=== PATIENT | male | born 1950 | race Caucasian/White ===

== ENCOUNTER 2017-05-19 10:59 | Day surgery (SDC) | payer OTHER ==
[2017-05-17 11:14] VITALS: BMI 31.1
[~2017-05-19 10:59] MED LIST: ALPRAZolam 0.25 MG TAB PO PRN; ASPIRIN 325 MG TAB PO STA; SODIUM CHLORIDE 0.9% 1,000 ML in EMPTY BAG 1 BAG IV ONE
[2017-05-19 11:41] LABS: Glucose,Whole Blood 126 mg/dL (75-99)
[2017-05-19] MEDS ORDERED: HEPARIN SODIUM 1,000 UN/ML (10ML VL) ONE ×2 (12:02→13:23)
[2017-05-19] MEDS ORDERED: LIDOCAINE 2% INJ 20 MG/ML (20 ML MDV) ONE (12:02)
[2017-05-19] MEDS ORDERED: VERAPAMIL 2.5 MG/ML 2 ML AMP ONE (12:02)
[2017-05-19] MEDS ORDERED: MIDAZOLAM 2 MG/2 ML VIAL ONE ×2 (12:02→12:45)
[2017-05-19] MEDS: MIDAZOLAM 2 MG/2 ML VIAL IV ONE ×2 (12:34→13:12)
[2017-05-19] MEDS ORDERED: fentaNYL (PF) 50 MCG/ML 2 ML AMP ONE (12:36)
[2017-05-19] MEDS ORDERED: LIDOCAINE 2% INJ 20 MG/ML SQ ONE ×2 (12:38→13:04)
[2017-05-19] MEDS ORDERED: fentaNYL (PF) 50 MCG/ML 2 ML AMP IV ONE ×2 (12:39→13:12)
[2017-05-19] MEDS ORDERED: MIDAZOLAM 2 MG/2 ML VIAL IV ONE (12:44)
[2017-05-19] MEDS ORDERED: VERAPAMIL SYRINGE (5 MG/10 ML) IV ONE (13:10)
[2017-05-19] MEDS ORDERED: HEPARIN SODIUM 1,000 UN/ML (10ML VL) IV ONE ×2 (13:12→13:27)
[2017-05-19] MEDS: NITROGLYCERIN 1000MCG/10ML SYRINGE INTRACORON ONE ×4 (13:34→13:57)
[2017-05-19] MEDS ORDERED: HYDROmorphone 2 MG/ML 1 ML SYRINGE ONE (14:02)
[2017-05-19] MEDS ORDERED: CLOPIDOGREL 75 MG TAB ONE (14:02)
[2017-05-19] MEDS ORDERED: HYDROmorphone 2 MG/ML 1 ML SYRINGE IV ONE (14:03)
[2017-05-19] MEDS ORDERED: CLOPIDOGREL 75 MG TAB PO ONE (14:06)
[2017-05-19] MEDS ORDERED: IOHEXOL 350 MG/ML 125ML BOTTLE INJ ONE (14:17)
[2017-05-19] MEDS ORDERED: NITROGLYCERIN SL TABS 0.4 MG TAB SUBLINGUAL PRN ×2 (14:20→14:21)
[2017-05-19] MEDS ORDERED: RX INFO: IV CONTRAST WAS GIVEN 1 EACH MISC MISCELLANE PRN (14:21)
[2017-05-19] MEDS ORDERED: ZOLPIDEM 5 MG TAB PO PRN (14:21)
[2017-05-19] MEDS ORDERED: MAG HYDROX/AL HYDROX/SIMETH 30 ML CUP PO PRN (14:21)
[2017-05-19] MEDS ORDERED: ATROPINE SULFATE 0.1 MG/ML 10ML SYRINGE IV PRN (14:21)
[2017-05-19] MEDS ORDERED: SODIUM CHLORIDE 0.9% 1,000 ML IV SCH (14:30)
[2017-05-19 14:53] LABS: Glucose,Whole Blood 100 mg/dL (75-99)
--- NOTE | 2017-05-19 15:03 | CC ---
CARDIAC CATHETERIZATION REPORT DATE OF SERVICE: 05/19/2017 PERFORMING PHYSICIAN: Pako Arias MD, Crisis Clinician. PROCEDURE PERFORMED: 1. Selective right and left coronary angiogram. 2. Successful stenting of the proximal left circumflex using a 3.5 x 15 mm Xience SARA with good angiographic results. 3. Successful stenting of the second obtuse marginal branch of the left circumflex using a 3.0 x 38 mm Xience SARA with good angiographic results. 4. Successful stenting of the mid left circumflex using a 3.25 x 8 mm Xience SARA with good angiographic results. INDICATION: This is a pleasant 66-year-old gentleman who was experiencing chest discomfort concerning for angina. He has multiple risk factors for CAD including severe underlying PAD and he underwent aortobifem in the past. APPROACH: Left radial artery. COMPLICATION: None. LEVEL OF SEDATION: Moderate with sedation length of 99 minutes. PROCEDURE DESCRIPTION: After obtaining informed consent, the patient was brought to the Cardiac Women[employer] Lac[employer]. Initially, I tried to access the right radial artery, but I was unable. At that point, I decided to access the left radial artery. After that, I did selective left and right coronary angiogram using JR4 and JL4 catheters. After that, I did intervene on the left circumflex. Please see a separate paragraph for that. SELECTIVE CORONARY ANGIOGRAM: 1. The right coronary artery is a large caliber vessel and it is a dominant vessel. The proximal RCA appeared to have mild disease only. The mid RCA has mild disease as well only. The RCA distally has a lesion appeared to be intermediate lesion in the range of 50% to 60%. The RCA distally bifurcates into PDA and PLV branches both are angiographically normal. 2. The left main is angiographically normal. It bifurcates into the circumflex and left anterior descending artery. 3. The left circumflex is a large caliber vessel. It is a nondominant vessel. The proximal left circumflex has critical and eccentric lesion in the range of 95%. This is just after the bifurcation of the first obtuse marginal branch which is a moderate caliber vessel with severe disease in the proximal portion. The circ after that lesion gives rise into the first OM branch which has a long tubular lesion in the range of 70%. The circumflex continued after that as intermediate caliber vessel in the AV groove. 4. The left anterior descending artery: The proximal LAD appeared to be angiographically normal. It gives rise into the first diagonal branch which has intermediate lesion in the proximal portion. The mid LAD appeared to have mild disease only and the LAD appeared to be angiographically normal distally. The LAD in the midportion gives rise into second diagonal which seems to be angiographically normal. 5. PCI of the left circumflex: Anticoagulation was initiated using heparin and the patient with continuous monitoring of ACT during the procedure. After that, I did wire the left circumflex using a whisper wire. After that, I did balloon angioplasty of the left circumflex. Subsequently, in the proximal portion, I did deploy 3.5 x 15 mm Xience SARA where the stent was positioned under fluoroscopy guidance and deployed under its nominal pressure. After that, for the first obtuse marginal branch, I deployed a 3.25 x 38 mm another Xience SARA where the stent was positioned under fluoroscopy guidance and deployed under its nominal pressure. In between 2 stents, there was a hazy lesion which I decided to stent, so I deployed 3.25 x 8 mm with overlap between the 2 stents. The following angiogram showed good angiographic results. CONCLUSION: 1. Intermediate disease involving the distal right coronary artery. 2. Short and angiographically normal left main. 3. Critical disease involving the proximal left circumflex and severe disease involving the second obtuse marginal branch of the left circumflex. 4. Intermediate disease involving the first diagonal branch of the left anterior descending artery. 5. Successful stenting of the left circumflex as described above. POSTPROCEDURE MANAGEMENT: 1. Maximize medical treatment. 2. Assess for ischemia in the RCA and diag territory either by a non-invasive or by FFR. MMODL / IJN: [id number] /
[2017-05-19] MEDS: ISOSORBIDE MONONITRATE ER 60 MG TAB.ER.24H PO SCH (20:19)
[2017-05-19 20:30] VITALS: RESP 18
[2017-05-19 21:40] LABS: Glucose,Whole Blood 110 mg/dL (75-99)
[2017-05-20 03:59] VITALS: TEMP 96.9
[2017-05-20 06:13] LABS: Glucose,Whole Blood 137 mg/dL (75-99)
[2017-05-20 06:19] LABS: Basophils % (A) 1 %; CH 29.8; CHCM 32.5; Eosinophils # (A) 0.1 k/uL (0-0.7); Eosinophils % (A) 2 %; HCT 40.1 % (39.0-53.0); HDW 2.62; HGB 12.9 gm/dL (13.0-17.5); Luc # (Auto) 0.13; Luc % (Auto) 2; Lymphocytes # (A) 1.2 k/uL (1.0-4.8); Lymphocytes % (A) 18 %; MCH 29.7 pg (25.0-35.0); MCHC 32.2 g/dL (31.0-37.0); MCV 92.1 fL (80.0-100.0); Mean Platelet Volume 9.4; Monocytes # (A) 0.5 k/uL (0-1.0); Monocytes % (A) 7 %; Neutrophils # (A) 4.8 k/uL (1.3-7.7); Neutrophils % (A) 71 %; RBC 4.35 m/uL (4.30-5.90); RDW 15.2 % (11.5-15.5); WBC 6.7 k/uL (3.8-10.6); WBC (Perox) 7.11
[2017-05-20 06:33] LABS: Anion Gap 6 mmol/L; Blood Urea Nitrogen 20 mg/dL (9-20); Calcium 8.9 mg/dL (8.4-10.2); Carbon Dioxide 24 mmol/L (22-30); Chloride 106 mmol/L (98-107); Glucose 135 mg/dL (74-99); Non-African American GFR(MDRD) >60 (>60 ml/min/1.73 sqM); Potassium 4.7 mmol/L (3.5-5.1); Sodium 136 mmol/L (137-145)
[2017-05-20] MEDS ORDERED: ATORVASTATIN 80 MG TAB PO SCH (09:00)
[2017-05-20] MEDS ORDERED: ASPIRIN 81 MG PO SCH (09:00)
[2017-05-20] MEDS ORDERED: GEMFIBROZIL 600 MG TAB PO SCH (09:00)
[2017-05-20] MEDS ORDERED: amLODIPine 10 MG TAB PO SCH (09:00)
[2017-05-20] MEDS ORDERED: LISINOPRIL 20 MG TAB PO SCH (09:00)
[2017-05-20] MEDS ORDERED: METOPROLOL SUCCINATE (ER) 100 MG TAB.ER.24H PO SCH (09:00)
[2017-05-20] MEDS ORDERED: CLOPIDOGREL 75 MG TAB PO SCH (09:00)
[2017-05-20] MEDS: ISOSORBIDE MONONITRATE ER 60 MG TAB.ER.24H PO SCH (09:45)
[2017-05-20 09:52] VITALS: BP 165/75; PULSE 56
--- NOTE | 2017-05-20 11:08 | P.PN ---
Subjective Progress Note Date: 05/20/17 Principal diagnosis: Circumflex stenting Discharge note This is a 66-year-old gentleman with history of diabetes, hypertension , hyperlipidemia, peripheral vascular disease with bilateral aortoiliac occlusive aorta some oral surgery as well as bilateral carotid endarterectomy. He follows with Dr. VC Willard in the office. He was admitted to the hospital to undergo cardiac catheterization. This was performed yesterday by Dr. Barrow, subsequently patient underwent angioplasty and stenting of the proximal and mid circumflex as well as stenting of the second obtuse marginal branch of the circumflex. Patient was seen and examined this morning, denies any chest pain or difficulty in breathing. EKG shows a normal sinus rhythm with no changes from post-PCI. White blood cell count 6.7, hemoglobin 12.9, platelet count 169. Sodium 136, potassium 4.7, BUN 20, creatinine 1.0. Objective - Vital Signs Vital signs: Vital Signs Temp 96.9 F L 05/20/17 03:56 Pulse 56 L 05/20/17 08:00 Resp 18 05/20/17 08:00 BP 165/75 05/20/17 08:00 Pulse Ox 94 L 05/20/17 08:00 Intake & Output 05/19/17 05/20/17 05/20/17 18:59 06:59 18:59 Intake Total 200 810 Balance 200 810 Weight 85.6 kg Intake: IV 200 810 0.9% NS FLUSH 10 mL 10 Sodium Chloride 0.9% 1, 100 800 000 ml @ 100 mls/hr IV . Q10H [facility] Rx#:[id number] - Exam PHYSICAL EXAMINATION: HEENT: Head is atraumatic, normocephalic. Pupils equal, round. Neck is supple. There is no elevated jugular venous pressure. HEART EXAMINATION: Heart S1, S2 normal. No murmur or gallop heard. CHEST EXAMINATION: Lungs are clear to auscultation and precussion. No chest wall tenderness is noted on palpation or with deep breathing. ABDOMEN: Soft, nontender. Bowel sounds are heard. No organomegaly noted. EXTREMITIES: 2+ peripheral pulses with no evidence of peripheral edema and no calf tenderness noted. Right radial site clean and dry, good distal pulse. NEUROLOGIC patient is awake, alert and oriented -3. . - Labs CBC & Chem 7: 05/20/17 06:04 05/20/17 06:04 Labs: Abnormal Lab Results - Last 24 Hours (Table) 05/19/17 05/19/17 05/19/17 Range/Units 11:35 14:43 21:37 Hgb (13.0-17.5) gm/dL Sodium (137-145) mmol/L Glucose (74-99) mg/dL POC Glucose (mg/dL) 126 H 100 H 110 H (75-99) mg/dL 05/20/17 05/20/17 05/20/17 Range/Units 06:04 06:04 06:07 Hgb 12.9 L (13.0-17.5) gm/dL Sodium 136 L (137-145) mmol/L Glucose 135 H (74-99) mg/dL POC Glucose (mg/dL) 137 H (75-99) mg/dL Assessment and Plan Plan: Assessment and plan #1 status post angioplasty and stenting of the circumflex as well as the OM branch of the circumflex. #2 diabetes #3 hypertension #4 hyperlipidemia #5 peripheral vascular disease with bilateral aortoiliac occlusive aortobifem surgery Plan Patient may be able to be discharged home today. We'll make him a follow-up appointment to see Dr. VC Willard in the office in one week. Patient will be discharged home on Norvasc 10 mg daily, Ecotrin 81 mg daily, Lipitor 80 mg daily , Plavix 75 mg daily, Lopid 600 mg daily, Imdur 60 mg one tablet by mouth twice a day, Lisinopril 20 milligrams daily, metoprolol tartrate 100 mg by mouth daily and sublingual nitroglycerin as needed for chest pain. Patient has been given instructions regarding activity limitations as well as education regarding his medications. DNP note has been reviewed, I agree with a documented findings and plan of care. Patient was seen and examined.
[2017-05-20] MEDS ORDERED: MULTIVITAMINS, THERA 1 EACH TAB PO SCH (12:00)
== END 2017-05-20 11:42 | disposition home or self-care (01) ==
LOC: CATHCVL 10:59 → 6SEL 14:20 → CATHCVL 05-20 11:42
PROVIDERS: ATTEND Internal Medicine Interventional Cardiology
DX: I25.110 Atherosclerotic heart disease of native coronary artery with unstable angina pectoris (principal); I10 Essential (primary) hypertension; Z87.891 Personal history of nicotine dependence; I73.9 Peripheral vascular disease, unspecified; E11.9 Type 2 diabetes mellitus without complications; E78.5 Hyperlipidemia, unspecified; Z79.84 Long term (current) use of oral hypoglycemic drugs; Z79.02 Long term (current) use of antithrombotics/antiplatelets; Z79.82 Long term (current) use of aspirin; Z79.899 Other long term (current) drug therapy; Z88.8 Allergy status to other drugs, medicaments and biological substances
CPT/HCPCS: 93454; 85347; 80048; 85025; C9600; C9601; C1769 ×2; C1887; C1894 ×2; C1725 ×2; C1874; J2001; J2250; J1170; J3010; J1644; Q9967

== ENCOUNTER 2023-10-11 07:40 | Inpatient (IN) | payer MEDICARE, OTHER ==
[2023-10-11 06:39] LABS: Glucose,Whole Blood 167 mg/dL (70-110)
[2023-10-11] MEDS: ALPRAZolam 0.5 MG TAB ONE (06:52)
[2023-10-11] MEDS: ASPIRIN 81 MG ONE (06:53)
[2023-10-11] MEDS: SODIUM CHLORIDE 0.9% 1,000 ML in EMPTY BAG 1 BAG IV SCH (06:58)
[2023-10-11] MEDS: ALBUTEROL NEBULIZED 2.5 MG/3 ML INHALATION SCH (07:38)
[2023-10-11] MEDS: IPRATROPIUM-ALBUTEROL 3 ML NEB INHALATION PRN (07:38)
[2023-10-11] MEDS: BUDESONIDE 0.5 MG/2 ML NEBU INHALATION SCH (07:38)
[~2023-10-11 07:40] MED LIST changes: -ASPIRIN 325 MG TAB PO STA; +NITROGLYCERIN SL TABS 0.4 MG TAB SUBLINGUAL PRN; -SODIUM CHLORIDE 0.9% 1,000 ML in EMPTY BAG 1 BAG IV ONE
[2023-10-11] MEDS: EZETIMIBE 10 MG TAB PO SCH (08:14)
[2023-10-11] MEDS: CLOPIDOGREL 75 MG TAB PO SCH (08:14)
[2023-10-11] MEDS: amLODIPine 10 MG TAB PO SCH (08:14)
[2023-10-11] MEDS: lisinopriL 20 MG TAB PO SCH (08:15)
[2023-10-11] MEDS: METOPROLOL SUCCINATE (ER) 50 MG TAB.ER.24H PO SCH (08:15)
[2023-10-11] MEDS: MULTIVITAMINS, THERA 1 EACH TAB PO SCH (08:15)
[2023-10-11] MEDS ORDERED: METOPROLOL SUCCINATE (ER) 25 MG TAB.ER.24H PO SCH (09:00)
[2023-10-11] MEDS: ASPIRIN 325 MG TAB PO STA (09:09)
[2023-10-11] MEDS: ISOSORBIDE MONONITRATE ER 60 MG TAB.ER.24H PO SCH (09:10)
[2023-10-11] MEDS: FENOFIBRATE 160 MG TAB PO SCH (09:46)
[2023-10-11] MEDS ORDERED: VERAPAMIL 2.5 MG/ML 2 ML AMP ONE (12:25)
[2023-10-11] MEDS ORDERED: LIDOCAINE 1% INJ 10MG/ML (20 ML MDV) ONE (12:25)
[2023-10-11] MEDS ORDERED: HEPARIN SODIUM 1,000 UN/ML (10ML VL) ONE (12:40)
--- NOTE | 2023-10-11 12:46 | P.HPIM ---
History of Present Illness 73-year-old male was transferred from [facility] where he presented with chest pain and elevated troponins patient was started on IV heparin for non-ST elevation myocardial infarction. Patient is going to cardiac catheterization today. REVIEW OF SYSTEMS: CONSTITUTIONAL: No fever, no malaise, no fatigue. HEENT: No recent visual problems or hearing problems. Denied any sore throat. CARDIOVASCULAR: No orthopnea, PND, no palpitations, no syncope. PULMONARY: No shortness of breath, no cough, no hemoptysis. GASTROINTESTINAL: No diarrhea, no nausea, no vomiting, no abdominal pain. NEUROLOGICAL: No headaches, no weakness, no numbness. HEMATOLOGICAL: Denies any bleeding or petechiae. GENITOURINARY: Denies any burning micturition, frequency, or urgency. MUSCULOSKELETAL/RHEUMATOLOGICAL: Denies any joint pain, swelling, or any muscle pain. ENDOCRINE: Denies any polyuria or polydipsia. The rest of the 14-point review of systems is negative. PHYSICAL EXAMINATION: GENERAL: The patient is alert and oriented x3, not in any acute distress. Well developed, well nourished. HEENT: Pupils are round and equally reacting to light. EOMI. No scleral icterus. No conjunctival pallor. Normocephalic, atraumatic. No pharyngeal erythema. No thyromegaly. CARDIOVASCULAR: S1 and S2 present. No murmurs, rubs, or gallops. PULMONARY: Chest is clear to auscultation, no wheezing or crackles. ABDOMEN: Soft, nontender, nondistended, normoactive bowel sounds. No palpable organomegaly. MUSCULOSKELETAL: No joint swelling or deformity. EXTREMITIES: No cyanosis, clubbing, or pedal edema. NEUROLOGICAL: Gross neurological examination did not reveal any focal deficits. SKIN: No rashes. Assessment and plan Acute non-ST elevation TN: Patient will undergo cardiac ablation continue with heparin at this time -Elevated uncontrolled blood pressures patient was started on high-dose of lisinopril -History of coronary disease and recent cardiac catheterization patient is presently on dual antiplatelet therapy beta-blockers -Type 2 diabetes mellitus patient will be started on sliding scale insulin and appropriate home regimen will be resumed -COPD without any acute exacerbation -Hyperlipidemia -Progressive disease -CVA TIA in the past DVT prophylaxis: Presently on IV heparin Past Medical History Past Medical History: Asthma, Chest Pain / Angina, COPD, CVA/TIA, Diabetes Mellitus, Hyperlipidemia, Hypertension, Osteoarthritis (OA), Vascular Disorder Additional Past Medical History / Comment(s): stroke 2014-no residual effects, hx. pancreatitis several yrs. ago History of Any Multi-Drug Resistant Organisms: None Reported Past Surgical History: Cholecystectomy, Heart Catheterization, Orthopedic Surgery, Tonsillectomy Additional Past Surgical History / Comment(s): aorto femoral bypass, repair of aneurysm in bypass, ORIF left lower leg, left stent carotid Past Anesthesia/Blood Transfusion Reactions: No Reported Reaction Past Psychological History: No Psychological Hx Reported Past Alcohol Use History: None Reported Additional Past Alcohol Use History / Comment(s): quit smoking 25 yrs. ago, smoked 1ppd for 20 yrs., hasn't drank for 13 yrs. Past Drug Use History: None Reported - Past Family History Father Family Medical History: Cancer Medications and Allergies Home Medications Medication Instructions Recorded Confirmed Type Aspirin 81 mg PO DAILY 05/17/17 10/11/23 History Atorvastatin [Lipitor] 80 mg PO DAILY 05/17/17 10/11/23 History Clopidogrel [Plavix] 75 mg PO DAILY 05/17/17 10/11/23 History Ipratropium/Albuterol Sulfate 1 - 2 puff INHALATION QID PRN 05/17/17 10/11/23 History [Combivent Respimat Inhaler] Isosorbide Mononitrate ER [Imdur] 60 mg PO DAILY 05/17/17 10/11/23 History Metoprolol Succinate (ER) [Toprol 25 mg PO DAILY 05/17/17 10/11/23 History XL] Multivitamin [Men's Multi-Vitamin] 1 each PO DAILY 05/17/17 10/11/23 History Nitroglycerin Sl Tabs [Nitrostat] 0.4 mg SUBLINGUAL Q5M PRN 05/17/17 10/11/23 History amLODIPine [Norvasc] 10 mg PO DAILY 05/17/17 10/11/23 History gemfibroziL [Lopid] 600 mg PO DAILY 05/17/17 10/11/23 History lisinopriL [Zestril] 20 mg PO DAILY 05/17/17 10/11/23 History metFORMIN HCL [Glucophage] 500 mg PO BID 05/17/17 10/11/23 History Albuterol Nebulized [Ventolin 2.5 mg INHALATION Q6H 10/11/23 10/11/23 History Nebulized] Budesonide [Pulmicort] 0.5 mg INHALATION BID 10/11/23 10/11/23 History Ezetimibe [Zetia] 10 mg PO DAILY 10/11/23 10/11/23 History Pioglitazone [Actos] 15 mg PO DAILY 10/11/23 10/11/23 History Allergies Allergy/AdvReac Type Severity Reaction Status Date / Time fenofibrate [From Tricor] AdvReac mild rash Verified 10/11/23 07:22 simvastatin [From Zocor] AdvReac mild rash Verified 10/11/23 07:22 Physical Exam Vitals: Vital Signs Temp Pulse Pulse Resp BP BP Pulse Ox 10/11/23 09:08 18 132/76 98 10/11/23 07:51 76 10/11/23 07:39 76 10/11/23 06:54 97.8 F 73 18 213/104 213/89 99 Intake and Output 10/10/23 10/11/23 10/11/23 22:59 06:59 14:59 Intake Total 350 Balance 350 Intake: IV 350 Other: Weight 119.3 kg Results Labs: Abnormal Lab Results - Last 24 Hours (Table) 10/11/23 Range/Units 06:28 POC Glucose (mg/dL) 167 H (70-110) mg/dL
[2023-10-11] MEDS ORDERED: fentaNYL (PF) 50 MCG/ML 2 ML AMP ONE (12:56)
[2023-10-11] MEDS: fentaNYL (PF) 50 MCG/ML 2 ML AMP IVP ONE ×2 (13:00→13:17)
[2023-10-11] MEDS: MIDAZOLAM 2 MG/2 ML VIAL IVP ONE (13:00)
[2023-10-11] MEDS: LIDOCAINE 1% INJ 10MG/ML (20 ML MDV) SQ ONE (13:00)
[2023-10-11] MEDS: VERAPAMIL SYRINGE (5 MG/10 ML) INTRAARTER ONE (13:17)
[2023-10-11] MEDS: HEPARIN SODIUM 1,000 UN/ML (10ML VL) IVP ONE (13:19)
[2023-10-11] MEDS: IOPAMIDOL-370 100ML BTL INJ ONE (13:38)
[2023-10-11] MEDS ORDERED: RX INFO: IV CONTRAST WAS GIVEN 1 EACH MISC MISCELLANE PRN (13:45)
--- NOTE | 2023-10-11 13:51 | P.PCN ---
Date of Procedure: 10/11/23 Operative Findings: CARDIAC CATHETERIZATION PERFORMING PHYSICIAN: Pako Arias MD, RPVI PROCEDURE PERFORMED: 1. Selective right and left coronary angiogram 2. IFR of the LAD and RCA 3. Ultrasound-guided access of the left radial artery INDICATION: Acute coronary syndrome COMPLICATION: None APPROACH: Right radial artery LEVEL OF SEDATION: Moderate with a sedation length of 41 minutes PROCEDURE DESCRIPTION: After obtaining an informed consent, the patient was brought to cardiac laborer pole crew. Local anesthesia was performed using lidocaine subcutaneously. The left radial artery was cannulated using Seldinger technique, the guidewire passed easily, following that we advanced a 5-Wallisian sheath dilator assembly, the wire and dilator were removed and sheath was flushed. Following that, 2 mg of verapamil along with 5000 unit heparin were given. Selective right and left coronary angiogram using a 6-Wallisian JR4 and JL 4 catheters. Following that I did an IFR of the LAD and RCA. After zeroing the Doppler wire and equalizing between the Doppler wire and initially JL 4 guiding catheter I did engage the left main and wired the LAD. The IFR came to be at 0.87. Subsequently I did equalized between the Doppler wire and JR4 guiding catheter and then the RCA was engaged and wired. The IFR came to be at 0.91 The procedure was completed there was no complication. SELECTIVE CORONARY ANGIOGRAM: The right coronary artery: Large-caliber vessel and a dominant vessel with intermediate disease involving the distal portion came in to be nonflow limiting by Doppler wire Left main: Is angiographically normal. Bifurcates into an LCx and LAD The left circumflex: Large-caliber vessel with a critical disease involving the obtuse marginal branch of the left circumflex and also in the distal left circumflex The left anterior descending artery: Large-caliber vessel with severe disease documented to be flow-limiting involving the mid LAD with a long lesion CONCLUSION: 1. Critical disease involving the first obtuse marginal branch and distal left circumflex 2. Severe disease involving the LAD documented to be flow-limiting by Doppler wire 3. Intermediate disease involving the RCA documented to be nonflow limiting by Doppler wire POSTPROCEDURE MANAGEMENT: Evaluated the patient by open heart team for CABG of the LAD and LCx
--- NOTE | 2023-10-11 16:10 | P.GSCN ---
History of Present Illness Consult date: 10/11/23 Reason for Consult: Coronary artery disease Requesting physician: Pako Arias History of present illness: This is a 73-year-old gentleman who follows outpatient with Dr. EDGARDO Franco for primary care and Dr. Arias for cardiology. He has a previous medical history of hypertension, hyperlipidemia, CVA in 2015, carotid stenosis with previous carotid stenting, type 2 diabetes, asthma, pancreatitis, severe PAD status post left lower extremity bypass at [facility] who still needs bypass on the right lower extremity, and previous tobacco dependence. The patient presented to [facility] due to complaints of hypertensive urgency with systolic blood pressure in the 200s. Lab work revealed elevated troponins and patient was ruled in for non-STEMI. He was transported to [facility] for heart catheterization which was completed today by Dr. Arias which demonstrated critical disease involving the first obtuse marginal branch and distal left circumflex, severe disease involving the LAD noted to be flow-limiting by Doppler wire, and intermediate disease involving the RCA noted to be nonflow limiting by Doppler wire. Due to this finding consultation was placed to Dr. Monte for recommendations regarding surgical revascularization versus stenting. Review of Systems Review of systems was completed and was negative except as noted - Cardiovascular Reports chest pain, Reports dyspnea on exertion, Reports high blood pressure Past Medical History Past Medical History: Asthma, Coronary Artery Disease (CAD), Chest Pain / Angina, COPD, CVA/TIA, Diabetes Mellitus, Hyperlipidemia, Hypertension, Osteoarthritis (OA), Vascular Disorder Additional Past Medical History / Comment(s): stroke 2014-no residual effects, hx. pancreatitis several yrs. ago; severe PAD; bilateral internal carotid stenosis History of Any Multi-Drug Resistant Organisms: None Reported Past Surgical History: Cholecystectomy, Heart Catheterization, Orthopedic Surgery, Tonsillectomy Additional Past Surgical History / Comment(s): aorto femoral bypass, repair of aneurysm in bypass, ORIF left lower leg, left stent carotid Past Anesthesia/Blood Transfusion Reactions: No Reported Reaction Past Psychological History: No Psychological Hx Reported Smoking Status: Former smoker Past Alcohol Use History: None Reported Additional Past Alcohol Use History / Comment(s): quit smoking 25 yrs. ago, smoked 1ppd for 20 yrs., hasn't drank for 13 yrs. Past Drug Use History: None Reported - Past Family History Father Family Medical History: Cancer Medications and Allergies Home Medications Medication Instructions Recorded Confirmed Type Aspirin 81 mg PO DAILY 05/17/17 10/11/23 History Atorvastatin [Lipitor] 80 mg PO DAILY 05/17/17 10/11/23 History Clopidogrel [Plavix] 75 mg PO DAILY 05/17/17 10/11/23 History Ipratropium/Albuterol Sulfate 1 - 2 puff INHALATION QID PRN 05/17/17 10/11/23 History [Combivent Respimat Inhaler] Isosorbide Mononitrate ER [Imdur] 60 mg PO DAILY 05/17/17 10/11/23 History Metoprolol Succinate (ER) [Toprol 25 mg PO DAILY 05/17/17 10/11/23 History XL] Multivitamin [Men's Multi-Vitamin] 1 each PO DAILY 05/17/17 10/11/23 History Nitroglycerin Sl Tabs [Nitrostat] 0.4 mg SUBLINGUAL Q5M PRN 05/17/17 10/11/23 History amLODIPine [Norvasc] 10 mg PO DAILY 05/17/17 10/11/23 History gemfibroziL [Lopid] 600 mg PO DAILY 05/17/17 10/11/23 History lisinopriL [Zestril] 20 mg PO DAILY 05/17/17 10/11/23 History metFORMIN HCL [Glucophage] 500 mg PO BID 05/17/17 10/11/23 History Albuterol Nebulized [Ventolin 2.5 mg INHALATION Q6H 10/11/23 10/11/23 History Nebulized] Budesonide [Pulmicort] 0.5 mg INHALATION BID 10/11/23 10/11/23 History Ezetimibe [Zetia] 10 mg PO DAILY 10/11/23 10/11/23 History Pioglitazone [Actos] 15 mg PO DAILY 10/11/23 10/11/23 History Allergies Allergy/AdvReac Type Severity Reaction Status Date / Time fenofibrate [From Tricor] AdvReac mild rash Verified 10/11/23 15:32 simvastatin [From Zocor] AdvReac mild rash Verified 10/11/23 15:32 Surgical - Exam Vital Signs Temp Pulse Resp BP Pulse Ox 97.8 F 73 18 213/104 99 10/11/23 06:54 10/11/23 06:54 10/11/23 06:54 10/11/23 06:54 10/11/23 06:54 CONSTITUTIONAL: Awake and alert, appears comfortable, cooperative, well- developed, well-nourished, no pain, no acute distress EYES: Pupils equal, round, reactive to light, normal ocular movement ENT: Moist mucous membranes without oral lesions present NECK: No masses, no bruits, trachea midline RESPIRATORY: Lungs sounds clear to auscultation bilaterally. Respirations even, nonlabored. Currently on room air with oxygen saturation 93%. Strong cough. No chest wall deformities. No clubbing or cyanosis present CARDIOVASCULAR: S1, S2 present. Regular rate and rhythm, sinus rhythm on telemetry. Doppler peripheral pulses. No edema present. No calf pain or tenderness noted GASTROINTESTINAL: Abdomen soft, nontender, nondistended without masses or organomegaly noted. There is no rebound or guarding present. Active bowel sounds present 4 quadrants. GENITOURINARY: Deferred INTEGUMENTARY: Skin is warm and dry NEUROLOGIC: Cranial nerves II through XII intact, normal coordination, no obvious motor or sensory deficits, speech is normal MUSKULOSKELETAL: Able to move all extremities, strength equal bilaterally, normal posture PSYCHIATRIC: Alert and oriented to person place and time, appropriate affect, intact judgment and insight Results - Labs Abnormal Lab Results - Last 24 Hours (Table) 10/11/23 Range/Units 06:28 POC Glucose (mg/dL) 167 H (70-110) mg/dL Assessment and Plan Assessment: Coronary artery disease, non-STEMI this admission Hypertension with hypertensive emergency present on admission Hyperlipidemia CVA in 2014 Carotid stenosis with previous carotid stenting Type 2 diabetes Asthma Pancreatitis Severe PAD status post left lower extremity bypass at [facility] who still needs bypass on the right lower extremity Previous tobacco dependence Plan: The patient was seen and examined laying in bed on the cardiac stepdown unit in no acute distress. His and daughter were present. Patient denies any c hest pain or shortness of breath currently. The usual perioperative course of open-heart surgery was discussed in detail, risks and benefits were reviewed, all questions were answered. Preoperative testing was initiated. Once preoperative testing completed we will calculate STS risk score. Patient will be seen tomorrow morning by Dr. Monte and decision made regarding surgery versus PCI. Recommend continuing to maximize medical therapy with aspirin, beta-ihsan, Zetia and fenofibrate. Would recommend atorvastatin or rosuvastatin, patient does have documented allergy to simvastatin. Patient did have Plavix this morning. Iincrease activity as tolerated. Encourage incentive spirometry use. Medical management of other comorbidities per internal medicine, cardiology. More recommendations to follow. Thank you Dr. Arias for this consult. I have personally seen and examined the patient, performed the documentation and the assessment and plan as written. Number of minutes spent on the visit: 30. CHEL Jacobsen
[2023-10-11 16:21] LABS: Glucose,Whole Blood 215 mg/dL (70-110)
--- NOTE | 2023-10-11 16:40 | US ---
EXAMINATION TYPE: US carotid duplex BILAT DATE OF EXAM: 10/11/2023 COMPARISON: NONE CLINICAL INDICATION: Male, 73 years old with history of preop cardiac surgery; Patient states his rig ht carotid system is 100% blocked. Preop cardiac surgery. Prior smoker, diabetes, hypertension, hyper lipidemia. Patient had stents placed in left carotid system. TECHNIQUE: Carotid duplex ultrasound examination. Indirect Doppler criteria was utilized. FINDINGS: EXAM MEASUREMENTS: RIGHT: Peak Systolic Velocity (PSV) cm/sec ----- Right CCA: 17.0 ----- Right ICA: 40.5 Measured trickle flow seen within proximal segment. No flow seen past this level within mid or distal right ICA. ----- Right ECA: 62.1 Trickle flow seen within. ICA/CCA ratio: 2.4 RIGHT: End Diastole cm/sec ----- Right CCA: 0.0 ----- Right ICA: 0.0 ----- Right ECA: 4.8 LEFT: Peak Systolic Velocity (PSV) cm/sec ----- Left CCA: 97.3 ----- Left ICA: 111.4 ----- Left ECA: 118.6 ICA/CCA ratio: 1.1 LEFT: End Diastole cm/sec ----- Left CCA: 21.7 ----- Left ICA: 28.5 ----- Left ECA: 11.0 VERTEBRALS (direction of flow): Right Vertebral: Antegrade Left Vertebral: Antegrade Rhythm: Arrhythmia GEOGRAPHIC INFORMATION SCIENTIST NOTES: Plaque seen within bilateral carotid systems. Trickle color flow seen within right proximal ICA, no blood flow seen past this level within mid or d istal ICA Trickle flow seen within right ECA. IMPRESSION: Critical stenosis proximal right ICA. Criteria for Assigning % of Stenosis / Diameter reduction (Estimation based on the indirect measurements of the internal carotid artery velocities (ICA PSV). 1. Normal (no stenosis)=ICA PSV < 125 cm/s: ratio < 2.0: ICA EDV<40 cm/s. 2. Less than 50% stenosis=ICA PSV < 125 cm/s: ratio < 2.0: ICA EDV<40 cm/s. 3. 50 to 69% stenosis=ICA PSV of 125 to 230 cm/s: ration 2.0 ? 4.0: ICA EDV 40-100 cm/s. 4. Greater than 70% stenosis to near occlusion= ICA PSV > 230 cm/s: ratio > 4.0: ICA EDV > 100 cm/s. 5. Near occlusion= ICA PSV velocities may be low or undetectable: variable ratio and ICA EDV. 6. Total occlusion=unable to detect flow.
[2023-10-11] MEDS: INSULIN ASPART (NovoLOG) 100 UNIT/ML VIAL SQ SCH (17:24)
--- NOTE | 2023-10-11 17:32 | CT ---
EXAMINATION TYPE: CT chest wo con DATE OF EXAM: 10/11/2023 COMPARISON: HISTORY: pre-op open heart CT DLP: 790.[address] of the chest was performed with lung and mediastinal window settings submitted. The la ck of contrast limits evaluation of the vascular, mediastinal and parenchymal structures including th e upper abdomen. LUNGS: The lungs are clear and free of infiltrate. No atelectasis. No pulmonary nodule or mass is de tected. No pleural effusion. No CT evidence of interstitial lung disease. MEDIASTINUM/BÁRBARA: Ascending thoracic aorta is ectatic at 3.9 cm without significant atheromatous goodrich ge. Mild atheromatous changes noted of a normal caliber aortic arch. Ectasia and atheromatous change of the descending thoracic aorta which is aneurysmal at 4.1 cm AP dimension. Mild cardiomegaly. No in direct evidence for dissection. No evidence for mediastinal mass. No lymph nodes greater than 1cm. UPPER ABDOMEN: Suprarenal abdominal aorta is partially imaged and demonstrates aneurysmal dilatation at 4.6 cm AP dimension. Atrophic changes right kidney. Exophytic cyst left kidney. OTHER: No significant other abnormality. IMPRESSION: 1. As above
[2023-10-11] MEDS: SODIUM CHLORIDE 0.9% 1,000 ML IV SCH (18:02)
[2023-10-11 20:10] LABS: Glucose,Whole Blood 108 mg/dL (70-110)
[2023-10-11] MEDS: ALPRAZolam 0.5 MG TAB PO PRN (23:43)
[2023-10-12] MEDS: MONTELUKAST 10 MG TAB PO SCH (00:35)
[2023-10-12 06:08] LABS: Glucose,Whole Blood 128 mg/dL (70-110)
[2023-10-12] MEDS ORDERED: HEPARIN SODIUM,PORCINE (1 ML) 2,500 UNIT in SODIUM CHLORIDE 0.9% 250 ML IRRIGATION PRN (07:00)
[2023-10-12] MEDS ORDERED: HEPARIN SODIUM,PORCINE 10,000 UNIT in SODIUM CHLORIDE 0.9% 1,000 ML IRRIGATION PRN (07:00)
[2023-10-12] MEDS: METOPROLOL SUCCINATE (ER) 25 MG TAB.ER.24H PO SCH (08:20)
--- NOTE | 2023-10-12 09:27 | CA ---
Transthoracic Echo Report Name: Steve Lea Age: 73 Gender: M : 1950 Exam Date: 10/12/2023 08:19 Exam Location: [facility] Ht (in): 70 Wt (lb): 263 Ordering Physician: Lorraine Molina Attending/Referring Phys: [id number], Jesse Track Fitter Ana Laura Chaves RDCS Procedure CPT: Indications: assess LV, valves for open heart Cardiac Hx: Technical Quality: Technically difficult study Contrast 1: Definity Total Dose (mL): 3 Contrast 2: Total Dose (mL): MEASUREMENTS (Male / Female) Normal Values 2D ECHO LV Diastolic Diameter PLAX 5.3 cm 4.2 - 5.9 / 3.9 - 5.3 cm LV Systolic Diameter PLAX 4.0 cm IVS Diastolic Thickness 1.4 cm 0.6 - 1.0 / 0.6 - 0.9 cm LVPW Diastolic Thickness 1.4 cm 0.6 - 1.0 / 0.6 - 0.9 cm LV Relative Wall Thickness 0.5 LVOT Diameter 2.4 cm Aortic Root Diameter 4.4 cm LA Systolic Diameter LX 3.6 cm 3.0 - 4.0 / 2.7 - 3.8 cm LV Diastolic Volume MOD BP 162.4 cm??? 67 - 155 / 56 - 104 cm??? LV Systolic Volume MOD BP 88.8 cm??? 22 - 58 / 19 - 49 cm??? LV Ejection Fraction MOD BP 45.3 % >= 55 % LV Cardiac Index MOD BP 1844.5 cm???/min???m??? LV Diastolic Volume MOD 4C 167.8 cm??? LV Systolic Volume MOD 4C 95.8 cm??? LV Ejection Fraction MOD 4C 42.9 % LV Cardiac Index MOD 4C 1803.5 cm???/min???m??? LV Diastolic Length 4C 9.3 cm LV Systolic Length 4C 7.8 cm LV Diastolic Volume MOD 2C 157.4 cm??? LV Systolic Volume MOD 2C 82.3 cm??? LV Ejection Fraction MOD 2C 47.7 % LV Cardiac Index MOD 2C 1879.6 cm???/min???m??? LV Diastolic Length 2C 9.0 cm LV Systolic Length 2C 7.6 cm DOPPLER AV Peak Velocity 139.2 cm/s AV Peak Gradient 7.7 mmHg AV Mean Velocity 92.4 cm/s AV Mean Gradient 4.0 mmHg AV Velocity Time Integral 32.8 cm LVOT Peak Velocity 87.8 cm/s LVOT Peak Gradient 3.1 mmHg LVOT Velocity Time Integral 19.6 cm LVOT Stroke Volume 86.2 cm??? LVOT Stroke Volume Index 36.8 ml/m??? LVOT Cardiac Index 2159.8 cm???/min???m??? AV Area Cont Eq vti 2.6 cm??? AV Area Cont Eq pk 2.8 cm??? MV Area PHT 3.1 cm??? Mitral E Point Velocity 83.8 cm/s Mitral A Point Velocity 115.6 cm/s Mitral E to A Ratio 0.7 MV Deceleration Time 245.7 ms FINDINGS Left Ventricle Left ventricular ejection fraction is estimated at 45-50 %. Mildly increased septal wall thickness. Mildly decreased left ventricular ejection fraction. Right Ventricle Normal right ventricular size. Unable to estimate the right ventricular systolic pressure. Right Atrium Normal right atrial size. Left Atrium Normal left atrial size. Mitral Valve Trace mitral regurgitation. Aortic Valve No aortic valve stenosis or regurgitation. Tricuspid Valve Trace tricuspid regurgitation. Pulmonic Valve Pulmonic valve not well visualized. Pericardium No pericardial effusion. Aorta Aortic root dilatation, measures 4.2-4.6 cm CONCLUSIONS Left ventricular ejection fraction 45-50% Mildly increased left ventricular wall thickness Trace mitral regurgitation Trace tricuspid regurgitation No pericardial effusion Previewed by: Dr. Christopher Jones DO (Electronically Signed) Final Date: 12 October 2023 09:26
[2023-10-12] MEDS: ASPIRIN 325 MG TAB PO STA (09:30)
[2023-10-12 10:03] LABS: Basophils % (A) 1 %; Eosinophils # (A) 0.2 k/uL (0-0.7); Eosinophils % (A) 3 %; HCT 42.8 % (39.0-53.0); HGB 12.8 gm/dL (13.0-17.5); Hypochromasia Moderate; Lymphocytes # (A) 0.7 k/uL (1.0-4.8); Lymphocytes % (A) 13 %; MCH 28.5 pg (25.0-35.0); MCHC 29.9 g/dL (31.0-37.0); MCV 95.3 fL (80.0-100.0); Mean Platelet Volume 9.7; Monocytes # (A) 0.4 k/uL (0-1.0); Monocytes % (A) 9 %; Neutrophils # (A) 3.6 k/uL (1.3-7.7); Neutrophils % (A) 72 %; Platelet Count 143 k/uL (150-450); RBC 4.49 m/uL (4.30-5.90); RDW 14.1 % (11.5-15.5)
[2023-10-12 10:31] LABS: African American GFR (CKD) 88 (>60 ml/min/1.73 sqM); Anion Gap 7 mmol/L; Blood Urea Nitrogen 19 mg/dL (9-20); Calcium 8.8 mg/dL (8.4-10.2); Carbon Dioxide 25 mmol/L (22-30); Chloride 106 mmol/L (98-107); Glucose 136 mg/dL (74-99); Magnesium 1.9 mg/dL (1.6-2.3); Non-African American GFR(CKD) 76 (>60 ml/min/1.73 sqM); Potassium 4.3 mmol/L (3.5-5.1); Sodium 138 mmol/L (137-145)
[2023-10-12 11:43] LABS: Glucose,Whole Blood 135 mg/dL (70-110)
[2023-10-12] MEDS ORDERED: VERAPAMIL 2.5 MG/ML 2 ML AMP ONE (12:00)
[2023-10-12] MEDS ORDERED: HEPARIN SODIUM 1,000 UN/ML (10ML VL) ONE (12:15)
[2023-10-12] MEDS ORDERED: CLOPIDOGREL 75 MG TAB ONE (12:20)
[2023-10-12] MEDS: MIDAZOLAM 2 MG/2 ML VIAL IVP ONE ×4 (12:23→12:54)
[2023-10-12] MEDS: CLOPIDOGREL 75 MG TAB PO ONE (12:23)
[2023-10-12] MEDS: fentaNYL (PF) 50 MCG/1 ML VIAL IVP ONE ×6 (12:23→13:05)
[2023-10-12] MEDS: HEPARIN SODIUM 1,000 UN/ML (10ML VL) IVP ONE (12:31)
[2023-10-12] MEDS ORDERED: fentaNYL (PF) 50 MCG/ML 2 ML AMP ONE (12:47)
[2023-10-12] MEDS ORDERED: NITROGLYCERIN SL TABS 0.4 MG TAB SUBLINGUAL ONE (12:52)
[2023-10-12] MEDS: NITROGLYCERIN SL TABS 0.4 MG TAB SUBLINGUAL ONE (12:53)
[2023-10-12] MEDS: NITROGLYCERIN 1000MCG/10ML SYRINGE INTRACORON ONE (13:09)
[2023-10-12] MEDS ORDERED: ATROPINE SULFATE 0.1 MG/ML 10ML SYRINGE IV PRN (13:18)
[2023-10-12] MEDS ORDERED: MAG HYDROX/AL HYDROX/SIMETH 30 ML CUP PO PRN (13:18)
[2023-10-12] MEDS ORDERED: NITROGLYCERIN SL TABS 0.4 MG TAB SUBLINGUAL PRN (13:18)
[2023-10-12] MEDS ORDERED: RX INFO: IV CONTRAST WAS GIVEN 1 EACH MISC MISCELLANE PRN (13:18)
[2023-10-12] MEDS: IOPAMIDOL-370 100ML BTL INTRATHECA ONE ×2 (13:21→13:22)
[2023-10-12] MEDS: SODIUM CHLORIDE 0.9% 1,000 ML IV ONE (13:23)
--- NOTE | 2023-10-12 13:25 | P.PCN ---
Date of Procedure: 10/12/23 Operative Findings: PERCUTANEOUS CORONARY INTERVENTION Performing physician Pako Arias M.D. Procedure Performed: 1. Successful stenting of the OM 2 using 3.5 x 23 mm Xience drug-eluting stent with an excellent angiographic results. 2. Successful stending of the proximal and mid LAD using 4.0 x 28 and 3.5 x 15 mm Xience drug-eluting stent with an excellent angiographic result. 3. Adjunctive use of intravascular imaging 4. Ultrasound-guided access of the left radial artery Indication: Acute coronary syndrome in this 73-year-old gentleman who underwent a heart catheterization and was found to have severe two-vessel CAD involving the LCx and LAD and intermediate one-vessel CAD involving the RCA. He was seen by the surgical team for an evaluation of CABG and he was deemed to be a better candidate to undergo PCI done open heart. Approach: Left radial artery Complications: None Level of Sedation: Moderate with a sedation length of 53 minutes Procedure Discussion: After obtaining informed consent the patient was brought to the cardiac [employer]. The left radial artery was cannulated using micropuncture technique under ultrasound guidance and the micropuncture wire passed easily then I placed a 6 Lao 11 cm sheath at the left radial artery. At that point anticoagulation was initiated using heparin and the patient was given 6000's of heparin IV with continuous ACT monitoring. He was already on Plavix. The left main coronary artery was cannulated using CLS 3.5 guiding catheter. Subsequently I wired the left circumflex and OM using a run-through wire. Intravascular imaging performed and showed a diameter around 3.5 mm. Predilatation was performed using 3 mm noncompliant balloon before I deployed 3.5 x 23 mm stent where the stent was positioned under fluoroscopy guidance and deployed under fluoroscopy guidance and subsequently postdilated using noncompliant balloon with final angiogram showing excellent angiographic results. Subsequently the wire was directed toward the LAD. At that point I did intravascular imaging of the LAD and showed diameter around 3.5 to 4 mm. Predilatation was performed using 3.5 mm balloon before I deployed a 4.0 x 28 mm stent in the proximal LAD and in the mid LAD I deployed a 3.5 x 15 mm stent with postdilatation was performed using 4.5 mm balloon. Final angiogram showed excellent angiographic results. That was confirmed by intravascular imaging as well. Please note that I wired the diagonal branch to protect the diagonal branch but by the end there was good flow in the diagonal branch. Postprocedure Management: 1. Dual antiplatelet therapy for at least 12 months using aspirin and Plavix 2. The patient is statin intolerance. Currently he is on Zetia 3. Aggressive cholesterol control and risk factors modification
[2023-10-12 13:59] LABS: T4, Free (Free Thyroxine) 0.76 ng/dL (0.78-2.19)
[2023-10-12] MEDS: SODIUM CHLORIDE 0.9% 1,000 ML in EMPTY BAG 1 BAG IV SCH (14:38)
[2023-10-12] MEDS: NITROGLYCERIN-D5W PMX 50 MG in DEXTROSE/WATER 1 250ML.BAG IV SCH (15:31)
--- NOTE | 2023-10-12 15:43 | P.PN ---
Subjective Progress Note Date: 10/12/23 73-year-old male was transferred from [facility] where he presented with chest pain and elevated troponins patient was started on IV heparin for non-ST elevation myocardial infarction. Patient is going to cardiac catheterization today. 10/12/2023 Patient is evaluated today resting in bed. He was evaluated by the cardiothoracic team and current recommendations are to undergo PCI of the LAD and left circ lesion. Patient did have a carotid doppler done showing critical stenosis of the right ICA however per patient and family this is chronic in nature. He does have history of left sided carotid stenting. Patient on dual antiplatelet therapy with aspirin and plavix for the next 12 months. Patient not on statin therapy due to an intolerance. Echocardiogram comes back with an EF 45-50%, trace MR, trace TR, no pericardial effusion. Review of Systems Constitutional: Denied any fatigue denied any fever. Cardio vascular: denied any chest pain, palpitations Gastrointestinal: denied any nausea, vomiting, diarrhea Pulmonary: Denied any shortness of breath cough Neurologic denied any new focal deficits All inpatient medications were reviewed and appropriate changes in these medications as dictated in the interval history and assessment and plan. PHYSICAL EXAMINATION: GENERAL: The patient is alert and oriented x3, not in any acute distress. Well developed, well nourished. HEENT: Pupils are round and equally reacting to light. EOMI. No scleral icterus. No conjunctival pallor. Normocephalic, atraumatic. No pharyngeal erythema. No thyromegaly. CARDIOVASCULAR: S1 and S2 present. No murmurs, rubs, or gallops. PULMONARY: Chest is clear to auscultation, no wheezing or crackles. ABDOMEN: Soft, nontender, nondistended, normoactive bowel sounds. No palpable organomegaly. MUSCULOSKELETAL: No joint swelling or deformity. EXTREMITIES: No cyanosis, clubbing, or pedal edema. NEUROLOGICAL: Gross neurological examination did not reveal any focal deficits. SKIN: No rashes. Assessment and plan Acute non-ST elevation MT: Patient is s/p PCI to LAD and left circ lesion, not a surgical candidate for revascularization. He is on dual antiplatelet therapy. -Elevated uncontrolled blood pressures patient was started on high-dose of lisinopril, BP has improved. -History of coronary disease and recent cardiac catheterization patient is presently on dual antiplatelet therapy beta-blockers -Type 2 diabetes mellitus patient will be started on sliding scale insulin and appropriate home regimen will be resumed -COPD/Asthma without any acute exacerbation -Carotid artery stenosis with left carotid stenting. Patient has known occluded right carotid artery. -Hyperlipidemia -Peripheral artery disease with prior aortofemoral bypass -CVA TIA in the past -Former smoker GI prophylaxis DVT prophylaxis: subcu heparin Full Code Patient will be monitored overnight on cardiac telemetry. Possible D/C home in the next 24-48 hours. The impression and plan of care has been dictated by Maggie Middleton Nurse Practitioner as directed. Dr. Nel MD I have performed a history and physical examination and medical decision making of this patient, discussed the same with the dictator, and agree with the dictators assessment and plan as written, documented as a scribe. Based on total visit time, I have performed more than 50% of this visit. Objective - Vital Signs Vital signs: Vital Signs Temp 98.4 F 10/12/23 11:46 Pulse 70 10/12/23 14:03 Resp 18 10/12/23 14:03 BP 155/82 10/12/23 14:03 Pulse Ox 94 L 10/12/23 14:03 FiO2 Intake & Output 10/11/23 10/12/23 10/12/23 18:59 06:59 18:59 Intake Total 100 300 Balance 100 300 Weight 119.3 kg Intake: IV 100 300 Other: # Voids 1 - Labs CBC & Chem 7: 10/12/23 09:19 10/12/23 09:03 Labs: Abnormal Lab Results - Last 24 Hours (Table) 10/11/23 10/12/23 10/12/23 Range/Units 16:19 06:06 09:03 Hgb (13.0-17.5) gm/dL MCHC (31.0-37.0) g/dL Plt Count (150-450) k/uL Lymphocytes # (1.0-4.8) k/uL Glucose (74-99) mg/dL POC Glucose (mg/dL) 215 H 128 H (70-110) mg/dL Hemoglobin A1c 6.6 H (<=6.0) % TSH (0.465-4.680) mIU/L Free T4 (0.78-2.19) ng/dL 10/12/23 10/12/23 10/12/23 Range/Units 09:03 09:19 11:41 Hgb 12.8 L (13.0-17.5) gm/dL MCHC 29.9 L (31.0-37.0) g/dL Plt Count 143 L (150-450) k/uL Lymphocytes # 0.7 L (1.0-4.8) k/uL Glucose 136 H (74-99) mg/dL POC Glucose (mg/dL) 135 H (70-110) mg/dL Hemoglobin A1c (<=6.0) % TSH 6.300 H (0.465-4.680) mIU/L Free T4 0.76 L (0.78-2.19) ng/dL
[2023-10-12 15:50] LABS: Hepatitis A Antibody IgM Nonreactive (Nonreactive); Hepatitis B Core IgM Nonreactive (Nonreactive); Hepatitis B Surface Antigen Nonreactive (Nonreactive); Hepatitis C IgG Antibody Nonreactive (Nonreactive)
[2023-10-12 15:52] LABS: Chol/HDL Ratio 5.62 Ratio
[2023-10-12 16:41] LABS: Glucose,Whole Blood 146 mg/dL (70-110)
[2023-10-13 06:12] LABS: Glucose,Whole Blood 154 mg/dL (70-110)
[2023-10-13] MEDS: CLOPIDOGREL 75 MG TAB PO SCH (09:37)
[2023-10-13] MEDS: NITROGLYCERIN OINT 1 INCH/GM PACKET TOPICAL SCH (10:42)
[2023-10-13] MEDS: LEVOTHYROXINE 50 MCG TAB PO SCH (10:42)
[2023-10-13] MEDS: METOPROLOL SUCCINATE (ER) 25 MG TAB.ER.24H PO STA (10:42)
[2023-10-13] MEDS: hydrALAZINE HCL 50 MG TAB PO SCH (10:42)
[2023-10-13] MEDS: ASPIRIN 81 MG PO SCH (10:43)
[2023-10-13 10:59] VITALS: BMI 35.6
[2023-10-13 11:24] LABS: Glucose,Whole Blood 188 mg/dL (70-110)
--- NOTE | 2023-10-13 12:02 | P.PN ---
Subjective HISTORY OF PRESENT ILLNESS: This is a 73-year-old male who follows the office with Dr. Arias. Patient underwent cardiac catheterization yesterday with stenting of the OM 2, and proximal and mid LAD. Patient examined this morning the bedside. Patient apparently had some chest pain after his procedure and overnight and is currently on IV nitro. He denies any chest pain at the time of examination. He denies any shortness of breath. He does report feeling very anxious. Telemetry reveals sinus mechanism. Blood pressure is elevated with a reading of 187/84. Echocardiogram completed revealing ejection fraction 45 to 50%, trace MR, trace TR PHYSICAL EXAM: VITAL SIGNS: Reviewed. GENERAL: Well-developed in no acute distress. NECK: Supple. No JVD or thyromegaly LUNGS: Respirations even and unlabored. Lungs essentially clear to auscultation bilaterally. HEART: Regular rate and rhythm. S1 and S2 heard. EXTREMITIES: Normal range of motion. No clubbing or cyanosis. Peripheral pulses intact. No lower extremity edema ASSESSMENT: Coronary artery disease, status post PCI of OM2 and proximal LAD, and mid LAD Mild ischemic cardiomyopathy, 45 to 50% Hypertension Hyperlipidemia with statin intolerance PLAN: Discontinue IV nitro Begin Nitropaste 1 inch every 8 hours Begin hydralazine 50 mg 3 times daily Increase metoprolol succinate to 50 mg daily Continue telemetry monitoring Continue to monitor blood pressure Further recommendations pending patient course Nurse practitioner note has been reviewed by physician. Signing provider agrees with the documented findings, assessment, and plan of care documented by AVIATION MANAGER as a scribe. Objective - Vital Signs Vital signs: Vital Signs Temp 97.4 F L 10/13/23 09:27 Pulse 90 10/13/23 09:27 Resp 18 10/13/23 09:27 BP 187/84 10/13/23 09:27 Pulse Ox 95 10/13/23 09:27 FiO2 Intake & Output 10/12/23 10/13/23 10/13/23 18:59 06:59 18:59 Intake Total 660 222 Balance 660 222 Weight 119.3 kg Intake: IV 300 Oral 360 222 Other: Voiding Method Toilet - Labs CBC & Chem 7: 10/12/23 09:19 10/12/23 09:03 Labs: Abnormal Lab Results - Last 24 Hours (Table) 10/12/23 10/12/23 10/12/23 Range/Units 09:03 09:03 16:40 Glucose 136 H (74-99) mg/dL POC Glucose (mg/dL) 146 H (70-110) mg/dL Hemoglobin A1c 6.6 H (<=6.0) % Triglycerides 402.00 H (0.00-149.00) mg/dL VLDL Cholesterol, Calc 80.40 H (5.00-40.00) mg/dL HDL Cholesterol 33.60 L (40.00-60.00) mg/dL TSH 6.300 H (0.465-4.680) mIU/L Free T4 0.76 L (0.78-2.19) ng/dL 10/13/23 10/13/23 Range/Units 06:10 11:22 Glucose (74-99) mg/dL POC Glucose (mg/dL) 154 H 188 H (70-110) mg/dL Hemoglobin A1c (<=6.0) % Triglycerides (0.00-149.00) mg/dL VLDL Cholesterol, Calc (5.00-40.00) mg/dL HDL Cholesterol (40.00-60.00) mg/dL TSH (0.465-4.680) mIU/L Free T4 (0.78-2.19) ng/dL
--- NOTE | 2023-10-13 15:10 | P.PN ---
Subjective Progress Note Date: 10/13/23 73-year-old male was transferred from [facility] where he presented with chest pain and elevated troponins patient was started on IV heparin for non-ST elevation myocardial infarction. Patient is going to cardiac catheterization today. 10/12/2023 Patient is evaluated today resting in bed. He was evaluated by the cardiothoracic team and current recommendations are to undergo PCI of the LAD and left circ lesion. Patient did have a carotid doppler done showing critical stenosis of the right ICA however per patient and family this is chronic in nature. He does have history of left sided carotid stenting. Patient on dual antiplatelet therapy with aspirin and plavix for the next 12 months. Patient not on statin therapy due to an intolerance. Echocardiogram comes back with an EF 45-50%, trace MR, trace TR, no pericardial effusion. 10/13/2023 Patient evaluated in the medical floor. He is sleepy today. He underwent cardiac catheterization and had 2 stents placed to LAD and 1 stent to the OM. He continues on dual antiplatelet therapy. Blood pressure remains elevated with adjustments to blood pressure medications being made by cardiology. Patient is not reporting any chest pressure at this time. His TSH did come back elevated at 6.300 and a free T4 of 0.76. Hemoglobin A1c of 6.6. Lipid panel reveals triglyceride level of 402, cholesterol 189, LDL 67, HDL 33.60. Blood pressure i n the 180s systolic. Review of Systems Constitutional: Denied any fatigue denied any fever. Cardio vascular: denied any chest pain, palpitations Gastrointestinal: denied any nausea, vomiting, diarrhea Pulmonary: Denied any shortness of breath cough Neurologic denied any new focal deficits All inpatient medications were reviewed and appropriate changes in these medications as dictated in the interval history and assessment and plan. PHYSICAL EXAMINATION: GENERAL: The patient is alert and oriented x3, not in any acute distress. Well developed, well nourished. HEENT: Pupils are round and equally reacting to light. EOMI. No scleral icterus. No conjunctival pallor. Normocephalic, atraumatic. No pharyngeal erythema. No thyromegaly. CARDIOVASCULAR: S1 and S2 present. No murmurs, rubs, or gallops. PULMONARY: Chest is clear to auscultation, no wheezing or crackles. ABDOMEN: Soft, nontender, nondistended, normoactive bowel sounds. No palpable organomegaly. MUSCULOSKELETAL: No joint swelling or deformity. EXTREMITIES: No cyanosis, clubbing, or pedal edema. NEUROLOGICAL: Gross neurological examination did not reveal any focal deficits. SKIN: No rashes. Assessment and plan Acute non-ST elevation AL: Patient is s/p PCI x 2 to the LAD and one stent to the OM. not a surgical candidate for revascularization. He is on dual antiplatelet therapy. Had chest pain post cath and current on nitro paste. -Elevated uncontrolled blood pressures patient was started on lisinopril, and hydralazine. Beta ihsan has been increased. -History of coronary disease and recent cardiac catheterization patient is presently on dual antiplatelet therapy beta-blockers -Type 2 diabetes mellitus patient will be started on sliding scale insulin and appropriate home regimen will be resumed -Hypothyroidism with elevated TSH and decreaed T4. Started on low dose levothyroxine and recommend to repeat levels outpatient. -COPD/Asthma without any acute exacerbation -Carotid artery stenosis with left carotid stenting. Patient has known occluded right carotid artery. -Hyperlipidemia -Peripheral artery disease with prior aortofemoral bypass -CVA TIA in the past -Former smoker GI prophylaxis DVT prophylaxis: subcu heparin Full Code Patient will be monitored overnight on cardiac telemetry. Blood pressure medications are adjusted. Cardiology following. Possible D/C home in the next 24-48 hours. The impression and plan of care has been dictated by Maggie Middleton, Nurse Practitioner as directed. Dr. Nel MD I have performed a history and physical examination and medical decision making of this patient, discussed the same with the dictator, and agree with the dictators assessment and plan as written, documented as a scribe. Based on total visit time, I have performed more than 50% of this visit. Objective - Vital Signs Vital signs: Vital Signs Temp 97.4 F L 10/13/23 09:27 Pulse 92 10/13/23 12:12 Resp 18 10/13/23 12:12 BP 169/81 10/13/23 12:12 Pulse Ox 88 L 10/13/23 12:12 FiO2 Intake & Output 10/12/23 10/13/23 10/13/23 18:59 06:59 18:59 Intake Total 660 444 Balance 660 444 Weight 119.3 kg Intake: IV 300 Oral 360 444 Other: Voiding Method Toilet - Labs CBC & Chem 7: 10/12/23 09:19 10/12/23 09:03 Labs: Abnormal Lab Results - Last 24 Hours (Table) 10/12/23 10/12/23 10/12/23 Range/Units 09:03 09:03 16:40 Glucose 136 H (74-99) mg/dL POC Glucose (mg/dL) 146 H (70-110) mg/dL Hemoglobin A1c 6.6 H (<=6.0) % Triglycerides 402.00 H (0.00-149.00) mg/dL VLDL Cholesterol, Calc 80.40 H (5.00-40.00) mg/dL HDL Cholesterol 33.60 L (40.00-60.00) mg/dL TSH 6.300 H (0.465-4.680) mIU/L Free T4 0.76 L (0.78-2.19) ng/dL 10/13/23 10/13/23 Range/Units 06:10 11:22 Glucose (74-99) mg/dL POC Glucose (mg/dL) 154 H 188 H (70-110) mg/dL Hemoglobin A1c (<=6.0) % Triglycerides (0.00-149.00) mg/dL VLDL Cholesterol, Calc (5.00-40.00) mg/dL HDL Cholesterol (40.00-60.00) mg/dL TSH (0.465-4.680) mIU/L Free T4 (0.78-2.19) ng/dL Assessment and Plan Time with Patient: Less than 30
--- NOTE | 2023-10-13 16:02 | XR ---
EXAMINATION TYPE: XR chest 1V DATE OF EXAM: 10/13/2023 3:51 PM CLINICAL INDICATION:Male, 73 years old with history of hypoxia; [facility] COMPARISON: CT chest 10/11/2023. TECHNIQUE: XR chest 1V Frontal view of the chest. FINDINGS: Lungs/Pleura: There is no evidence of pleural effusion, focal consolidation, or pneumothorax. Pulmonary vascularity: Unremarkable. Heart/mediastinum: Cardiomediastinal silhouette is unremarkable. Musculoskeletal: No acute osseous pathology. IMPRESSION: No acute cardiopulmonary disease/process.
[2023-10-13 16:36] LABS: Glucose,Whole Blood 150 mg/dL (70-110)
[2023-10-13 20:28] LABS: Glucose,Whole Blood 122 mg/dL (70-110)
[2023-10-13] MEDS: ZOLPIDEM 5 MG TAB PO PRN (22:07)
[2023-10-14 04:42] VITALS: RESP 18
[2023-10-14 06:27] LABS: Glucose,Whole Blood 143 mg/dL (70-110)
[2023-10-14] MEDS: METOPROLOL SUCCINATE (ER) 50 MG TAB.ER.24H PO SCH (07:57)
[2023-10-14 08:36] VITALS: BP 113/66; TEMP 98.1
[2023-10-14 12:05] LABS: Glucose,Whole Blood 131 mg/dL (70-110)
[2023-10-14] MEDS: ISOSORBIDE MONONITRATE ER 60 MG TAB.ER.24H PO SCH (12:06)
--- NOTE | 2023-10-14 12:30 | P.PN ---
Subjective HISTORY OF PRESENT ILLNESS: This is a 73-year-old male who follows the office with Dr. Arias. Patient underwent cardiac catheterization yesterday with stenting of the OM 2, and proximal and mid LAD. Patient examined this morning the bedside. Patient apparently had some chest pain after his procedure and overnight and is currently on IV nitro. He denies any chest pain at the time of examination. He denies any shortness of breath. He does report feeling very anxious. Telemetry reveals sinus mechanism. Blood pressure is elevated with a reading of 187/84. Echocardiogram completed revealing ejection fraction 45 to 50%, trace MR, trace TR 10/14/2023 Patient examined this morning. He is sitting up in the chair. He denies chest pain or pressure. Denies SOB. Vital signs are stable. PHYSICAL EXAM: VITAL SIGNS: Reviewed. GENERAL: Well-developed in no acute distress. NECK: Supple. No JVD or thyromegaly LUNGS: Respirations even and unlabored. Lungs essentially clear to auscultation bilaterally. HEART: Regular rate and rhythm. S1 and S2 heard. EXTREMITIES: Normal range of motion. No clubbing or cyanosis. Peripheral pulses intact. No lower extremity edema ASSESSMENT: Coronary artery disease, status post PCI of OM2 and proximal LAD, and mid LAD Mild ischemic cardiomyopathy, 45 to 50% Hypertension Hyperlipidemia with statin intolerance [place] [employer] class 1-2 PLAN: Continue dual antiplatelet therapy with aspirin and Plavix for 12 months Patient with statin intolerance. Continue Zetia and fenofibrate. Continue additional cardiac medications Discontinue Nitropaste and begin Imdur 60 mg daily Patient may be discharged home today from a cardiac standpoint He is to follow-up in the office with Dr. Arias Nurse practitioner note has been reviewed by physician. Signing provider agrees with the documented findings, assessment, and plan of care documented by REBAR WORKER as a scribe. Objective - Vital Signs Vital signs: Vital Signs Temp 98.1 F 10/14/23 07:58 Pulse 84 10/14/23 08:41 Resp 18 10/14/23 07:58 BP 113/66 10/14/23 07:58 Pulse Ox 94 L 10/14/23 08:12 FiO2 Intake & Output 10/13/23 10/14/23 10/14/23 18:59 06:59 18:59 Intake Total 444 120 Balance 444 120 Weight 119.3 kg Intake: Oral 444 120 Other: Voiding Method Toilet Toilet # Voids 3 2 - Labs CBC & Chem 7: 10/12/23 09:19 10/12/23 09:03 Labs: Abnormal Lab Results - Last 24 Hours (Table) 10/13/23 10/13/23 10/14/23 Range/Units 16:35 20:26 06:25 POC Glucose (mg/dL) 150 H 122 H 143 H (70-110) mg/dL 10/14/23 Range/Units 12:02 POC Glucose (mg/dL) 131 H (70-110) mg/dL
[2023-10-14 13:34] VITALS: PULSE 82
--- NOTE | 2023-10-16 18:52 | P.DS ---
Providers Date of admission: 10/11/23 07:40 Attending physician: Terrell Silva Consults: 10/11/23 13:46 Consult Physician Routine Consulting Provider: Ishaan Monte Consult Reason/Comments: Evaluation for CABG Do you want consulting provider notified?: Already Contacted 10/12/23 10:10 Consult Physician Routine Consulting Provider: Pako Arias Consult Reason/Comments: CAD Do you want consulting provider notified?: Already Contacted 10/12/23 13:18 Consult Physician Routine Consulting Provider: [facility] Consult Reason/Comments: Post Interventional patient Do you want consulting provider notified?: Already Contacted Primary care physician: Juan Carlos Franco Hospital Course: Final Diagnosis Acute non-ST elevation RI: Patient is s/p PCI x 2 to the LAD and one stent to the OM. not a surgical candidate for revascularization. He is on dual antiplatelet therapy. -Elevated uncontrolled blood pressures patient was started on lisinopril, and hydralazine. Beta ihsan has been increased. -History of coronary disease and recent cardiac catheterization patient is presently on dual antiplatelet therapy beta-blockers -Type 2 diabetes mellitus -Hypothyroidism with elevated TSH and decreaed T4. Started on low dose levothyroxine and recommend to repeat levels outpatient. -COPD/Asthma without any acute exacerbation -Carotid artery stenosis with left carotid stenting. Patient has known occluded right carotid artery. -Hyperlipidemia -Peripheral artery disease with prior aortofemoral bypass -CVA TIA in the past -Former smoker Full Code Discharge Disposition Patient is stable for discharge home. Patient is status post cardiac catheterization had 2 stents placed to the LAD and 1 stent to the OM. He is on dual antiplatelet therapy and also send on a beta-ihsan. Patient was found to have hypothyroidism and has been started on a low-dose of levothyroxine 50 mcg daily and recommending to repeat levels outpatient with his PCP. Hospital Course This is a 73 year old male with medical history of type 2 diabetes, hypothyroidism, COPD asthma, carotid artery stenosis with prior left cardiac stenting patient has a known occluded right carotid artery. Hyperlipidemia, peripheral artery disease. Patient was originally admitted to [facility] for chest pain and was recommended to undergo cardiac catheterization as he had elevated troponin levels he was brought over to [facility]. Patient underwent cardiac catheterization with stenting of the OM 2, and proximal and mid LAD. Patient apparently had some chest pain after his procedure and overnight and required IV nitro. Telemetry reveals sinus mechanism. Blood pressure is elevated with a reading of 187/84. Echocardiogram completed revealing ejection fraction 45 to 50%, trace MR, trace TR. Patient was also found to have an elevated TSH and low T4. He was started on levothyroxine. His beta ihsan was increased he is on dual antiplatelet therapy. He is now denying chest pain, shortness of breath. Hemodynamically he is stable. Discharged home. Please see medication reconciliation for a list of current medications. Thank you for allowing us to participate in the care of this patient. The impression and plan of care has been dictated by Maggie Middleton, Nurse Practitioner as directed. Dr. Nel MD I have performed a history and physical examination and medical decision making of this patient, discussed the same with the dictator, and agree with the dictators assessment and plan as written, documented as a scribe. Based on total visit time, I have performed more than 50% of this visit. Patient Condition at Discharge: Stable Plan - Discharge Summary Discharge Rx Participant: No New Discharge Prescriptions: New hydrALAZINE HCL [Apresoline] 25 mg PO TID #90 tab Levothyroxine Sodium [Synthroid] 50 mcg PO DAILY@0630 #30 tab Metoprolol Succinate (ER) [Toprol XL] 50 mg PO DAILY #30 tab Famotidine [Pepcid] 20 mg PO DAILY #30 tablet Continue Nitroglycerin Sl Tabs [Nitrostat] 0.4 mg SL Q5M PRN PRN Reason: Chest Pain Aspirin 81 mg PO DAILY lisinopriL [Zestril] 20 mg PO DAILY Isosorbide Mononitrate ER [Imdur] 60 mg PO DAILY amLODIPine [Norvasc] 10 mg PO DAILY Ipratropium/Albuterol Sulfate [Combivent Respimat Inhaler] 1 puff INHALATION RT-QID PRN PRN Reason: Shortness Of Breath gemfibroziL [Lopid] 600 mg PO BID Clopidogrel [Plavix] 75 mg PO DAILY Atorvastatin [Lipitor] 80 mg PO DAILY Multivitamin [Men's Multi-Vitamin] 1 tab PO DAILY Budesonide [Pulmicort] 0.5 mg INHALATION RT-BID Ascorbic Acid [Vitamin C] 1,500 mg PO DAILY Montelukast [Singulair] 10 mg PO HS Pioglitazone [Actos] 15 mg PO DAILY Ezetimibe [Zetia] 10 mg PO DAILY Albuterol Nebulized [Ventolin Nebulized] 2.5 mg INHALATION RT-QID PRN PRN Reason: Shortness Of Breath Fish Oil 1600mg 3 cap PO DAILY Cholecalciferol [Vitamin D3 (125 Mcg = 5000 Iu)] 125 mcg PO DAILY metFORMIN HCL ER [Glucophage XR] 500 mg PO BID Zinc Gluconate [Zinc] 50 mg PO DAILY Discontinued Metoprolol Succinate (ER) [Toprol Xl] 25 mg PO DAILY Discharge Medication List Aspirin 81 mg PO DAILY 05/17/17 [History] Atorvastatin [Lipitor] 80 mg PO DAILY 05/17/17 [History] Clopidogrel [Plavix] 75 mg PO DAILY 05/17/17 [History] Ipratropium/Albuterol Sulfate [Combivent Respimat Inhaler] 1 puff INHALATION RT- QID PRN 05/17/17 [History] Isosorbide Mononitrate ER [Imdur] 60 mg PO DAILY 05/17/17 [History] Multivitamin [Men's Multi-Vitamin] 1 tab PO DAILY 05/17/17 [History] Nitroglycerin Sl Tabs [Nitrostat] 0.4 mg SL Q5M PRN 05/17/17 [History] amLODIPine [Norvasc] 10 mg PO DAILY 05/17/17 [History] gemfibroziL [Lopid] 600 mg PO BID 05/17/17 [History] lisinopriL [Zestril] 20 mg PO DAILY 05/17/17 [History] Albuterol Nebulized [Ventolin Nebulized] 2.5 mg INHALATION RT-QID PRN 10/11/23 [History] Ascorbic Acid [Vitamin C] 1,500 mg PO DAILY 10/11/23 [History] Budesonide [Pulmicort] 0.5 mg INHALATION RT-BID 10/11/23 [History] Cholecalciferol [Vitamin D3 (125 Mcg = 5000 Iu)] 125 mcg PO DAILY 10/11/23 [History] Ezetimibe [Zetia] 10 mg PO DAILY 10/11/23 [History] Fish Oil 1600mg 3 cap PO DAILY 10/11/23 [History] Montelukast [Singulair] 10 mg PO HS 10/11/23 [History] Pioglitazone [Actos] 15 mg PO DAILY 10/11/23 [History] Zinc Gluconate [Zinc] 50 mg PO DAILY 10/11/23 [History] metFORMIN HCL ER [Glucophage XR] 500 mg PO BID 10/11/23 [History] Famotidine [Pepcid] 20 mg PO DAILY #30 tablet 10/14/23 [Rx] Levothyroxine Sodium [Synthroid] 50 mcg PO DAILY@0630 #30 tab 10/14/23 [Rx] Metoprolol Succinate (ER) [Toprol XL] 50 mg PO DAILY #30 tab 10/14/23 [Rx] hydrALAZINE HCL [Apresoline] 25 mg PO TID #90 tab 10/14/23 [Rx] Follow up Appointment(s)/Referral(s): Pako Arias MD [STAFF PHYSICIAN] - 10/19/23 4:45 pm Juan Carlos Franco MD [Primary Care Provider] - 1-2 Days Ambulatory/Diagnostic Orders: Basic Metabolic Panel [LAB.AMB] Time Frame: 3 Days, Location: None Selected Patient Instructions/Handouts: Moderate Sedation (DC), Left Heart Catheterization (DC) Activity/Diet/Wound Care/Special Instructions: Need to repeat thyroid studies outpatient in 2 to 3 days Discharge Disposition: HOME SELF-CARE
== END 2023-10-14 14:37 | disposition home or self-care (01) | DRG 322 ==
LOC: 3SCARD 07:40
PROVIDERS: ADMIT Hospitalist; ATTEND Hospitalist
PROC: 4A033BC Measurement of Arterial Pressure, Coronary, Percutaneous Approach (ICD-10-PCS; 2023-10-11 07:30)
PROC: B2111ZZ Fluoroscopy of Multiple Coronary Arteries using Low Osmolar Contrast (ICD-10-PCS; 2023-10-11 07:30)
PROC: 027136Z Dilation of Coronary Artery, Two Arteries with Three Drug-eluting Intraluminal Devices, Percutaneous Approach (ICD-10-PCS; principal; 2023-10-12 08:25)
PROC: B241ZZ3 Ultrasonography of Multiple Coronary Arteries, Intravascular (ICD-10-PCS; 2023-10-12 08:25)
PROC: 4A023N7 Measurement of Cardiac Sampling and Pressure, Left Heart, Percutaneous Approach (ICD-10-PCS; 2023-10-12 08:25)
DX: I21.4 Non-ST elevation (NSTEMI) myocardial infarction (principal); I16.1 Hypertensive emergency; I25.10 Atherosclerotic heart disease of native coronary artery without angina pectoris; I10 Essential (primary) hypertension; I65.21 Occlusion and stenosis of right carotid artery; I25.5 Ischemic cardiomyopathy; Z79.02 Long term (current) use of antithrombotics/antiplatelets; Z79.4 Long term (current) use of insulin; Z79.82 Long term (current) use of aspirin; Z79.84 Long term (current) use of oral hypoglycemic drugs; Z79.899 Other long term (current) drug therapy; Z86.73 Personal history of transient ischemic attack (TIA), and cerebral infarction without residual deficits; Z87.891 Personal history of nicotine dependence; J44.89 Other specified chronic obstructive pulmonary disease; E78.5 Hyperlipidemia, unspecified; I08.1 Rheumatic disorders of both mitral and tricuspid valves; E11.51 Type 2 diabetes mellitus with diabetic peripheral angiopathy without gangrene; E03.9 Hypothyroidism, unspecified; Z79.890 Hormone replacement therapy
CPT/HCPCS: 71045; 71250; 76937; 80048; 80061; 80074; 83036; 83721; 83735; 84439; 84443; 85025; 92978; 92979; 93306; 93454; 93799; 93880; 94150; 94640; 94760

== ENCOUNTER 2023-12-27 02:16 | Inpatient (IN) | payer MEDICARE ==
[2023-12-27] MEDS: ASPIRIN 81 MG PO STA (02:41)
[2023-12-27] MEDS: SODIUM CHLORIDE 0.9% 1,000 ML IV STA (02:41)
[2023-12-27] MEDS: NITROGLYCERIN OINT 1 INCH/GM PACKET TOPICAL SCH (02:44)
[2023-12-27 03:02] LABS: Basophils % (A) 1 %; Eosinophils # (A) 0.2 k/uL (0-0.7); Eosinophils % (A) 3 %; HCT 39.9 % (39.0-53.0); HGB 12.9 gm/dL (13.0-17.5); Lymphocytes % (A) 20 %; MCH 29.9 pg (25.0-35.0); MCHC 32.4 g/dL (31.0-37.0); MCV 92.4 fL (80.0-100.0); Mean Platelet Volume 9.4; Monocytes # (A) 0.5 k/uL (0-1.0); Monocytes % (A) 10 %; Neutrophils # (A) 3.2 k/uL (1.3-7.7); Neutrophils % (A) 64 %; Platelet Count 152 k/uL (150-450); RBC 4.31 m/uL (4.30-5.90)
[2023-12-27 03:03] LABS: INR 0.9 (<1.2); Partial Thromboplastin Time 22.1 sec (22.0-30.0); Prothrombin Time 10.5 sec (10.0-12.5)
--- NOTE | 2023-12-27 03:26 | ED ---
General Adult HPI - General Chief complaint: Chest Pain Stated complaint: chest pain Time Seen by Provider: 12/27/23 02:21 Source: patient, EMS, RN notes reviewed, old records reviewed Mode of arrival: EMS - History of Present Illness Initial comments: Patient is a 73-year-old male presents emergency department complaining of chest pain. Has a significant cardiac history consisting of multiple cardiac stents, multiple carotid stents. Also history of COPD, hypertension, hyperlipidemia, asthma. States chest pain began while at home this occurred at approximately 10 or 11 PM last night. Described as a ache, pressure substernal that resolved after taking 2 sublingual nitroglycerin tablets. Contacted EMS and presented for further evaluation at this time. Rest of breath. Denies nausea or vomiting with the chest pain. Denies diaphoresis. - Related Data Home Medications Medication Instructions Recorded Confirmed Aspirin 81 mg PO DAILY 05/17/17 10/11/23 Atorvastatin [Lipitor] 80 mg PO DAILY 05/17/17 10/11/23 Clopidogrel [Plavix] 75 mg PO DAILY 05/17/17 10/11/23 Ipratropium/Albuterol Sulfate 1 puff INHALATION RT-QID PRN 05/17/17 10/11/23 [Combivent Respimat Inhaler] Isosorbide Mononitrate ER [Imdur] 60 mg PO DAILY 05/17/17 10/11/23 Multivitamin [Men's Multi-Vitamin] 1 tab PO DAILY 05/17/17 10/11/23 Nitroglycerin Sl Tabs [Nitrostat] 0.4 mg SL Q5M PRN 05/17/17 10/11/23 amLODIPine [Norvasc] 10 mg PO DAILY 05/17/17 10/11/23 gemfibroziL [Lopid] 600 mg PO BID 05/17/17 10/11/23 lisinopriL [Zestril] 20 mg PO DAILY 05/17/17 10/11/23 Albuterol Nebulized [Ventolin 2.5 mg INHALATION RT-QID PRN 10/11/23 10/11/23 Nebulized] Ascorbic Acid [Vitamin C] 1,500 mg PO DAILY 10/11/23 10/11/23 Budesonide [Pulmicort] 0.5 mg INHALATION RT-BID 10/11/23 10/11/23 Cholecalciferol [Vitamin D3 (125 125 mcg PO DAILY 10/11/23 10/11/23 Mcg = 5000 Iu)] Ezetimibe [Zetia] 10 mg PO DAILY 10/11/23 10/11/23 Fish Oil 1600mg 3 cap PO DAILY 10/11/23 10/11/23 Montelukast [Singulair] 10 mg PO HS 10/11/23 10/11/23 Pioglitazone [Actos] 15 mg PO DAILY 10/11/23 10/11/23 Zinc Gluconate [Zinc] 50 mg PO DAILY 10/11/23 10/11/23 metFORMIN HCL ER [Glucophage XR] 500 mg PO BID 10/11/23 10/11/23 Previous Rx's Medication Instructions Recorded Famotidine [Pepcid] 20 mg PO DAILY #30 tablet 10/14/23 Levothyroxine Sodium [Synthroid] 50 mcg PO DAILY@0630 #30 tab 10/14/23 Metoprolol Succinate (ER) [Toprol 50 mg PO DAILY #30 tab 10/14/23 XL] hydrALAZINE HCL [Apresoline] 25 mg PO TID #90 tab 10/14/23 Allergies Allergy/AdvReac Type Severity Reaction Status Date / Time fenofibrate [From Tricor] AdvReac mild rash Verified 10/11/23 15:32 simvastatin [From Zocor] AdvReac mild rash Verified 10/11/23 15:32 Review of Systems ROS Statement: Those systems with pertinent positive or pertinent negative responses have been documented in the HPI. Review of Systems: CONST: Denies fever EYES: Denies blurry vision ENT: Denies nasal congestion C/V: Denies current chest pain RESP: Denies shortness of breath GI: Denies abdominal pain : Denies dysuria SKIN: Denies rash. MSK: Denies joint pain. NEURO: Denies headache ROS Other: All systems not noted in ROS Statement are negative. Past Medical History Past Medical History: Asthma, Coronary Artery Disease (CAD), Chest Pain / Angina, COPD, CVA/TIA, Diabetes Mellitus, Hyperlipidemia, Hypertension, Osteoarthritis (OA), Vascular Disorder Additional Past Medical History / Comment(s): stroke 2014-no residual effects, hx. pancreatitis several yrs. ago; severe PAD; bilateral internal carotid stenosis History of Any Multi-Drug Resistant Organisms: None Reported Past Surgical History: Cholecystectomy, Heart Catheterization, Orthopedic Surgery, Tonsillectomy Additional Past Surgical History / Comment(s): aorto femoral bypass, repair of a neurysm in bypass, ORIF left lower leg, left stent carotid Past Anesthesia/Blood Transfusion Reactions: No Reported Reaction Date of Last Stent Placement:: 2016 Past Psychological History: No Psychological Hx Reported Smoking Status: Former smoker Past Alcohol Use History: None Reported Past Drug Use History: None Reported - Past Family History Father Family Medical History: Cancer General Exam - General Exam Comments Initial Comments: General: Appears in no acute distress. HEAD: Normal with no signs of head trauma. EYES: PERRLA, EOMI, conjunctiva normal, no discharge. ENT: Hearing grossly intact, normal oropharynx. RESPIRATORY: Clear breath sounds bilaterally. No wheezes, rales, or rhonchi. C/V: Regular rate and rhythm. S1 and S2 auscultated, no edema, peripheral pulses 2+ and intact throughout ABD: Abd is soft, nontender, nondistended EXT: Normal range of motion, no obvious deformity SKIN: No rashes or lesions observed on exposed skin. NEURO: Alert and oriented x 4. Course Vital Signs 12/27/23 12/27/23 12/27/23 02:20 02:34 04:08 Temperature 97.8 F Pulse Rate 81 84 Pulse Rate [ 78 Bilateral Sitting Radial] Respiratory 20 18 Rate Blood Pressure 172/97 172/88 O2 Sat by Pulse 94 L 94 L Oximetry 12/27/23 05:14 Temperature Pulse Rate 80 Pulse Rate [ Bilateral Sitting Radial] Respiratory 18 Rate Blood Pressure 167/86 O2 Sat by Pulse 90 L Oximetry Medical Decision Making - Medical Decision Making Was pt. sent in by a medical professional or institution (, PA, SITE MONITOR, urgent care, hospital, or half-way...) When possible be specific @ -No Did you speak to anyone other than the patient for history (EMS, parent, family, police, friend...)? What history was obtained from this source @ -No Did you review nursing and triage notes (agree or disagree)? Why? @ -I reviewed and agree with nursing and triage notes Were old charts reviewed (outside hosp., previous admission, EMS record, old EKG, old radiological studies, urgent care reports/EKG's, half-way records)? Report findings @ -Labs reviewed from October 2023 when patient received multiple cardiac stents. EKG reviewed from this time and there is no significant change. Differential Diagnosis (chest pain, altered mental status, abdominal pain women, abdominal pain men, vaginal bleeding, weakness, fever, dyspnea, syncope, headac he, dizziness, GI bleed, back pain, seizure, CVA, palpatations, mental health, musculoskeletal)? @ -Differential Chest Pain: Stable Angina, Unstable Angina, STEMI, NSTEMI Aortic Dissection, Pneumothorax, Musculoskeletal, Esophageal Spasm GERD, Cholecystitis, Pancreatitis, Zoster, this is not meant to be an all-inclusive list. EKG interpreted by me (3pts min.). @ -As above X-rays interpreted by me (1pt min.). @ -Chest x-ray reveals no obvious acute cardiopulmonary process. CT interpreted by me (1pt min.). @ -None done U/S interpreted by me (1pt. min.). @ -None done What testing was considered but not performed or refused? (CT, X-rays, U/S, labs)? Why? @ -None What meds were considered but not given or refused? Why? @ -None Did you discuss the management of the patient with other professionals (professionals i.e. , PA, SITE MONITOR, lab, RT, psych nurse, social media project manager, facility administrator, teacher, loan service officer, case operator)? Give summary @ -Spoke with city call admitting physician, Dr. Kiser who accepted the admission. Was smoking cessation discussed for >3mins.? @ -No Was critical care preformed (if so, how long)? @ -No Were there social determinants of health that impacted care today? How? (Homelessness, low income, unemployed, alcoholism, drug addiction, transportation, low edu. Level, literacy, decrease access to med. care, detention, rehab)? @ -No Was there de-escalation of care discussed even if they declined (Discuss DNR or withdrawal of care, Hospice)? DNR status @ -No What co-morbidities impacted this encounter? (DM, HTN, Smoking, COPD, CAD, Cancer, CVA, ARF, Chemo, Hep., AIDS, mental health diagnosis, sleep apnea, morbid obesity)? @ -CAD, history of cardiac stents, hypertension, hyperlipidemia Was patient admitted / discharged? Hospital course, mention meds given and route, prescriptions, significant lab abnormalities, going to OR and other pertinent info. @ -Based on the patient's presentation and physical exam, presents emergency department complaining of chest pain. Currently is pain-free. Seems to have resolved with nitro. Patient received 324 mg of aspirin as well as Nitropaste. He also received 1 L fluid bolus. Will obtain cardiopulmonary workup. Patient in agreement this plan. Vital signs within acceptable limits. Chest x-ray shows no signs of obvious acute cardiopulmonary process. EKG shows no signs of obvious acute ischemia.Labs remarkable for troponin indeterminate 0.025. Remainder the labs unremarkable. On reevaluation, patient remains asymptomatic. I would like to admit him to the hospital due to his elevated heart score. He was in agreement this plan. Vital signs within acceptable limits. Cardiology consulted. I spoke with city call admitting physician Dr. Kiser who accepted the admission. Undiagnosed new problem with uncertain prognosis? @ -No Drug Therapy requiring intensive monitoring for toxicity (Heparin, Nitro, Insulin, Cardizem)? @ -No Were any procedures done? @ -No Diagnosis/symptom? @ -Chest pain Acute, or Chronic, or Acute on Chronic? @ -Acute Uncomplicated (without systemic symptoms) or Complicated (systemic symptoms)? @ -Complicated Side effects of treatment? @ -None Exacerbation, Progression, or Severe Exacerbation] @ -No Poses a threat to life or bodily function? @ -Yes - Lab Data Result diagrams: 12/27/23 02:40 12/27/23 02:40 Lab Results 12/27/23 12/27/23 12/27/23 Range/Units 02:40 02:40 02:40 WBC 5.0 (3.8-10.6) k/uL RBC 4.31 (4.30-5.90) m/uL Hgb 12.9 L (13.0-17.5) gm/dL Hct 39.9 (39.0-53.0) % MCV 92.4 (80.0-100.0) fL MCH 29.9 (25.0-35.0) pg MCHC 32.4 (31.0-37.0) g/dL RDW 15.0 (11.5-15.5) % Plt Count 152 (150-450) k/uL MPV 9.4 Neutrophils % 64 % Lymphocytes % 20 % Monocytes % 10 % Eosinophils % 3 % Basophils % 1 % Neutrophils # 3.2 (1.3-7.7) k/uL Lymphocytes # 1.0 (1.0-4.8) k/uL Monocytes # 0.5 (0-1.0) k/uL Eosinophils # 0.2 (0-0.7) k/uL Basophils # 0.0 (0-0.2) k/uL PT 10.5 (10.0-12.5) sec INR 0.9 (<1.2) APTT 22.1 (22.0-30.0) sec Sodium 139 (137-145) mmol/L Potassium 4.0 (3.5-5.1) mmol/L Chloride 109 H (98-107) mmol/L Carbon Dioxide 23 (22-30) mmol/L Anion Gap 7 mmol/L BUN 18 (9-20) mg/dL Creatinine 0.93 (0.66-1.25) mg/dL Est GFR (CKD-EPI)AfAm >90 (>60 ml/min/1.73 sqM) Est GFR (CKD-EPI)NonAf 83 (>60 ml/min/1.73 sqM) Glucose 126 H (74-99) mg/dL Calcium 9.1 (8.4-10.2) mg/dL Magnesium 1.8 (1.6-2.3) mg/dL Total Bilirubin 0.4 (0.2-1.3) mg/dL AST 33 (17-59) U/L ALT 27 (4-49) U/L Alkaline Phosphatase 99 (38-126) U/L Troponin I (0.000-0.034) ng/mL Total Protein 6.3 (6.3-8.2) g/dL Albumin 4.1 (3.5-5.0) g/dL Lipase 105 (23-300) U/L 12/27/23 Range/Units 02:40 WBC (3.8-10.6) k/uL RBC (4.30-5.90) m/uL Hgb (13.0-17.5) gm/dL Hct (39.0-53.0) % MCV (80.0-100.0) fL MCH (25.0-35.0) pg MCHC (31.0-37.0) g/dL RDW (11.5-15.5) % Plt Count (150-450) k/uL MPV Neutrophils % % Lymphocytes % % Monocytes % % Eosinophils % % Basophils % % Neutrophils # (1.3-7.7) k/uL Lymphocytes # (1.0-4.8) k/uL Monocytes # (0-1.0) k/uL Eosinophils # (0-0.7) k/uL Basophils # (0-0.2) k/uL PT (10.0-12.5) sec INR (<1.2) APTT (22.0-30.0) sec Sodium (137-145) mmol/L Potassium (3.5-5.1) mmol/L Chloride (98-107) mmol/L Carbon Dioxide (22-30) mmol/L Anion Gap mmol/L BUN (9-20) mg/dL Creatinine (0.66-1.25) mg/dL Est GFR (CKD-EPI)AfAm (>60 ml/min/1.73 sqM) Est GFR (CKD-EPI)NonAf (>60 ml/min/1.73 sqM) Glucose (74-99) mg/dL Calcium (8.4-10.2) mg/dL Magnesium (1.6-2.3) mg/dL Total Bilirubin (0.2-1.3) mg/dL AST (17-59) U/L ALT (4-49) U/L Alkaline Phosphatase (38-126) U/L Troponin I 0.025 (0.000-0.034) ng/mL Total Protein (6.3-8.2) g/dL Albumin (3.5-5.0) g/dL Lipase (23-300) U/L - EKG Data -: EKG Interpreted by Me EKG Comments: 12-lead Electrocardiogram Interpretation Note EKG was reviewed and interpreted by myself. 12-lead ECG performed at 0220 is interpreted by me as revealing normal sinus rhythm at a rate of 84 beats per minute. Left axis deviation. MN interval is 209 ms, QRS duration is 122 ms, QT c is 442 ms.. There were no obvious acute ST or T wave abnormalities to suggest myocardial ischemia or injury. R wave progression across the precordium was satisfactory. By my interpretation this EKG is non-diagnostic for acute ischemia. Compared with EKG from October 2023 which showed no obvious acute change. Disposition Clinical Impression: Chest pain Disposition: ADMITTED IP TO THIS HOSP Condition: Stable Time of Disposition: 04:30
[2023-12-27 03:39] LABS: ALT 27 U/L (4-49); AST 33 U/L (17-59); African American GFR (CKD) >90 (>60 ml/min/1.73 sqM); Albumin 4.1 g/dL (3.5-5.0); Alkaline Phosphatase 99 U/L (38-126); Anion Gap 7 mmol/L; Blood Urea Nitrogen 18 mg/dL (9-20); Calcium 9.1 mg/dL (8.4-10.2); Carbon Dioxide 23 mmol/L (22-30); Chloride 109 mmol/L (98-107); Glucose 126 mg/dL (74-99); Lipase 105 U/L (23-300); Magnesium 1.8 mg/dL (1.6-2.3); Non-African American GFR(CKD) 83 (>60 ml/min/1.73 sqM); Sodium 139 mmol/L (137-145); Total Bilirubin 0.4 mg/dL (0.2-1.3); Total Protein 6.3 g/dL (6.3-8.2)
[2023-12-27] MEDS ORDERED: NALOXONE 0.4 MG/ML 1 ML VIAL IV PRN (04:37)
[2023-12-27] MEDS ORDERED: ONDANSETRON 4 MG/2 ML VIAL IVP PRN (04:37)
--- NOTE | 2023-12-27 05:04 | XR ---
EXAM: XR Chest, 2 Views CLINICAL HISTORY: ITS.REASON XR Reason: Chest Pain TECHNIQUE: Frontal and lateral views of the chest. COMPARISON: CXR October 13, 2023. FINDINGS: Lungs: Unremarkable. No consolidation. Pleural space: Unremarkable. No pneumothorax. Heart: Cardiomegaly. Mediastinum: Unremarkable. Normal mediastinal contour. Bones/joints: Unremarkable. No acute fracture. Vasculature: Atherosclerotic changes of the aorta. IMPRESSION: No acute findings in the chest.
[2023-12-27] MEDS: SODIUM CHLORIDE 0.9% 1,000 ML IV SCH (07:40)
[2023-12-27] MEDS: IPRATROPIUM-ALBUTEROL 3 ML NEB INHALATION PRN (07:58)
[2023-12-27] MEDS: BUDESONIDE 0.5 MG/2 ML NEBU INHALATION SCH (07:58)
[2023-12-27] MEDS ORDERED: HEPARIN SODIUM 1,000 UN/ML (10ML VL) IV PRN (08:12)
[2023-12-27] MEDS ORDERED: ALPRAZolam 0.5 MG TAB PO PRN (08:13)
[2023-12-27] MEDS ORDERED: NITROGLYCERIN SL TABS 0.4 MG TAB SUBLINGUAL PRN ×2 (08:13→12:40)
[2023-12-27 08:52] LABS: Basophils % (A) 1 %; Eosinophils # (A) 0.1 k/uL (0-0.7); Eosinophils % (A) 2 %; HCT 39.9 % (39.0-53.0); HGB 12.8 gm/dL (13.0-17.5); Lymphocytes # (A) 0.8 k/uL (1.0-4.8); Lymphocytes % (A) 18 %; MCH 30.1 pg (25.0-35.0); MCHC 32.1 g/dL (31.0-37.0); MCV 93.7 fL (80.0-100.0); Mean Platelet Volume 9.4; Monocytes # (A) 0.4 k/uL (0-1.0); Monocytes % (A) 8 %; Neutrophils # (A) 3.1 k/uL (1.3-7.7); Neutrophils % (A) 69 %; Platelet Count 142 k/uL (150-450); RBC 4.26 m/uL (4.30-5.90); RDW 14.8 % (11.5-15.5); WBC 4.5 k/uL (3.8-10.6)
[2023-12-27] MEDS ORDERED: lisinopriL 20 MG TAB PO SCH (09:00)
[2023-12-27 09:03] LABS: Partial Thromboplastin Time 23.4 sec (22.0-30.0); Prothrombin Time 10.9 sec (10.0-12.5)
[2023-12-27] MEDS: SODIUM CHLORIDE 0.9% 1,000 ML in EMPTY BAG 1 BAG IV SCH ×2 (09:05→15:25)
[2023-12-27] MEDS: ASPIRIN 325 MG TAB PO STA (09:05)
[2023-12-27] MEDS: ATORVASTATIN 80 MG TAB PO STA (09:05)
[2023-12-27] MEDS: HEPARIN SODIUM 1,000 UN/ML (10ML VL) IV ONE (09:05)
[2023-12-27] MEDS: HEPARIN SOD,PORK IN 0.45% NACL 25,000 UNIT in 0.45% NACL 1 250ML.BAG IV SCH (09:06)
[2023-12-27] MEDS: hydrALAZINE HCL 25 MG TAB PO SCH (09:11)
[2023-12-27] MEDS: METOPROLOL SUCCINATE (ER) 50 MG TAB.ER.24H PO SCH ×2 (09:11→11:30)
[2023-12-27] MEDS: lisinopriL 20 MG TAB PO SCH (09:11)
[2023-12-27] MEDS: amLODIPine 10 MG TAB PO SCH (09:11)
[2023-12-27] MEDS: ATORVASTATIN 80 MG TAB PO SCH (09:12)
[2023-12-27] MEDS: CLOPIDOGREL 75 MG TAB PO SCH (09:12)
[2023-12-27] MEDS: ASPIRIN 81 MG PO SCH (09:12)
[2023-12-27] MEDS: EZETIMIBE 10 MG TAB PO SCH (09:13)
[2023-12-27] MEDS: FAMOTIDINE 20 MG TAB PO SCH (09:13)
[2023-12-27] MEDS: ISOSORBIDE MONONITRATE ER 60 MG TAB.ER.24H PO SCH (09:13)
[2023-12-27] MEDS: ALPRAZolam 0.25 MG TAB PO PRN (09:18)
[2023-12-27 09:23] LABS: Glucose,Whole Blood 145 mg/dL (70-110)
[2023-12-27] MEDS: GEMFIBROZIL 600 MG PO SCH (09:26)
--- NOTE | 2023-12-27 09:44 | P.CRDCN ---
History of Present Illness History of present illness: HISTORY OF PRESENT ILLNESS: This is a 73-year-old male with a past medical history significant for coronary artery disease with previous stenting, peripheral arterial disease with prior r evascularization, carotid atherosclerosis status post bilateral carotid endarterectomy and stenting of right internal carotid artery, hypertension, hyperlipidemia, diabetes, and COPD. Patient follows in the office with Dr. Arias. We have been asked to see the patient in consultation for chest pain. Patient examined at the bedside. Patient states yesterday evening around 11:00 he began to have chest discomfort. He states the pain was not very intense but he does report taking nitro 3 times with return of the pain each time. He denied any radiation of the pain but does report that his left arm felt "weird" for a few seconds. He denied having any shortness of breath or diaphoresis. He states the pain was gone by the time he got to the hospital and he has had no further episodes of chest pain since. The patient was noted to have elevated blood pressures in the 180s. The patient does report his blood pressures have been running high at home with a systolic in the 150s. He does report he has been compliant with his medications. However, the patient does report he has not been compliant with a cardiac diet including a low-sodium diet. He does report eating pizza multiple times. It is noted that the patient was hospitalized in October 2023. He underwent cardiac catheterization revealing severe two-vessel CAD involving the left circumflex and LAD and intermediate one-vessel CAD involving the RCA. He was evaluated by CT surgery and was felt not to be a good candidate for open heart and recommendations were made for PCI instead. Patient underwent stenting of the OM 2, proximal LAD, and mid LAD at that time. DIAGNOSTICS: - EKG reveals sinus mechanism with Q waves anteriorly. No signs of acute ischemia. - Chest xray negative for acute findings. - Laboratory data: WBC 4.5. Hemoglobin 12.8. Platelet count 142. Sodium 139. Potassium 4.0. BUN 18. Creatinine 0.93. Magnesium 1.8. Troponin 0.025. 0.060. 0.082. - Current home cardiac medication list has not been updated at the time of dictation - Most recent echocardiogram obtained in October 2023 revealing ejection fraction 45 to 50%, trace MR, trace TR - Cardiac catheterization history: October 2023 with stenting of the OM 2, proximal LAD, and mid LAD. REVIEW OF SYSTEMS: At the time of my exam: CONSTITUTIONAL: Denies fever or chills. HEENT: Denies blurred vision, vision changes, or eye pain. Denies hemoptysis CARDIOVASCULAR: Denies chest pain. Denies orthopnea. Denies PND. Denies palpitations RESPIRATORY: Denies shortness of breath. GASTROINTESTINAL: Denies abdominal pain. Denies nausea or vomiting. HEMATOLOGIC: Denies bleeding disorders. GENITOURINARY: Denies any blood in urine. SKIN: Denies pruitis. Denies rash. PHYSICAL EXAM: VITAL SIGNS: Reviewed. GENERAL: Well-developed in no acute distress. HEENT: Head is normocephalic. Pupils are equal, round. Sclerae anicteric. Mucous membranes of the mouth are moist. Neck supple. No JVD or thyromegaly LUNGS: Respirations even and unlabored. Lungs essentially clear to auscultation bilaterally. HEART: Regular rate and rhythm. S1 and S2 heard. ABDOMEN: Soft. Nondistended. Nontender. EXTREMITIES: Normal range of motion. No clubbing or cyanosis. Peripheral pulses intact. No lower extremity edema NEUROLOGIC: Awake and alert. Oriented x 3. ASSESSMENT: Non-STEMI Coronary artery disease with previous stenting, most recently to OM2, proximal LAD, and mid LAD, October 2023 Peripheral arterial disease with prior revascularization Carotid atherosclerosis with previous bilateral carotid endarterectomy and stenting of the right ICA Hypertension, uncontrolled Hyperlipidemia Diabetes COPD Obesity: BMI 33.9 Noncompliance with low-sodium/cardiac diet PLAN: Patient's troponin elevation may be secondary to uncontrolled blood pressures. However due to patient's significant cardiac history, cannot rule out progression of CAD. Recommend cardiac catheterization with Dr. Arias. Patient is agreeable. Begin IV heparin 2D echo has been ordered. Await results. Continue home cardiac medications Increase lisinopril to 20 mg twice a day for optimal blood pressure control. Continue to monitor blood pressure. Patient to undergo cardiac catheterization today with Dr. Arias Further recommendations pending patient course Nurse practitioner note has been reviewed by physician. Signing provider agrees with the documented findings, assessment, and plan of care documented by [employer]IV[employer] TECHNICIAN as a scribe. Past Medical History Past Medical History: Asthma, Coronary Artery Disease (CAD), Chest Pain / Angina, COPD, CVA/TIA, Diabetes Mellitus, Hyperlipidemia, Hypertension, Osteoarthritis (OA), Vascular Disorder Additional Past Medical History / Comment(s): stroke 2014-no residual effects, hx. pancreatitis several yrs. ago; severe PAD; bilateral internal carotid stenosis. 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 ago, smoked 1ppd for 20 yrs., hasn't drank for 13 yrs. Past Drug Use History: None Reported - Past Family History Father Family Medical History: Cancer Medications and Allergies Home Medications Medication Instructions Recorded Confirmed Type Aspirin 81 mg PO DAILY 05/17/17 10/11/23 History Atorvastatin [Lipitor] 80 mg PO DAILY 05/17/17 10/11/23 History Clopidogrel [Plavix] 75 mg PO DAILY 05/17/17 10/11/23 History Ipratropium/Albuterol Sulfate 1 puff INHALATION RT-QID PRN 05/17/17 10/11/23 History [Combivent Respimat Inhaler] Isosorbide Mononitrate ER [Imdur] 60 mg PO DAILY 05/17/17 10/11/23 History Multivitamin [Men's Multi-Vitamin] 1 tab PO DAILY 05/17/17 10/11/23 History Nitroglycerin Sl Tabs [Nitrostat] 0.4 mg SL Q5M PRN 05/17/17 10/11/23 History amLODIPine [Norvasc] 10 mg PO DAILY 05/17/17 10/11/23 History gemfibroziL [Lopid] 600 mg PO BID 05/17/17 10/11/23 History lisinopriL [Zestril] 20 mg PO DAILY 05/17/17 10/11/23 History Albuterol Nebulized [Ventolin 2.5 mg INHALATION RT-QID PRN 10/11/23 10/11/23 History Nebulized] Ascorbic Acid [Vitamin C] 1,500 mg PO DAILY 10/11/23 10/11/23 History Budesonide [Pulmicort] 0.5 mg INHALATION RT-BID 10/11/23 10/11/23 History Cholecalciferol [Vitamin D3 (125 125 mcg PO DAILY 10/11/23 10/11/23 History Mcg = 5000 Iu)] Ezetimibe [Zetia] 10 mg PO DAILY 10/11/23 10/11/23 History Fish Oil 1600mg 3 cap PO DAILY 10/11/23 10/11/23 History Montelukast [Singulair] 10 mg PO HS 10/11/23 10/11/23 History Pioglitazone [Actos] 15 mg PO DAILY 10/11/23 10/11/23 History Zinc Gluconate [Zinc] 50 mg PO DAILY 10/11/23 10/11/23 History metFORMIN HCL ER [Glucophage XR] 500 mg PO BID 10/11/23 10/11/23 History Famotidine [Pepcid] 20 mg PO DAILY #30 tablet 10/14/23 Rx Levothyroxine Sodium [Synthroid] 50 mcg PO DAILY@0630 #30 tab 10/14/23 Rx Metoprolol Succinate (ER) [Toprol 50 mg PO DAILY #30 tab 10/14/23 Rx XL] hydrALAZINE HCL [Apresoline] 25 mg PO TID #90 tab 10/14/23 Rx Allergies Allergy/AdvReac Type Severity Reaction Status Date / Time fenofibrate [From Tricor] AdvReac mild rash Verified 10/11/23 15:32 simvastatin [From Zocor] AdvReac mild rash Verified 10/11/23 15:32 Physical Exam Vitals: Vital Signs Temp Pulse Pulse Pulse Resp BP BP 12/27/23 07:58 63 12/27/23 07:00 97.8 F 75 18 182/77 12/27/23 05:55 97.9 F 75 16 183/86 12/27/23 05:14 80 18 167/86 12/27/23 04:08 84 18 172/88 12/27/23 02:34 78 12/27/23 02:20 97.8 F 81 20 172/97 Pulse Ox 12/27/23 07:58 94 L 12/27/23 07:00 93 L 12/27/23 05:55 93 L 12/27/23 05:14 90 L 12/27/23 04:08 94 L 12/27/23 02:34 12/27/23 02:20 94 L Intake and Output 12/26/23 12/27/23 12/27/23 22:59 06:59 14:59 Other: # Voids 2 Weight 113.398 kg Results 12/27/23 08:22 12/27/23 02:40 Cardiac Enzymes 12/27/23 12/27/23 12/27/23 Range/Units 02:40 02:40 05:56 AST 33 (17-59) U/L Troponin I 0.025 0.060 H* (0.000-0.034) ng/mL Coagulation 12/27/23 Range/Units 02:40 PT 10.5 (10.0-12.5) sec APTT 22.1 (22.0-30.0) sec CBC 12/27/23 Range/Units 02:40 WBC 5.0 (3.8-10.6) k/uL RBC 4.31 (4.30-5.90) m/uL Hgb 12.9 L (13.0-17.5) gm/dL Hct 39.9 (39.0-53.0) % Plt Count 152 (150-450) k/uL Comprehensive Metabolic Panel 12/27/23 Range/Units 02:40 Sodium 139 (137-145) mmol/L Potassium 4.0 (3.5-5.1) mmol/L Chloride 109 H (98-107) mmol/L Carbon Dioxide 23 (22-30) mmol/L BUN 18 (9-20) mg/dL Creatinine 0.93 (0.66-1.25) mg/dL Glucose 126 H (74-99) mg/dL Calcium 9.1 (8.4-10.2) mg/dL AST 33 (17-59) U/L ALT 27 (4-49) U/L Alkaline Phosphatase 99 (38-126) U/L Total Protein 6.3 (6.3-8.2) g/dL Albumin 4.1 (3.5-5.0) g/dL Current Medications Generic Name Dose Route Start Last Admin Trade Name Freq PRN Reason Stop Dose Admin Albuterol/Ipratropium 3 ml 12/27/23 07:43 12/27/23 07:58 Ipratropium-Albuterol 3 Ml Neb INHALATION 3 ml RT-QID PRN Administration Shortness Of Breath Amlodipine Besylate 10 mg 12/27/23 09:00 Amlodipine 10 Mg Tab PO DAILY [facility] Aspirin 81 mg 12/27/23 09:00 Aspirin 81 Mg PO DAILY [facility] Atorvastatin Calcium 80 mg 12/27/23 09:00 Atorvastatin 80 Mg Tab PO DAILY [facility] Budesonide 0.5 mg 12/27/23 08:00 12/27/23 07:58 Budesonide 0.5 Mg/2 Ml Nebu INHALATION 0.5 mg RT-BID JORDANA Administration Clopidogrel Bisulfate 75 mg 12/27/23 09:00 Clopidogrel 75 Mg Tab PO DAILY [facility] Ezetimibe 10 mg 12/27/23 09:00 Ezetimibe 10 Mg Tab PO DAILY [facility] Famotidine 20 mg 12/27/23 09:00 Famotidine 20 Mg Tab PO DAILY [facility] Heparin Sodium (Porcine) 5,000 unit 12/27/23 08:00 Heparin Sodium,Porcine 5,000 Unit/Ml 1 Ml Vial SQ Q8HR [facility] Hydralazine HCl 25 mg 12/27/23 09:00 Hydralazine Hcl 25 Mg Tab PO TID [facility] Sodium Chloride 1,000 mls @ 75 mls/hr 12/27/23 04:45 Saline 0.9% IV .[id number] [facility] Isosorbide Mononitrate 60 mg 12/27/23 09:00 Isosorbide Mononitrate Er 60 Mg Tab.Er.24h PO DAILY [facility] Levothyroxine Sodium 50 mcg 12/28/23 06:30 Levothyroxine 50 Mcg Tab PO DAILY@0630 [facility] Lisinopril 20 mg 12/27/23 09:00 Lisinopril 20 Mg Tab PO DAILY [facility] Metoprolol Succinate 50 mg 12/27/23 09:00 Metoprolol Succinate (Er) 50 Mg Tab.Er.24h PO DAILY [facility] Montelukast Sodium 10 mg 12/27/23 21:00 Montelukast 10 Mg Tab PO HS [facility] Naloxone HCl 0.2 mg 12/27/23 04:37 Naloxone 0.4 Mg/Ml 1 Ml Vial IV Q2M PRN Opioid Reversal Nitroglycerin 0.5 inch 12/27/23 02:30 12/27/23 02:44 Nitroglycerin Oint 1 Inch/Gm Packet TOPICAL 0.5 inch Q8HR JORDANA Administration Patient's Own ( 600 mg 12/27/23 09:00 Gemfibrozil 600 Mg PO Tab) BID JORDANA Ondansetron HCl 4 mg 12/27/23 04:37 Ondansetron 4 Mg/2 Ml Vial IVP Q8HR PRN Nausea And Vomiting Intake and Output 12/26/23 12/27/23 12/27/23 22:59 06:59 14:59 Other: # Voids 2 Weight 113.398 kg 12/27/23 02:40 12/27/23 02:40
[2023-12-27] MEDS: LORazepam 2 MG/ML INJ IV STA (10:04)
[2023-12-27] MEDS ORDERED: LIDOCAINE 1% INJ 10MG/ML (20 ML MDV) ONE (10:19)
[2023-12-27] MEDS ORDERED: VERAPAMIL 2.5 MG/ML 2 ML AMP ONE (10:19)
[2023-12-27] MEDS: HEPARIN SODIUM,PORCINE 5,000 UNIT/ML 1 ML VIAL SQ SCH (10:27)
[2023-12-27] MEDS ORDERED: DEXTROSE 50% SYRINGE 50 ML IVP PRN ×2 (11:07)
[2023-12-27] MEDS: MIDAZOLAM 2 MG/2 ML VIAL IVP ONE ×2 (11:16→11:35)
[2023-12-27] MEDS: IV FLUID CONTINUATION 1,000 ML IV ONE (11:16)
[2023-12-27] MEDS: LIDOCAINE 1% INJ 10MG/ML (20 ML MDV) SQ ONE (11:28)
[2023-12-27] MEDS: fentaNYL (PF) 50 MCG/ML 2 ML AMP IVP ONE (11:35)
--- NOTE | 2023-12-27 11:38 | P.HPIM ---
History of Present Illness H&P Date: 12/27/23 History of Presenting Illness: Patient is a pleasant 73-year-old male with a past medical history of CAD status post stenting, PAD status post aortofemoral bypass with repair of aneurysmal bypass, carotid stenosis status post left carotid stent, hypertension, hyperlipidemia, asthma/COPD, and type II [id number] diabetes mellitus. He presented to the emergency department overnight secondary to reports of chest pain/pressure. Reports while at home at rest he developed a sudden onset midsternal chest pressure, he reports taking 2 sublingual n itroglycerin tablets resulting in improvement of pain/pressure stating only a residual dull ache and called EMS for transport to the hospital. Patient denies having any headache, lightheadedness, dizziness, palpitations, shortness of breath, cough or congestion, fever or chills, abdominal pain, nausea, vomiting, or experiencing any numbness/tingling/weakness/increased swelling in his extremities. Patient does report chronic left lower extremity edema status post bypass surgery otherwise unchanged. He underwent evaluation in the emergency department. Vital signs upon arrival show blood pressure 172/97, heart rate 81, respiratory rate 20, temp 97.8 F, and SpO2 of 94% on room air. EKG was completed showing normal sinus rhythm at 84 bpm with no significant T wave or ST abnormalities showing no signs of acute ischemia upon personal review and interpretation. Chest x-ray was negative for acute cardiopulmonary process. Labs were completed and reviewed. CBC showing normocytic anemia with hemoglobin stable at 12.9. Coagulation profile normal findings. BMP revealing mild hyperchloremia with chloride of 109 otherwise normal findings. Blood glucose 126. Magnesium 1.8. Calcium 9.1. Initial troponin slightly elevated at 0.025 with repeat troponin of 0.060. Patient was started on heparin infusion and admitted under our services with consultation to cardiology. Review of systems: Pertinent positives and negatives as discussed in HPI, a complete review of systems was performed and all other systems are negative. Physical exam: Vital signs reviewed and stable. General: Nontoxic, no distress and appears stated age. Derm: Skin warm and dry, normal coloration for ethnicity. Head: Atraumatic, normocephalic and symmetric. Eyes: EOMs intact, no lid lag, and anicteric sclera Mouth: no lip lesions, mucus membranes moist Cardiovascular: regular rate and rhythm with normal S1S2, no murmur, positive posterior tibial pulses bilaterally, and cap refill < 2 seconds. Lungs: Respirations even, regular, and unlabored on room air. Lungs CTA bilaterally, no rhonchi, no rales, no wheezing, and no accessory muscle usage. Abdominal: soft, nontender to palpation, no guarding, no appreciable organomegaly Ext: ROM intact. No gross muscle atrophy, no edema, no contractures Neuro: Speech clear, face symmetrical and CN II-XII grossly intact with no noted focal neuro deficits Psych: Alert and oriented to person, place, time, and situation. Appropriate and pleasant affect. Assessment and Plan of Care: NSTEMI History of CAD status post stenting PAD s/p bypass Carotid stenosis status post stenting Hypertension Hyperlipidemia -Cardiology consulted, planning to take patient for cardiac cath later this morning -Continue low intensity heparin infusion with repeat PTT every 6 hours for goal therapeutic range of 44 to 79 seconds -Telemetry monitoring -Troponins elevated 0.025, 0.060, and 0.082. -Continue aspirin 81 mg daily, Plavix 75 mg daily, atorvastatin 80 mg daily, amlodipine 10 mg daily, Zetia 10 mg daily, gemfibrozil 600 mg twice daily, hydralazine 25 mg 3 times daily, isosorbide mononitrate 60 mg daily, lisinopril 20 mg twice daily, and Toprol XL 25 mg daily. -Echocardiogram Type 2 diabetes mellitus with hyperglycemia Hold metformin and place patient on glycemic protocol with NovoLog sliding scale to maintain tight glycemic control throughout hospitalization. Hypothyroidism Continue daily medication regimen with levothyroxine 50 mcg daily. Asthma/COPD not in acute exacerbation Continue Singulair 10 mg nightly, Pulmicort 0.5 mg twice daily, and Combivent 1 puff 4 times daily. Data and imaging reviewed: As stated above in HPI. The patient is admitted with an anticipated greater than 2 midnight stay for ev aluation of NSTEMI CODE STATUS:Full code DVT prophylaxis: Heparin Anticipated discharge date: Pending clinical course Anticipated discharge place: Home Patient was seen independently by Nurse Practitioner. This document was prepared using [employer] dictation software. Please allow for errors in blueprint reader while rare they do occur. Miguel Milan NP rendered care for this patient independently, reviewed the findings and plan as documented in the note above. I did not physically speak with or examine the patient on this date. Past Medical History Past Medical History: Asthma, Coronary Artery Disease (CAD), Chest Pain / Angina, COPD, CVA/TIA, Diabetes Mellitus, Hyperlipidemia, Hypertension, Osteoarthritis (OA), Vascular Disorder Additional Past Medical History / Comment(s): stroke 2014-no residual effects, hx. pancreatitis several yrs. ago; severe PAD; bilateral internal carotid stenosis. [place] this past easter, 6 stents total History of Any Multi-Drug Resistant Organisms: None Reported Past Surgical History: Cholecystectomy, Heart Catheterization, Orthopedic Surgery, Tonsillectomy Additional Past Surgical History / Comment(s): aorto femoral bypass, repair of aneurysm in bypass, ORIF left lower leg, left stent carotid Past Anesthesia/Blood Transfusion Reactions: No Reported Reaction Date of Last Stent Placement:: 2016 Past Psychological History: No Psychological Hx Reported Smoking Status: Former smoker Past Alcohol Use History: None Reported Additional Past Alcohol Use History / Comment(s): quit smoking 25 yrs. ago, smoked 1ppd for 20 yrs., hasn't drank for 13 yrs. Past Drug Use History: None Reported - Past Family History Father Family Medical History: Cancer Medications and Allergies Home Medications Medication Instructions Recorded Confirmed Type Aspirin 81 mg PO DAILY 05/17/17 12/27/23 History Atorvastatin [Lipitor] 80 mg PO DAILY 05/17/17 12/27/23 History Clopidogrel [Plavix] 75 mg PO DAILY 05/17/17 12/27/23 History Ipratropium/Albuterol Sulfate 1 puff INHALATION RT-QID PRN 05/17/17 12/27/23 History [Combivent Respimat Inhaler] Isosorbide Mononitrate ER [Imdur] 60 mg PO DAILY 05/17/17 12/27/23 History Multivitamin [Men's Multi-Vitamin] 1 tab PO HS 05/17/17 12/27/23 History Nitroglycerin Sl Tabs [Nitrostat] 0.4 mg SL Q5M PRN 05/17/17 12/27/23 History amLODIPine [Norvasc] 10 mg PO DAILY 05/17/17 12/27/23 History gemfibroziL [Lopid] 600 mg PO BID 05/17/17 12/27/23 History lisinopriL [Zestril] 20 mg PO DAILY 05/17/17 12/27/23 History Albuterol Nebulized [Ventolin 2.5 mg INHALATION RT-QID PRN 10/11/23 12/27/23 History Nebulized] Ascorbic Acid [Vitamin C] 1,500 mg PO HS 10/11/23 12/27/23 History Budesonide [Pulmicort] 0.5 mg INHALATION RT-BID 10/11/23 12/27/23 History Cholecalciferol [Vitamin D3 (125 125 mcg PO HS 10/11/23 12/27/23 History Mcg = 5000 Iu)] Ezetimibe [Zetia] 10 mg PO DAILY 10/11/23 12/27/23 History Fish Oil 1600mg 3 cap PO HS 10/11/23 12/27/23 History Montelukast [Singulair] 10 mg PO HS 10/11/23 12/27/23 History Zinc Gluconate [Zinc] 50 mg PO HS 10/11/23 12/27/23 History metFORMIN HCL ER [Glucophage XR] 500 mg PO BID 10/11/23 12/27/23 History Famotidine [Pepcid] 20 mg PO DAILY #30 tablet 10/14/23 12/27/23 Rx Levothyroxine Sodium [Synthroid] 50 mcg PO DAILY@0630 #30 tab 10/14/23 12/27/23 Rx hydrALAZINE HCL [Apresoline] 25 mg PO TID #90 tab 10/14/23 12/27/23 Rx Metoprolol Succinate (ER) [Toprol 25 mg PO DAILY 12/27/23 12/27/23 History Xl] Allergies Allergy/AdvReac Type Severity Reaction Status Date / Time fenofibrate [From Tricor] AdvReac mild rash Verified 12/27/23 09:51 simvastatin [From Zocor] AdvReac mild rash Verified 12/27/23 09:51 Physical Exam Vitals: Vital Signs Temp Pulse Pulse Pulse Resp BP BP 12/27/23 07:00 97.8 F 75 18 182/77 12/27/23 05:55 97.9 F 75 16 183/86 12/27/23 05:14 80 18 167/86 12/27/23 04:08 84 18 172/88 12/27/23 02:34 78 12/27/23 02:20 97.8 F 81 20 172/97 Pulse Ox 12/27/23 07:00 93 L 12/27/23 05:55 93 L 12/27/23 05:14 90 L 12/27/23 04:08 94 L 12/27/23 02:34 12/27/23 02:20 94 L Intake and Output 12/26/23 12/27/23 12/27/23 22:59 06:59 14:59 Other: # Voids 2 Weight 113.398 kg Results CBC & Chem 7: 12/27/23 08:22 12/27/23 02:40 Labs: Abnormal Lab Results - Last 24 Hours (Table) 12/27/23 12/27/23 Range/Units 02:40 02:40 Hgb 12.9 L (13.0-17.5) gm/dL Chloride 109 H (98-107) mmol/L Glucose 126 H (74-99) mg/dL Thrombosis Risk Factor Assmnt - Choose All That Apply Any of the Below Risk Factors Present?: Yes Each Factor Represents 1 point: Obesity (BMI >25) Other Risk Factors: Yes Each Risk Factor Represents 2 Points: Age 61-74 years Other congenital or acquired thrombophilia - If yes, enter type in comment: No Thrombosis Risk Factor Assessment Total Risk Factor Score: 3 Thrombosis Risk Factor Assessment Level: Moderate Risk
[2023-12-27] MEDS ORDERED: fentaNYL (PF) 50 MCG/ML 2 ML AMP ONE (11:39)
[2023-12-27] MEDS ORDERED: HEPARIN SODIUM 1,000 UN/ML (10ML VL) ONE (11:56)
[2023-12-27] MEDS: HEPARIN SODIUM 1,000 UN/ML (10ML VL) IVP ONE (11:58)
[2023-12-27] MEDS ORDERED: TICAGRELOR 90 MG TAB ONE (12:10)
[2023-12-27] MEDS ORDERED: MORPHINE SULFATE 4 MG/ML SYRINGE ONE (12:10)
[2023-12-27] MEDS: TICAGRELOR 90 MG TAB PO ONE (12:10)
[2023-12-27] MEDS: MORPHINE SULFATE 4 MG/ML SYRINGE IVP ONE (12:12)
[2023-12-27] MEDS ORDERED: ENALAPRILAT 1.25 MG/ML 1 ML VIAL ONE (12:13)
[2023-12-27] MEDS: ENALAPRILAT 1.25 MG/ML 1 ML VIAL IVP ONE (12:14)
[2023-12-27] MEDS: HYDROmorphone 0.5 MG/0.5 ML SYRINGE IVP ONE ×2 (12:16→12:27)
[2023-12-27] MEDS ORDERED: niCARdipine 25 MG/10 ML VIAL ONE (12:21)
[2023-12-27] MEDS: NITROGLYCERIN SL TABS 0.4 MG TAB SUBLINGUAL ONE (12:32)
[2023-12-27] MEDS ORDERED: NITROGLYCERIN SL TABS 0.4 MG TAB SUBLINGUAL ONE (12:32)
[2023-12-27] MEDS: NITROGLYCERIN 1000MCG/10ML SYRINGE INTRACORON ONE (12:33)
[2023-12-27] MEDS: niCARdipine Syringe (1,000 mcg/10 mL) INTRACORON ONE (12:34)
[2023-12-27] MEDS ORDERED: ZOLPIDEM 5 MG TAB PO PRN (12:40)
[2023-12-27] MEDS ORDERED: RX INFO: IV CONTRAST WAS GIVEN 1 EACH MISC MISCELLANE PRN (12:40)
[2023-12-27] MEDS ORDERED: ATROPINE SULFATE 0.1 MG/ML 10ML SYRINGE IV PRN (12:40)
[2023-12-27] MEDS ORDERED: MAG HYDROX/AL HYDROX/SIMETH 30 ML CUP PO PRN (12:40)
[2023-12-27] MEDS: IOPAMIDOL-370 200ML BTL INJ ONE ×2 (12:42)
[2023-12-27] MEDS: PHENYLEPHRINE-0.9% NACL SYG 1,000 MCG/10 ML SYRINGE IVP ONE (12:44)
--- NOTE | 2023-12-27 12:50 | P.PCN ---
Date of Procedure: 12/27/23 Operative Findings: CARDIAC CATHETERIZATION AND PERCUTANEOUS CORONARY INTERVENTION PERFORMING PHYSICIAN: Pako Arias MD, [facility] PROCEDURE PERFORMED: 1. Selective right and left coronary angiogram 2. Successful stenting of mid LCx using 4.0 x 48 mm Xience SARA with an excellent angiographic results 3. Adjunctive use of intravascular ultrasound and lithotripsy balloon 4. Ultrasound-guided access of the right brachial artery INDICATION: Acute non-ST ovation myocardial infarction COMPLICATION: None APPROACH: Right brachial artery LEVEL OF SEDATION: Moderate with the sedation time off 70 minutes PROCEDURE DESCRIPTION: After obtaining informed consent the patient was brought to the cardiac Legal Coordinator. The patient has no right radial pulse. The patient does not have access from both femoral artery because of severe lower extremities peripheral arterial disease with prior revascularization. The patient does have very faint left radial pulse and attempting accessing the left radial artery was unsuccessful. At that point I had to access the right brachial artery using micropuncture technique under ultrasound guidance a micropuncture wire passed easily then I placed initially a 5 Romanian 11 cm sheath LAD selective right and left coronary angiogram using JR4 and JL 4 catheters with after that I decided to intervene on the left circumflex coronary artery with anticoagulation was initiated using heparin with continuous ACT monitoring and subsequently I did exchange my 11 cm 5 Romanian sheath into 11 cm 6 Romanian sheath using 035 wire. Subsequently I did engage the left main using an EBU 3.5 guiding catheter. I did wired the left circumflex using a run-through wire. Intravascular ultrasound was performed and showed a diameter around 4 mm with a stented segment. I did initially predilatation using 3.5 mm balloon but the balloon would not open fully. I attempted doing balloon angioplasty again using score flex balloon with the same thing happened. At that point I decided to do lithotripsy balloon and that was 3.5 mm lithotripsy balloon. After that I deployed 4.0 x 48 mm stent where the stent was positioned under fluoroscopy guidance and deployed under 12 gordy for 20 seconds with postdilatation was performed using 4 mm noncompliant balloon with a final angiogram showed good angiographic results with reduction of stenosis from about 80% to 10%. LAINEY-3 flow was achieved. The procedure was completed with no complication SELECTIVE CORONARY ANGIOGRAM: The right coronary artery: Large-caliber vessel and a dominant vessel with intermediate to severe disease involving the distal RCA appears to be unchanged compared to before Left main: Calcified with mild disease only The left circumflex: Large caliber vessel nondominant vessel. The LCx is stented distally with an area proximal to the stented segment appears to be hazy and appears to be severely diseased as well. The left anterior descending artery: The LAD stent appeared to be patent CONCLUSION: Patent stent in the left anterior descending artery Severe disease involving the mid left circumflex just proximal to the stented segment. I did perform successful PCI of the left circumflex Intermediate to severe disease involving the RCA distally appears to be unchanged compared to before POSTPROCEDURE MANAGEMENT: 1. Dual antiplatelet therapy using aspirin and Brilinta for 12 month 2. Aggressive cholesterol control 3. Follow-up with the patient
--- NOTE | 2023-12-27 13:07 | CA ---
Transthoracic Echo Report Name: Steve Lea Age: 73 Gender: M : 1950 Exam Date: 12/27/2023 08:51 Exam Location: [facility] Ht (in): 72 Wt (lb): 250 Ordering Physician: Verónica Kiser MD Attending/Referring Phys: Polysomnographic Tech Isa Christianson RDCS Procedure CPT: Indications: Chest Pain Cardiac Hx: Technical Quality: Technically difficult study Contrast 1: Definity Total Dose (mL): 2 Contrast 2: Total Dose (mL): MEASUREMENTS (Male / Female) Normal Values 2D ECHO LV Diastolic Diameter PLAX 5.5 cm 4.2 - 5.9 / 3.9 - 5.3 cm LV Systolic Diameter PLAX 3.5 cm IVS Diastolic Thickness 1.7 cm 0.6 - 1.0 / 0.6 - 0.9 cm LVPW Diastolic Thickness 1.5 cm 0.6 - 1.0 / 0.6 - 0.9 cm LV Relative Wall Thickness 0.6 FINDINGS Left Ventricle Limited study. Moderately increased left ventricular wall thickness. Left ventricular cavity size normal. Normal left ventricular systolic function with no obvious regional wall motion abnormalities. Left ventricular ejection fraction is estimated at 55-60 %. Right Ventricle Right Atrium Left Atrium Mitral Valve Aortic Valve Tricuspid Valve Pulmonic Valve Pericardium No pericardial effusion. Aorta CONCLUSIONS Normal LV systolic function No pericardial effusion Previewed by: Dr. Pako Arias MD (Electronically Signed) Final Date: 27 December 2023 13:06
[2023-12-27] MEDS: MORPHINE SULFATE 4 MG/ML SYRINGE IVP PRN (13:47)
[2023-12-27] MEDS: hydroCHLOROthiazide 25 MG TAB PO SCH (14:18)
[2023-12-27] MEDS: INSULIN ASPART (NovoLOG) 100 UNIT/ML VIAL SQ SCH (15:22)
[2023-12-27] MEDS: MORPHINE SULFATE 4 MG/ML SYRINGE ONE (15:26)
[2023-12-27 17:02] LABS: Glucose,Whole Blood 129 mg/dL (70-110)
[2023-12-27 20:45] VITALS: RESP 16
[2023-12-27] MEDS: MONTELUKAST 10 MG TAB PO SCH (21:13)
[2023-12-27 21:14] LABS: Glucose,Whole Blood 133 mg/dL (70-110)
[2023-12-28 05:37] LABS: Glucose,Whole Blood 131 mg/dL (70-110)
[2023-12-28] MEDS: LEVOTHYROXINE 50 MCG TAB PO SCH (06:19)
[2023-12-28] MEDS ORDERED: HEPARIN SODIUM,PORCINE 10,000 UNIT in SODIUM CHLORIDE 0.9% 1,000 ML IRRIGATION PRN (07:00)
[2023-12-28] MEDS ORDERED: HEPARIN SODIUM,PORCINE (1 ML) 2,500 UNIT in SODIUM CHLORIDE 0.9% 250 ML IRRIGATION PRN (07:00)
[2023-12-28 07:40] LABS: ALT 32 U/L (4-49); AST 107 U/L (17-59); African American GFR (CKD) >90 (>60 ml/min/1.73 sqM); Albumin 3.6 g/dL (3.5-5.0); Albumin/Globulin Ratio 1.7; Alkaline Phosphatase 96 U/L (38-126); Anion Gap 5 mmol/L; Blood Urea Nitrogen 14 mg/dL (9-20); Calcium 8.8 mg/dL (8.4-10.2); Carbon Dioxide 27 mmol/L (22-30); Chloride 104 mmol/L (98-107); Globulin 2.1 g/dL; Glucose 134 mg/dL (74-99); Non-African American GFR(CKD) 87 (>60 ml/min/1.73 sqM); Potassium 4.1 mmol/L (3.5-5.1); Sodium 136 mmol/L (137-145); Total Bilirubin 0.7 mg/dL (0.2-1.3); Total Protein 5.7 g/dL (6.3-8.2)
[2023-12-28 07:42] VITALS: BP 155/83; TEMP 99.1
[2023-12-28 07:57] LABS: INR 1.1 (<1.2); Prothrombin Time 11.5 sec (10.0-12.5)
[2023-12-28] MEDS: TICAGRELOR 90 MG TAB PO SCH (08:08)
[2023-12-28 08:19] VITALS: PULSE 70
[2023-12-28] MEDS: RANOLAZINE 500 MG TAB.ER.12H PO SCH (09:16)
[2023-12-28 10:09] LABS: Basophils # (A) 0.03 X 10*3/uL (0.00-0.10); Basophils % (A) 0.4 %; Eosinophils # (A) 0.14 X 10*3/uL (0.04-0.35); Eosinophils % (A) 1.8 %; HCT 38.7 % (39.6-50.0); HGB 12.4 g/dL (13.0-17.0); Lymphocytes # (A) 0.71 X 10*3/uL (0.90-5.00); Lymphocytes % (A) 8.9 %; MCH 29.7 pg (27.0-32.0); MCV 92.6 FL (80.0-97.0); Mean Platelet Volume 11.7 FL (9.5-12.2); Monocytes # (A) 0.77 X 10*3/uL (0.20-1.00); Monocytes % (A) 9.6 %; NRBC Per 100 WBC 0 X 10*3/uL (0.00-0.01); Neutrophils # (A) 6.32 X 10*3/uL (1.80-7.70); Platelet Count 162 X 10*3/uL (140-440); RBC 4.18 X 10*6/uL (4.40-5.60); RDW 14.9 % (11.5-14.5); WBC 7.99 X 10*3/uL (4.50-10.00)
--- NOTE | 2023-12-28 10:23 | P.DS ---
Providers Date of admission: 12/27/23 19:29 Expected date of discharge: 12/28/23 Attending physician: Verónica Kiser MD Consults: 12/27/23 04:27 Consult Physician Urgent Consulting Provider: Pako Arias Consult Reason/Comments: chest pain Do you want consulting provider notified?: Yes 12/27/23 12:40 Consult Physician Routine Consulting Provider: [facility] Consult Reason/Comments: Post Interventional patient Do you want consulting provider notified?: Already Contacted Primary care physician: Jarred Tran MD Hospital Course: Discharge Diagnosis: NSTEMI. Patient underwent successful stenting of left circumflex on 12/27/2023. Plavix was discontinued and patient placed on Brilinta 90 mg twice daily, Ranexa 500 mg every 12 hours, and hydrochlorothiazide 25 mg daily in addition to current cardiac medication regimen with aspirin 81 mg daily, lisinopril 20 mg daily, isosorbide mononitrate 60 mg daily, amlodipine 10 mg daily, gemfibrozil 600 mg twice daily, atorvastatin 80 mg daily, hydralazine 25 mg 3 times daily, metoprolol succinate 25 mg daily, and Zetia 10 mg daily. Patient cleared from cardiac perspective recommending follow-up outpatient with nanny babysitter in 1 week. History of CAD status post stenting PAD s/p bypass Carotid stenosis status post stenting Hypertension Hyperlipidemia Type 2 diabetes mellitus with hyperglycemia Hypothyroidism. Continue daily medication regimen with levothyroxine 50 mcg daily. Asthma/COPD not in acute exacerbation. Continue Singulair 10 mg nightly, Pulmicort 0.5 mg twice daily, and Combivent 1 puff 4 times daily. Hospital Course: Patient is a pleasant 73-year-old male with a past medical history of CAD status post stenting, PAD status post aortofemoral bypass with repair of aneurysmal bypass, carotid stenosis status post left carotid stent, hypertension, hyperlipidemia, asthma/COPD, and type II [id number] diabetes mellitus. He presented to the emergency department overnight secondary to reports of chest pain/pressure. Reports while at home at rest he developed a sudden onset midsternal chest pressure, he reports taking 2 sublingual nitroglycerin tablets resulting in improvement of pain/pressure stating only a residual dull ache and called EMS for transport to the hospital. Patient denies having any headache, lightheadedness, dizziness, palpitations, shortness of breath, cough or congestion, fever or chills, abdominal pain, nausea, vomiting, or experiencing any numbness/tingling/weakness/increased swelling in his extremities. Patient does report chronic left lower extremity edema status post bypass surgery otherwise unchanged. He underwent evaluation in the emergency department. Vital signs upon arrival show blood pressure 172/97, heart rate 81, respiratory rate 20, temp 97.8 F, and SpO2 of 94% on room air. EKG was completed showing normal sinus rhythm at 84 bpm with no significant T wave or ST abnormalities showing no signs of acute ischemia upon personal review and interpretation. Chest x-ray was negative for acute cardiopulmonary process. Labs were completed and reviewed. CBC showing normocytic anemia with hemoglobin stable at 12.9. Coagulation profile normal findings. BMP revealing mild hyperchloremia with chloride of 109 otherwise normal findings. Blood glucose 126. Magnesium 1.8. Calcium 9.1. Initial troponin slightly elevated at 0.025 with repeat troponin of 0.060. Patient was started on heparin infusion and admitted under our services with consultation to cardiology. Patient was taken for cardiac catheterization and underwent successful stenting of left circumflex on 12/27/2023. Plavix was discontinued and patient placed on Brilinta 90 mg twice daily, Ranexa 500 mg every 12 hours, and hydrochlorothiazide 25 mg daily in addition to current cardiac medication regimen with aspirin 81 mg daily, lisinopril 20 mg daily, isosorbide mononitrate 60 mg daily, amlodipine 10 mg daily, gemfibrozil 600 mg twice daily, atorvastatin 80 mg daily, hydralazine 25 mg 3 times daily, metoprolol succinate 25 mg daily, and Zetia 10 mg daily. Patient cleared from cardiac perspective recommending follow-up outpatient with nanny babysitter in 1 week. Patient medically clear for discharge at this time. He denies having any questions, concerns, complaints, or discharge needs. Physical exam: Vital signs reviewed and stable. General: Nontoxic, no distress and appears stated age. Derm: Skin warm and dry, normal coloration for ethnicity. Head: Atraumatic, normocephalic and symmetric. Eyes: EOMs intact, no lid lag, and anicteric sclera Mouth: no lip lesions, mucus membranes moist Cardiovascular: regular rate and rhythm with normal S1S2, no murmur, positive posterior tibial pulses bilaterally, and cap refill < 2 seconds. Lungs: Respirations even, regular, and unlabored on room air. Lungs CTA bilate rally, no rhonchi, no rales, no wheezing, and no accessory muscle usage. Abdominal: soft, nontender to palpation, no guarding, no appreciable organomegaly Ext: ROM intact. No gross muscle atrophy, no edema, no contractures Neuro: Speech clear, face symmetrical and CN II-XII grossly intact with no noted focal neuro deficits Psych: Alert and oriented to person, place, time, and situation. Appropriate and pleasant affect. A total of 34 minutes of time were spent preparing this complex discharge summary. Pt was discharged on 12/28/23 at 9:58 AM. Patient was seen independently by Nurse Practitioner. This document was prepared using [employer] dictation software. Please allow for errors in financial operations clerk while rare they do occur. Patient Condition at Discharge: Stable Plan - Discharge Summary New Discharge Prescriptions: New Ticagrelor [Brilinta] 90 mg PO BID 30 Days #60 tab Ranolazine [Ranexa] 500 mg PO Q12HR 30 Days #60 tab hydroCHLOROthiazide [Hydrodiuril] 25 mg PO DAILY 30 Days #30 tab Continue Nitroglycerin Sl Tabs [Nitrostat] 0.4 mg SL Q5M PRN PRN Reason: Chest Pain Aspirin 81 mg PO DAILY lisinopriL [Zestril] 20 mg PO DAILY Isosorbide Mononitrate ER [Imdur] 60 mg PO DAILY amLODIPine [Norvasc] 10 mg PO DAILY Ipratropium/Albuterol Sulfate [Combivent Respimat Inhaler] 1 puff INHALATION RT-QID PRN PRN Reason: Shortness Of Breath gemfibroziL [Lopid] 600 mg PO BID Atorvastatin [Lipitor] 80 mg PO DAILY Multivitamin [Men's Multi-Vitamin] 1 tab PO HS Budesonide [Pulmicort] 0.5 mg INHALATION RT-BID Ascorbic Acid [Vitamin C] 1,500 mg PO HS Montelukast [Singulair] 10 mg PO HS hydrALAZINE HCL [Apresoline] 25 mg PO TID #90 tab Levothyroxine Sodium [Synthroid] 50 mcg PO DAILY@0630 #30 tab Metoprolol Succinate (ER) [Toprol XL] 25 mg PO DAILY Ezetimibe [Zetia] 10 mg PO DAILY Albuterol Nebulized [Ventolin Nebulized] 2.5 mg INHALATION RT-QID PRN PRN Reason: Shortness Of Breath Fish Oil 1600mg 3 cap PO HS Cholecalciferol [Vitamin D3 (125 Mcg = 5000 Iu)] 125 mcg PO HS metFORMIN HCL ER [Glucophage XR] 500 mg PO BID Zinc Gluconate [Zinc] 50 mg PO HS Famotidine [Pepcid] 20 mg PO DAILY #30 tablet Discontinued Clopidogrel [Plavix] 75 mg PO DAILY Discharge Medication List Aspirin 81 mg PO DAILY 05/17/17 [History] Atorvastatin [Lipitor] 80 mg PO DAILY 05/17/17 [History] Ipratropium/Albuterol Sulfate [Combivent Respimat Inhaler] 1 puff INHALATION RT- QID PRN 05/17/17 [History] Isosorbide Mononitrate ER [Imdur] 60 mg PO DAILY 05/17/17 [History] Multivitamin [Men's Multi-Vitamin] 1 tab PO HS 05/17/17 [History] Nitroglycerin Sl Tabs [Nitrostat] 0.4 mg SL Q5M PRN 05/17/17 [History] amLODIPine [Norvasc] 10 mg PO DAILY 05/17/17 [History] gemfibroziL [Lopid] 600 mg PO BID 05/17/17 [History] lisinopriL [Zestril] 20 mg PO DAILY 05/17/17 [History] Albuterol Nebulized [Ventolin Nebulized] 2.5 mg INHALATION RT-QID PRN 10/11/23 [History] Ascorbic Acid [Vitamin C] 1,500 mg PO HS 10/11/23 [History] Budesonide [Pulmicort] 0.5 mg INHALATION RT-BID 10/11/23 [History] Cholecalciferol [Vitamin D3 (125 Mcg = 5000 Iu)] 125 mcg PO HS 10/11/23 [History] Ezetimibe [Zetia] 10 mg PO DAILY 10/11/23 [History] Fish Oil 1600mg 3 cap PO HS 10/11/23 [History] Montelukast [Singulair] 10 mg PO HS 10/11/23 [History] Zinc Gluconate [Zinc] 50 mg PO HS 10/11/23 [History] metFORMIN HCL ER [Glucophage XR] 500 mg PO BID 10/11/23 [History] Famotidine [Pepcid] 20 mg PO DAILY #30 tablet 10/14/23 [Rx] Levothyroxine Sodium [Synthroid] 50 mcg PO DAILY@0630 #30 tab 10/14/23 [Rx] hydrALAZINE HCL [Apresoline] 25 mg PO TID #90 tab 10/14/23 [Rx] Metoprolol Succinate (ER) [Toprol XL] 25 mg PO DAILY 12/27/23 [History] Ranolazine [Ranexa] 500 mg PO Q12HR 30 Days #60 tab 12/28/23 [Rx] Ticagrelor [Brilinta] 90 mg PO BID 30 Days #60 tab 12/28/23 [Rx] hydroCHLOROthiazide [Hydrodiuril] 25 mg PO DAILY 30 Days #30 tab 12/28/23 [Rx] Follow up Appointment(s)/Referral(s): Jarred Tran MD [Primary Care Provider] - 1-2 days Pako Arias MD [STAFF PHYSICIAN] - 1 Week (Office will call with appointment time and date.) Patient Instructions/Handouts: Heart Catheterization (DC) Activity/Diet/Wound Care/Special Instructions: Discharge Instructions After Cardiac Catheterization with Stent Placement: Do not stop taking these medicines without talking to your doctor. -Take all other medicines as directed by your doctor. Do not take any extra aspirin or ibuprofen. They can increase your risk of bleeding. Many [id number] drugs contain aspirin. If you are unsure about what the drug contains, check with your pharmacist before taking it. -For mild discomfort, you may take plain Tylenol (acetaminophen). Follow dose directions, but do not take more than 4,000 mg of acetaminophen in 24 hours. Contact your doctor right away or go to the nearest hospital Emergency Room if you have: -Severe angina or chest pain. (This may be a sign of a problem with your stent.) -Excessive bruising, blood in urine/stool or black tarry stools. Healthy LifeStyle It is important to keep a heart healthy lifestyle. This can improve your long- term health and decrease your risk for heart attacks. -Managing your blood cholesterol, blood pressure, weight, and stress. -The importance of regular exercise. -Heart Healthy Diet: Include more plants in your diet. Eat lots of fresh vegetables and fresh fruits. Eat good fats: plant based oils, avocado, nuts, beans, legumes. Eat more seafood. Limit Meat. Switch to whole grains. -Avoid fried foods and animal fats and processed meats Follow up with your PCP and [facility] Thank you for allowing us to participate in your care, it was truly a pleasure having you for our patient!!! Discharge Disposition: HOME SELF-CARE
--- NOTE | 2023-12-28 11:46 | P.PN ---
Subjective HISTORY OF PRESENT ILLNESS: This is a 73-year-old male with a past medical history significant for coronary artery disease with previous stenting, peripheral arterial disease with prior revascularization, carotid atherosclerosis status post bilateral carotid endarterectomy and stenting of right internal carotid artery, hypertension, hyperlipidemia, diabetes, and COPD. Patient follows in the office with Dr. Arias. We have been asked to see the patient in consultation for chest pain. Patient examined at the bedside. Patient states yesterday evening around 11:00 he began to have chest discomfort. He states the pain was not very intense but he does report taking nitro 3 times with return of the pain each time. He denied any radiation of the pain but does report that his left arm felt "weird" for a few seconds. He denied having any shortness of breath or diaphoresis. He states the pain was gone by the time he got to the hospital and he has had no further episodes of chest pain since. The patient was noted to have elevated blood p ressures in the 180s. The patient does report his blood pressures have been running high at home with a systolic in the 150s. He does report he has been compliant with his medications. However, the patient does report he has not been compliant with a cardiac diet including a low-sodium diet. He does report eating pizza multiple times. It is noted that the patient was hospitalized in October 2023. He underwent cardiac catheterization revealing severe two-vessel CAD involving the left circumflex and LAD and intermediate one-vessel CAD involving the RCA. He was evaluated by CT surgery and was felt not to be a good candidate for open heart and recommendations were made for PCI instead. Patient underwent stenting of the OM 2, proximal LAD, and mid LAD at that time. DIAGNOSTICS: - EKG reveals sinus mechanism with Q waves anteriorly. No signs of acute ischemia. - Chest xray negative for acute findings. - Laboratory data: WBC 4.5. Hemoglobin 12.8. Platelet count 142. Sodium 139. Potassium 4.0. BUN 18. Creatinine 0.93. Magnesium 1.8. Troponin 0.025. 0.060. 0.082. - Current home cardiac medication list has not been updated at the time of dictation - Most recent echocardiogram obtained in October 2023 revealing ejection fraction 45 to 50%, trace MR, trace TR - Cardiac catheterization history: October 2023 with stenting of the OM 2, proximal LAD, and mid LAD. 12/28/2023 Patient examined this morning at bedside. Patient is status post cardiac catheterization with stenting of the mid circumflex yesterday with Dr. Arias. Right brachial site with pulse present. Patient reports very mild chest discomfort this morning. He denies shortness of breath. Vital signs are stable . PHYSICAL EXAM: VITAL SIGNS: Reviewed. GENERAL: Well-developed in no acute distress. HEENT: Head is normocephalic. Pupils are equal, round. Sclerae anicteric. Mucous membranes of the mouth are moist. Neck supple. No JVD or thyromegaly LUNGS: Respirations even and unlabored. Lungs essentially clear to auscultation bilaterally. HEART: Regular rate and rhythm. S1 and S2 heard. ABDOMEN: Soft. Nondistended. Nontender. EXTREMITIES: Normal range of motion. No clubbing or cyanosis. Peripheral pul ses intact. No lower extremity edema NEUROLOGIC: Awake and alert. Oriented x 3. ASSESSMENT: Non-STEMI status post cardiac catheterization with stenting of the mid circumflex Coronary artery disease with previous stenting, most recently to OM2, proximal LAD, and mid LAD, October 2023 Peripheral arterial disease with prior revascularization Carotid atherosclerosis with previous bilateral carotid endarterectomy and stenting of the right ICA Hypertension, uncontrolled Hyperlipidemia Diabetes COPD Obesity: BMI 33.9 Noncompliance with low-sodium/cardiac diet PLAN: Continue current cardiac medications Continue dual antiplatelet therapy with aspirin and Brilinta for 12 months Continue high intensity statin. LDL goal less than 70. Add Ranexa 500 mg twice a day Patient is stable for discharge home today from a cardiac standpoint He is to follow-up in the office with Dr. Arias Nurse practitioner note has been reviewed by physician. Signing provider agrees with the documented findings, assessment, and plan of care documented by MULTIMEDIA PRODUCTION ASSISTANT as a scribe. Objective - Vital Signs Vital signs: Vital Signs Temp 99.1 F 12/28/23 07:00 Pulse 70 12/28/23 08:19 Resp 16 12/28/23 07:00 BP 155/83 12/28/23 07:00 Pulse Ox 94 L 12/28/23 07:00 FiO2 Intake & Output 12/27/23 12/28/23 12/28/23 18:59 06:59 18:59 Intake Total 318.998 Balance 318.998 Intake: IV 300 Intake, IV Titration 18.998 Amount Heparin Sod,Pork in 0.45% 18.998 NaCl 25,000 unit In 0.45 % NaCl 1 250ml.bag @ 8. 818 UNITS/KG/HR 9.999 mls /hr IV .Q24H [facility] Rx#: [id number] Other: # Voids 2 - Labs CBC & Chem 7: 12/28/23 06:46 12/28/23 06:46 Labs: Abnormal Lab Results - Last 24 Hours (Table) 12/27/23 12/27/23 12/28/23 Range/Units 17:01 21:13 05:34 RBC (4.40-5.60) X 10*6/uL Hgb (13.0-17.0) g/dL Hct (39.6-50.0) % RDW (11.5-14.5) % Lymphocytes # (0.90-5.00) X 10*3/uL Sodium (137-145) mmol/L Glucose (74-99) mg/dL POC Glucose (mg/dL) 129 H 133 H 131 H (70-110) mg/dL Hemoglobin A1c (<=6.0) % AST (17-59) U/L Total Protein (6.3-8.2) g/dL 12/28/23 12/28/23 12/28/23 Range/Units 06:46 06:46 06:46 RBC 4.18 L (4.40-5.60) X 10*6/uL Hgb 12.4 L (13.0-17.0) g/dL Hct 38.7 L (39.6-50.0) % RDW 14.9 H (11.5-14.5) % Lymphocytes # 0.71 L (0.90-5.00) X 10*3/uL Sodium 136 L (137-145) mmol/L Glucose 134 H (74-99) mg/dL POC Glucose (mg/dL) (70-110) mg/dL Hemoglobin A1c 6.3 H (<=6.0) % AST 107 H (17-59) U/L Total Protein 5.7 L (6.3-8.2) g/dL
== END 2023-12-28 10:38 | disposition home or self-care (01) | DRG 322 ==
LOC: EC 02:16 → 6NMEDSUR 04:39 → OBSVTOIN 19:29
PROVIDERS: ADMIT Internal Medicine; ATTEND Internal Medicine
PROC: 027034Z Dilation of Coronary Artery, One Artery with Drug-eluting Intraluminal Device, Percutaneous Approach (ICD-10-PCS; principal; 2023-12-27 08:30)
PROC: 02C03ZZ Extirpation of Matter from Coronary Artery, One Artery, Percutaneous Approach (ICD-10-PCS; 2023-12-27 08:30)
PROC: B2111ZZ Fluoroscopy of Multiple Coronary Arteries using Low Osmolar Contrast (ICD-10-PCS; 2023-12-27 08:30)
PROC: B240ZZ3 Ultrasonography of Single Coronary Artery, Intravascular (ICD-10-PCS; 2023-12-27 08:30)
DX: I21.4 Non-ST elevation (NSTEMI) myocardial infarction (principal); E11.65 Type 2 diabetes mellitus with hyperglycemia; E03.9 Hypothyroidism, unspecified; E11.51 Type 2 diabetes mellitus with diabetic peripheral angiopathy without gangrene; D64.9 Anemia, unspecified; E66.9 Obesity, unspecified; I25.10 Atherosclerotic heart disease of native coronary artery without angina pectoris; E78.5 Hyperlipidemia, unspecified; E87.8 Other disorders of electrolyte and fluid balance, not elsewhere classified; I10 Essential (primary) hypertension; K21.9 Gastro-esophageal reflux disease without esophagitis; Z68.33 Body mass index [BMI] 33.0-33.9, adult; Z79.02 Long term (current) use of antithrombotics/antiplatelets; Z79.51 Long term (current) use of inhaled steroids; Z79.82 Long term (current) use of aspirin; Z79.84 Long term (current) use of oral hypoglycemic drugs; Z79.890 Hormone replacement therapy; Z79.899 Other long term (current) drug therapy; Z86.73 Personal history of transient ischemic attack (TIA), and cerebral infarction without residual deficits; M19.90 Unspecified osteoarthritis, unspecified site; Z91.199 Patient's noncompliance with other medical treatment and regimen due to unspecified reason; Z88.8 Allergy status to other drugs, medicaments and biological substances; Z90.49 Acquired absence of other specified parts of digestive tract; I65.29 Occlusion and stenosis of unspecified carotid artery
CPT/HCPCS: 36415; 71046; 76937; 80053; 83036; 83690; 83735; 84484; 85025; 85610; 85730; 92972; 92978; 93005; 93308; 93454; 94640; 94760; 99285

== ENCOUNTER 2024-05-10 07:32 | Observation (INO) | payer MEDICARE ==
--- NOTE | 2024-05-10 08:03 | ED ---
General Adult HPI - General Chief complaint: Chest Pain Stated complaint: high BP/congestion Time Seen by Provider: 05/10/24 07:44 Source: patient, RN notes reviewed Mode of arrival: ambulatory Limitations: no limitations - History of Present Illness Initial comments: Patient is a 73-year-old male present to the emergency department with concerns for chest discomfort last night. Patient states discomfort was 5/10. Patient took 2 nitroglycerin with resolution of symptoms. Blood pressure has been high this morning. Patient also has had cough and congestion for the past couple of weeks. Patient has history of COPD. Patient has had some wheezing. Patient has a difficult time describing the chest discomfort. Patient is unclear if he was more short of breath at that time. No nausea or diaphoresis. Patient did not take his blood pressure medicine yet this morning. - Related Data Home Medications Medication Instructions Recorded Confirmed Aspirin 81 mg PO DAILY 05/17/17 12/27/23 Atorvastatin [Lipitor] 80 mg PO DAILY 05/17/17 12/27/23 Ipratropium/Albuterol Sulfate 1 puff INHALATION RT-QID PRN 05/17/17 12/27/23 [Combivent Respimat Inhaler] Isosorbide Mononitrate ER [Imdur] 60 mg PO DAILY 05/17/17 12/27/23 Multivitamin [Men's Multi-Vitamin] 1 tab PO HS 05/17/17 12/27/23 Nitroglycerin Sl Tabs [Nitrostat] 0.4 mg SL Q5M PRN 05/17/17 12/27/23 amLODIPine [Norvasc] 10 mg PO DAILY 05/17/17 12/27/23 gemfibroziL [Lopid] 600 mg PO BID 05/17/17 12/27/23 lisinopriL [Zestril] 20 mg PO DAILY 05/17/17 12/27/23 Albuterol Nebulized [Ventolin 2.5 mg INHALATION RT-QID PRN 10/11/23 12/27/23 Nebulized] Ascorbic Acid [Vitamin C] 1,500 mg PO HS 10/11/23 12/27/23 Budesonide [Pulmicort] 0.5 mg INHALATION RT-BID 10/11/23 12/27/23 Cholecalciferol [Vitamin D3 (125 125 mcg PO HS 10/11/23 12/27/23 Mcg = 5000 Iu)] Ezetimibe [Zetia] 10 mg PO DAILY 10/11/23 12/27/23 Fish Oil 1600mg 3 cap PO HS 10/11/23 12/27/23 Montelukast [Singulair] 10 mg PO HS 10/11/23 12/27/23 Zinc Gluconate [Zinc] 50 mg PO HS 10/11/23 12/27/23 metFORMIN HCL ER [Glucophage XR] 500 mg PO BID 10/11/23 12/27/23 Metoprolol Succinate (ER) [Toprol 25 mg PO DAILY 12/27/23 12/27/23 XL] Previous Rx's Medication Instructions Recorded Famotidine [Pepcid] 20 mg PO DAILY #30 tablet 10/14/23 Levothyroxine Sodium [Synthroid] 50 mcg PO DAILY@0630 #30 tab 10/14/23 hydrALAZINE HCL [Apresoline] 25 mg PO TID #90 tab 10/14/23 Ranolazine [Ranexa] 500 mg PO Q12HR 30 Days #60 tab 12/28/23 Ticagrelor [Brilinta] 90 mg PO BID 30 Days #60 tab 12/28/23 hydroCHLOROthiazide [Hydrodiuril] 25 mg PO DAILY 30 Days #30 tab 12/28/23 Allergies Allergy/AdvReac Type Severity Reaction Status Date / Time fenofibrate [From Tricor] AdvReac mild rash Verified 12/27/23 09:51 simvastatin [From Zocor] AdvReac mild rash Verified 12/27/23 09:51 Review of Systems ROS Statement: Those systems with pertinent positive or pertinent negative responses have been documented in the HPI. ROS Other: All systems not noted in ROS Statement are negative. Constitutional: Denies: fever, chills Eyes: Denies: eye pain ENT: Reports: congestion Respiratory: Reports: as per HPI, cough, wheezes Cardiovascular: Reports: chest pain Endocrine: Denies: fatigue Gastrointestinal: Denies: abdominal pain Musculoskeletal: Denies: back pain Past Medical History Past Medical History: Asthma, Coronary Artery Disease (CAD), Chest Pain / Angina, COPD, CVA/TIA, Diabetes Mellitus, Hyperlipidemia, Hypertension, Myocardial Infarction ([place]), Osteoarthritis (OA), Vascular Disorder Additional Past Medical History / Comment(s): stroke 2014-no residual effects, hx. pancreatitis several yrs. ago; severe PAD; bilateral internal carotid sten osis. IN this past easter, 6 stents total History of Any Multi-Drug Resistant Organisms: None Reported Past Surgical History: Cholecystectomy, Heart Catheterization, Heart Catheterization With Stent, Orthopedic Surgery, Tonsillectomy Additional Past Surgical History / Comment(s): aorto femoral bypass, repair of aneurysm in bypass, ORIF left lower leg, left stent carotid Past Anesthesia/Blood Transfusion Reactions: No Reported Reaction Date of Last Stent Placement:: 2016 Past Psychological History: No Psychological Hx Reported Smoking Status: Former smoker Past Alcohol Use History: None Reported Past Drug Use History: None Reported - Past Family History Father Family Medical History: Cancer General Exam Limitations: no limitations General appearance: alert, in no apparent distress Head exam: Present: normocephalic Eye exam: Present: normal appearance Neck exam: Present: normal inspection Respiratory exam: Present: wheezes Cardiovascular Exam: Present: regular rate, normal rhythm GI/Abdominal exam: Present: soft. Absent: tenderness Extremities exam: Present: normal inspection. Absent: pedal edema, calf tenderness Neurological exam: Present: alert Psychiatric exam: Present: normal affect, normal mood Skin exam: Present: normal color Course Vital Signs 05/10/24 05/10/24 05/10/24 07:38 07:58 08:00 Temperature 97.8 F Pulse Rate 80 73 Pulse Rate [ 78 Parachute Supervisor ] Respiratory 18 19 Rate Blood Pressure 191/92 199/109 O2 Sat by Pulse 97 95 Oximetry 05/10/24 09:30 Temperature Pulse Rate 71 Pulse Rate [ Parachute Supervisor ] Respiratory 18 Rate Blood Pressure 177/89 O2 Sat by Pulse 95 Oximetry EKG Findings - EKG Results: EKG: interpreted by ERMD (Left axis. Left anterior fascicular block.), sinus r hythm, normal ST/T Medical Decision Making - Medical Decision Making Was pt. sent in by a medical professional or institution (, PA, ALUMINUM CAN COLLECTOR, urgent care, hospital, or shelter...) When possible be specific @ -No Did you speak to anyone other than the patient for history (EMS, parent, family, police, friend...)? What history was obtained from this source @ -Family is present and helps provide history including onset of symptoms and duration Did you review nursing and triage notes (agree or disagree)? Why? @ -I reviewed and agree with nursing and triage notes Were old charts reviewed (outside hosp., previous admission, EMS record, old EKG, old radiological studies, urgent care reports/EKG's, shelter records)? Report findings @ -Previous chest x-ray reviewed shows no acute process Differential Diagnosis (chest pain, altered mental status, abdominal pain women, abdominal pain men, vaginal bleeding, weakness, fever, dyspnea, syncope, headache, dizziness, GI bleed, back pain, seizure, CVA, palpatations, mental health, musculoskeletal)? @ -Differential Chest Pain: Stable Angina, Unstable Angina, STEMI, NSTEMI Aortic Dissection, Pneumothorax, Musculoskeletal, Esophageal Spasm GERD, Cholecystitis, Pancreatitis, Zoster, this is not meant to be an all-inclusive list. EKG interpreted by me (3pts min.). @ -As above X-rays interpreted by me (1pt min.). @ -Chest x-ray shows questionable right lower lobe atelectasis versus developing infiltrate CT interpreted by me (1pt min.). @ -CT angio of the chest is limited, no definite pulmonary embolism. No evidence of pneumonia on CT scan U/S interpreted by me (1pt. min.). @ -None done What testing was considered but not performed or refused? (CT, X-rays, U/S, labs)? Why? @ -None What meds were considered but not given or refused? Why? @ -None Did you discuss the management of the patient with other professionals (professionals i.e. , PA, ALUMINUM CAN COLLECTOR, lab, RT, psych nurse, social work assistant, screen printing machine loader unloader, teacher, alumni relations officer, rifle case repairer)? Give summary @ -Case discussed with practitioner Leticia Garcia, covering hospital call who will admit Was smoking cessation discussed for >3mins.? @ -No Was critical care preformed (if so, how long)? @ -31 minutes critical care time Were there social determinants of health that impacted care today? How? (Homelessness, low income, unemployed, alcoholism, drug addiction, transportation, low edu. Level, literacy, decrease access to med. care, [facility], rehab)? @ -No Was there de-escalation of care discussed even if they declined (Discuss DNR or withdrawal of care, Hospice)? DNR status @ -No What co-morbidities impacted this encounter? (DM, HTN, Smoking, COPD, CAD, Cancer, CVA, ARF, Chemo, Hep., AIDS, mental health diagnosis, sleep apnea, morbid obesity)? @ -None Was patient admitted / discharged? Hospital course, mention meds given and route, prescriptions, significant lab abnormalities, going to OR and other pertinent info. @ -Patient presents with chest discomfort and hypertension. Blood pressure improving. Troponin is slightly elevated. Patient will be admitted with cardiac consult. No concerns for pneumonia on CT. Undiagnosed new problem with uncertain prognosis? @ -No Drug Therapy requiring intensive monitoring for toxicity (Heparin, Nitro, Insulin, Cardizem)? @ -Heparin will be started Were any procedures done? @ -No Diagnosis/symptom? @ -Unstable angina, hypertension Acute, or Chronic, or Acute on Chronic? @ -Acute, acute Uncomplicated (without systemic symptoms) or Complicated (systemic symptoms)? @ -Default Side effects of treatment? @ -No Exacerbation, Progression, or Severe Exacerbation? @ -No Poses a threat to life or bodily function? How? (Chest pain, [place], [place], pneumonia, PE, COPD, DKA, ARF, appy, cholecystitis, CVA, Diverticulitis, Homicidal, Suicidal, threat to staff... and all critical care pts) @ -Threat to cardiac function - Lab Data Result diagrams: 05/10/24 08:10 05/10/24 08:10 Lab Results 05/10/24 05/10/24 05/10/24 Range/Units 08:10 08:10 08:10 WBC 12.1 H (3.8-10.6) k/uL RBC 4.30 (4.30-5.90) m/uL Hgb 13.2 (13.0-17.5) gm/dL Hct 41.1 (39.0-53.0) % MCV 95.6 (80.0-100.0) fL MCH 30.6 (25.0-35.0) pg MCHC 32.0 (31.0-37.0) g/dL RDW 13.3 (11.5-15.5) % Plt Count 187 (150-450) k/uL MPV 8.9 Neutrophils % 82 % Lymphocytes % 10 % Monocytes % 6 % Eosinophils % 1 % Basophils % 0 % Neutrophils # 9.9 H (1.3-7.7) k/uL Lymphocytes # 1.2 (1.0-4.8) k/uL Monocytes # 0.7 (0-1.0) k/uL Eosinophils # 0.1 (0-0.7) k/uL Basophils # 0.0 (0-0.2) k/uL PT 10.7 (10.0-12.5) sec INR 1.0 (<1.2) APTT 22.6 (22.0-30.0) sec D-Dimer 1.23 H (<0.60) mg/L FEU Sodium 138 (137-145) mmol/L Potassium 4.2 (3.5-5.1) mmol/L Chloride 107 (98-107) mmol/L Carbon Dioxide 25 (22-30) mmol/L Anion Gap 6 mmol/L BUN 28 H (9-20) mg/dL Creatinine 1.11 (0.66-1.25) mg/dL Est GFR (CKD-EPI)AfAm 77 (>60 ml/min/1.73 sqM) Est GFR (CKD-EPI)NonAf 67 (>60 ml/min/1.73 sqM) Glucose 130 H (74-99) mg/dL Calcium 9.4 (8.4-10.2) mg/dL Magnesium 1.7 (1.6-2.3) mg/dL Total Bilirubin 0.6 (0.2-1.3) mg/dL AST 30 (17-59) U/L ALT 23 (4-49) U/L Alkaline Phosphatase 83 (38-126) U/L Troponin I (0.000-0.034) ng/mL NT-Pro-B Natriuret Pep 602 pg/mL Total Protein 6.6 (6.3-8.2) g/dL Albumin 4.2 (3.5-5.0) g/dL Influenza Type A (PCR) (Not Detectd) Influenza Type B (PCR) (Not Detectd) RSV (PCR) (Not Detectd) SARS-CoV-2 (PCR) (Not Detectd) 05/10/24 05/10/24 Range/Units 08:10 08:10 WBC (3.8-10.6) k/uL RBC (4.30-5.90) m/uL Hgb (13.0-17.5) gm/dL Hct (39.0-53.0) % MCV (80.0-100.0) fL MCH (25.0-35.0) pg MCHC (31.0-37.0) g/dL RDW (11.5-15.5) % Plt Count (150-450) k/uL MPV Neutrophils % % Lymphocytes % % Monocytes % % Eosinophils % % Basophils % % Neutrophils # (1.3-7.7) k/uL Lymphocytes # (1.0-4.8) k/uL Monocytes # (0-1.0) k/uL Eosinophils # (0-0.7) k/uL Basophils # (0-0.2) k/uL PT (10.0-12.5) sec INR (<1.2) APTT (22.0-30.0) sec D-Dimer (<0.60) mg/L FEU Sodium (137-145) mmol/L Potassium (3.5-5.1) mmol/L Chloride (98-107) mmol/L Carbon Dioxide (22-30) mmol/L Anion Gap mmol/L BUN (9-20) mg/dL Creatinine (0.66-1.25) mg/dL Est GFR (CKD-EPI)AfAm (>60 ml/min/1.73 sqM) Est GFR (CKD-EPI)NonAf (>60 ml/min/1.73 sqM) Glucose (74-99) mg/dL Calcium (8.4-10.2) mg/dL Magnesium (1.6-2.3) mg/dL Total Bilirubin (0.2-1.3) mg/dL AST (17-59) U/L ALT (4-49) U/L Alkaline Phosphatase (38-126) U/L Troponin I 0.074 H* (0.000-0.034) ng/mL NT-Pro-B Natriuret Pep pg/mL Total Protein (6.3-8.2) g/dL Albumin (3.5-5.0) g/dL Influenza Type A (PCR) Not Detected (Not Detectd) Influenza Type B (PCR) Not Detected (Not Detectd) RSV (PCR) Not Detected (Not Detectd) SARS-CoV-2 (PCR) Not Detected (Not Detectd) Critical Care Time Critical Care Time: Yes Total Critical Care Time: 31 Disposition Clinical Impression: Unstable angina Disposition: ADMITTED IP TO THIS [facility] Condition: Serious Is patient prescribed a controlled substance at d/c from ED?: No Referrals: Juan Carlos Franco MD [Primary Care Provider] - 1-2 days Time of Disposition: 10:20
[2024-05-10 08:20] LABS: Basophils % (A) 0 %; Eosinophils # (A) 0.1 k/uL (0-0.7); Eosinophils % (A) 1 %; HCT 41.1 % (39.0-53.0); HGB 13.2 gm/dL (13.0-17.5); Lymphocytes # (A) 1.2 k/uL (1.0-4.8); Lymphocytes % (A) 10 %; MCH 30.6 pg (25.0-35.0); MCV 95.6 fL (80.0-100.0); Mean Platelet Volume 8.9; Monocytes # (A) 0.7 k/uL (0-1.0); Monocytes % (A) 6 %; Neutrophils # (A) 9.9 k/uL (1.3-7.7); Neutrophils % (A) 82 %; Platelet Count 187 k/uL (150-450); RDW 13.3 % (11.5-15.5); WBC 12.1 k/uL (3.8-10.6)
[2024-05-10] MEDS: ASPIRIN 81 MG PO STA (08:26)
[2024-05-10] MEDS: NITROGLYCERIN OINT 1 INCH/GM PACKET TOPICAL STA (08:26)
[2024-05-10 08:28] LABS: ALT 23 U/L (4-49); AST 30 U/L (17-59); African American GFR (CKD) 77 (>60 ml/min/1.73 sqM); Albumin 4.2 g/dL (3.5-5.0); Alkaline Phosphatase 83 U/L (38-126); Anion Gap 6 mmol/L; Blood Urea Nitrogen 28 mg/dL (9-20); Calcium 9.4 mg/dL (8.4-10.2); Carbon Dioxide 25 mmol/L (22-30); Chloride 107 mmol/L (98-107); Glucose 130 mg/dL (74-99); Magnesium 1.7 mg/dL (1.6-2.3); Non-African American GFR(CKD) 67 (>60 ml/min/1.73 sqM); Potassium 4.2 mmol/L (3.5-5.1); Sodium 138 mmol/L (137-145); Total Bilirubin 0.6 mg/dL (0.2-1.3); Total Protein 6.6 g/dL (6.3-8.2)
[2024-05-10 08:36] LABS: NT-Pro-B-Type Natriuretic Pept 602 pg/mL
--- NOTE | 2024-05-10 08:36 | XR ---
EXAMINATION TYPE: XR chest 2V DATE OF EXAM: 05/10/2024 8:21 AM COMPARISON: 12/27/2023 CLINICAL INDICATION: Male, 73 years old with history of Chest Pain, , TECHNIQUE: PA and lateral views FINDINGS: Heart normal size. Mild hyperinflation. Mild patchy right basilar density. Coronary stent noted on th e lateral view. There is a nodular opacity at the left base. No pleural effusion. IMPRESSION: 1. COPD with some patchy atelectasis or developing infiltrate at the right base. 2. Nodular appearing opacity at the left base could represent some nodular atelectasis. Reassess at a 6 - 8 week follow-up radiograph. If there is persistence or enlargement, follow-up CT can be conside red. [facility], , 05/10/2024 8:33 AM
[2024-05-10 08:41] LABS: Partial Thromboplastin Time 22.6 sec (22.0-30.0); Prothrombin Time 10.7 sec (10.0-12.5)
--- NOTE | 2024-05-10 09:46 | CT ---
EXAMINATION TYPE: CT angio chest DATE OF EXAM: 05/10/2024 COMPARISON: 10/11/2023 HISTORY: 73-year-old male chest pain, SOB, COPD, cough x2 weeks TECHNIQUE: Contiguous axial scanning of the chest after the administration of 100 mL of Isovue 370. Coronal/sagittal MIP reconstructions performed. CT DLP: 793.6mGycm. Automatic exposure control utilized for a dose reduction. FINDINGS: The heart is normal size without pericardial effusion. No flattening of the interventricular septum o r reflux of contrast into the hepatic veins. Prominent LAD and circumflex coronary calcifications are present. Ascending aorta is ectatic at 3.9 cm. Moderate atherosclerotic plaquing calcification descending thoracic aorta and mild within the aortic arch. Bovine configuration to the aortic arch. Mid descending thoracic aorta aneurysmal at 3.8 cm. Lower descending thoracic aorta aneurysmal at 3.1 cm. Upper abdominal aorta aneurysmal at 4.0 cm. Mid abdominal aorta aneurysmal 4.6 cm. Prominent atherosc lerotic plaque and calcification is present particularly at the midportion. Suboptimal contrast bolus with attenuation of 173 Hounsfield units. Large caliber main right and left pulmonary arteries measuring up to 2.7 cm suggesting underlying pulmonary arterial hypertension. Th is limits assessment for pulmonary emboli. No large central or definite lobar branches or embolus. No definite pulmonary embolus seen elsewhere in the lungs. There is no thoracic lymphadenopathy by CT s ize criteria. Moderate emphysematous changes especially in the upper lungs. Patchy opacity at the inferior lingula and periphery of the left base probably atelectasis. No consolidation or pleural effusion. There is a partially visualized omental fat-containing ventral abdominal wall hernia in the mid abdom en. Exophytic cyst posterior left kidney measuring 5.2 cm. Partially visualized exophytic lesion from the medial upper right kidney, questionably larger. Cholecystectomy clips. Bones: Mild degenerative disc disease throughout the thoracic spine. IMPRESSION: 1. Suboptimal contrast bolus. No definite pulmonary embolus identified allowing for this limitation. 2. COPD with moderate emphysema and pulmonary arterial hypertension. LAD and circumflex coronary roxy ry calcifications. 3. Diffusely aneurysmal descending thoracic aorta measuring up to 3.8 cm. Upper abdominal aorta aneur ysmal at 4.0 cm. Mid abdominal aorta partially visualized measuring up to 4.6 cm. Recommend vascular surgery referral for any subsequent surveillance. 4. Partially visualized exophytic lesion from the upper pole right kidney. Recommend 3 month follow-u p kidney CT for further characterization and to assess for stability. [facility], , 05/10/2024 9:43 AM
[2024-05-10] MEDS ORDERED: NITROGLYCERIN SL TABS 0.4 MG TAB SUBLINGUAL PRN ×2 (10:20→13:08)
--- NOTE | 2024-05-10 11:18 | P.HPIM ---
History of Present Illness 73-year-old male came to complaints of elevated blood pressure also had a pressure-like sensation of chest pain at that time and that improved with nitroglycerin. Patient is on multiple antihypertensive medications apparently did not take his medications yesterday morning and patient was also started on prednisone by the PCP because of 2 weeks cough. Patient appears to have cough. Asthma. Does use albuterol and budesonide breathing treatments. His chest discomfort completely resolved the chest pain is across the chest nonradiating nagging kind of pain no associated diaphoresis or lightheadedness. Patient had a recent cardiac catheterization couple times this year with stents. His symptoms are similar to when he had a heart attack at that time. Patient is a mild elevated troponin of 0.079 facet second set is still pending. REVIEW OF SYSTEMS: All other systems are negative except those mentioned in the HPI PHYSICAL EXAMINATION: GENERAL: The patient is alert and oriented x3, not in any acute distress. Well developed, well nourished. HEENT: Pupils are round and equally reacting to light. EOMI. No scleral icterus. No conjunctival pallor. Normocephalic, atraumatic. No pharyngeal erythema. No thyromegaly. CARDIOVASCULAR: S1 and S2 present. No murmurs, rubs, or gallops. PULMONARY: Chest is clear to auscultation, no wheezing or crackles. ABDOMEN: Soft, nontender, nondistended, normoactive bowel sounds. No palpable organomegaly. MUSCULOSKELETAL: No joint swelling or deformity. EXTREMITIES: No cyanosis, clubbing, or pedal edema. NEUROLOGICAL: Gross neurological examination did not reveal any focal deficits. SKIN: No rashes. Assessment and plan Mild elevation of troponin possibility of type I non-ST elevation MD cannot be ruled out patient is on IV heparin and troponin elevation can be secondary to elevated blood pressure as well cardiology will evaluate the patient EKG did not show any significant acute ST-T wave changes -Nodular opacities on the chest x-ray which was not seen on the CT scan -Incidental finding of exophytic lesion on the kidney: Follow-up with urology as an outpatient and repeat imaging in 3 months -Abdominal aortic aneurysm and descending thoracic arctic aneurysm patient follows up with vascular surgery as an outpatient -Hypertension patient did not take his medications today morning blood pressure is better controlled now -Hypothyroidism continue with levothyroxine -Hyperlipidemia -Coronary artery disease -Type 2 diabetes mellitus patient blood sugars are expected to be high today because he received steroids yesterday patient resumed on home regimen along with sliding scale insulin DVT prophylaxis: Patient is on IV heparin Past Medical History Past Medical History: Asthma, Coronary Artery Disease (CAD), Chest Pain / Angina, COPD, CVA/TIA, Diabetes Mellitus, Hyperlipidemia, Hypertension, Myocardial Infarction (MD), Osteoarthritis (OA), Vascular Disorder Additional Past Medical History / Comment(s): stroke 2014-no residual effects, hx. pancreatitis several yrs. ago; severe PAD; bilateral internal carotid stenosis. MD this past easter, 6 stents total History of Any Multi-Drug Resistant Organisms: None Reported Past Surgical History: Cholecystectomy, Heart Catheterization, Heart Catheterization With Stent, Orthopedic Surgery, Tonsillectomy Additional Past Surgical History / Comment(s): aorto femoral bypass, repair of aneurysm in bypass, ORIF left lower leg, left stent carotid Past Anesthesia/Blood Transfusion Reactions: No Reported Reaction Date of Last Stent Placement:: 2016 Past Psychological History: No Psychological Hx Reported Smoking Status: Former smoker Past Alcohol Use History: None Reported Past Drug Use History: None Reported - Past Family History Father Family Medical History: Cancer Medications and Allergies Home Medications Medication Instructions Recorded Confirmed Type Aspirin 81 mg PO DAILY 05/17/17 12/27/23 History Atorvastatin [Lipitor] 80 mg PO DAILY 05/17/17 12/27/23 History Ipratropium/Albuterol Sulfate 1 puff INHALATION RT-QID PRN 05/17/17 12/27/23 History [Combivent Respimat Inhaler] Isosorbide Mononitrate ER [Imdur] 60 mg PO DAILY 05/17/17 12/27/23 History Multivitamin [Men's Multi-Vitamin] 1 tab PO HS 05/17/17 12/27/23 History Nitroglycerin Sl Tabs [Nitrostat] 0.4 mg SL Q5M PRN 05/17/17 12/27/23 History amLODIPine [Norvasc] 10 mg PO DAILY 05/17/17 12/27/23 History gemfibroziL [Lopid] 600 mg PO BID 05/17/17 12/27/23 History lisinopriL [Zestril] 20 mg PO DAILY 05/17/17 12/27/23 History Albuterol Nebulized [Ventolin 2.5 mg INHALATION RT-QID PRN 10/11/23 12/27/23 H istory Nebulized] Ascorbic Acid [Vitamin C] 1,500 mg PO HS 10/11/23 12/27/23 History Budesonide [Pulmicort] 0.5 mg INHALATION RT-BID 10/11/23 12/27/23 History Cholecalciferol [Vitamin D3 (125 125 mcg PO HS 10/11/23 12/27/23 History Mcg = 5000 Iu)] Ezetimibe [Zetia] 10 mg PO DAILY 10/11/23 12/27/23 History Fish Oil 1600mg 3 cap PO HS 10/11/23 12/27/23 History Montelukast [Singulair] 10 mg PO HS 10/11/23 12/27/23 History Zinc Gluconate [Zinc] 50 mg PO HS 10/11/23 12/27/23 History metFORMIN HCL ER [Glucophage XR] 500 mg PO BID 10/11/23 12/27/23 History Famotidine [Pepcid] 20 mg PO DAILY #30 tablet 10/14/23 12/27/23 Rx Levothyroxine Sodium [Synthroid] 50 mcg PO DAILY@0630 #30 tab 10/14/23 12/27/23 Rx hydrALAZINE HCL [Apresoline] 25 mg PO TID #90 tab 10/14/23 12/27/23 Rx Metoprolol Succinate (ER) [Toprol 25 mg PO DAILY 12/27/23 12/27/23 History XL] Ranolazine [Ranexa] 500 mg PO Q12HR 30 Days #60 tab 12/28/23 Rx Ticagrelor [Brilinta] 90 mg PO BID 30 Days #60 tab 12/28/23 Rx hydroCHLOROthiazide [Hydrodiuril] 25 mg PO DAILY 30 Days #30 tab 12/28/23 Rx Allergies Allergy/AdvReac Type Severity Reaction Status Date / Time fenofibrate [From Tricor] AdvReac mild rash Verified 05/10/24 11:10 simvastatin [From Zocor] AdvReac mild rash Verified 05/10/24 11:10 Physical Exam Vitals: Vital Signs Temp Pulse Pulse Resp BP Pulse Ox 05/10/24 09:30 71 18 177/89 95 05/10/24 08:00 78 05/10/24 07:58 73 19 199/109 95 05/10/24 07:38 97.8 F 80 18 191/92 97 Intake and Output 05/09/24 05/10/24 05/10/24 22:59 06:59 14:59 Other: Weight 108.862 kg Results CBC & Chem 7: 05/10/24 08:10 05/10/24 08:10 Labs: Abnormal Lab Results - Last 24 Hours (Table) 05/10/24 05/10/24 05/10/24 Range/Units 08:10 08:10 08:10 WBC 12.1 H (3.8-10.6) k/uL Neutrophils # 9.9 H (1.3-7.7) k/uL D-Dimer 1.23 H (<0.60) mg/L FEU BUN 28 H (9-20) mg/dL Glucose 130 H (74-99) mg/dL Troponin I (0.000-0.034) ng/mL 05/10/24 Range/Units 08:10 WBC (3.8-10.6) k/uL Neutrophils # (1.3-7.7) k/uL D-Dimer (<0.60) mg/L FEU BUN (9-20) mg/dL Glucose (74-99) mg/dL Troponin I 0.074 H* (0.000-0.034) ng/mL
[2024-05-10] MEDS: HEPARIN SODIUM 1,000 UN/ML (10ML VL) IV ONE (11:43)
[2024-05-10] MEDS: HEPARIN SOD,PORK IN 0.45% NACL 25,000 UNIT in 0.45% NACL 1 250ML.BAG IV SCH (11:44)
[2024-05-10] MEDS ORDERED: NITROGLYCERIN OINT 1 INCH/GM PACKET TOPICAL SCH (12:00)
[2024-05-10 12:06] LABS: Glucose,Whole Blood 131 mg/dL (70-110)
[2024-05-10] MEDS: INSULIN ASPART (NovoLOG) 100 UNIT/ML VIAL SQ SCH ×2 (12:06→17:24)
--- NOTE | 2024-05-10 12:36 | P.CRDCN ---
History of Present Illness History of present illness: HISTORY OF PRESENT ILLNESS: This is a 73-year-old male with a past medical history significant for coronary artery disease with previous stenting, peripheral arterial disease with previous revascularization, carotid stenosis with previous bilateral carotid endarterectomy and stenting of right ICA, hypertension, hyperlipidemia, and COPD. Patient follows in the office with Dr. Arias. We have been asked to see the patient in consultation for chest pain. Patient examined at the bedside in the emergency room. Patient states he did not take any of his cardiac medications yesterday. He states that he notices blood pressure was elevated at home. He began to have chest discomfort yesterday in the middle of his chest. He took nitro with relief of his chest pain. It is noted that the patient is also on oral steroids on an outpatient basis. He presented to the hospital for further evaluation. Patient was found to have elevated troponins and was started on IV heparin. Patient's blood pressure on admission was elevated at 199/109. DIAGNOSTICS: - EKG reveals sinus mechanism with no signs of acute ischemia - Chest xray COPD with some patchy atelectasis or developing infiltrate at the right base. Nodular appearing opacity at the left base could represent some nodular atelectasis. - Laboratory data: WBC 12.1. Hemoglobin 13.2. Platelet count 187. Sodium 138. Potassium 4.2. BUN 28. Creatinine 1.11. Troponin 0.074. 0.121. proBNP 602. - Current home cardiac medications include lisinopril 20 mg daily, hydrochlorothiazide 25 mg daily, hydralazine 25 mg 3 times daily, amlodipine 10 mg daily, Xarelto 2.5 mg daily, Ranexa 500 mg twice a day, metoprolol succinate 50 mg daily, Imdur 60 mg daily, Zetia 10 mg daily, Plavix 75 mg daily, Lipitor 80 mg daily, aspirin 81 mg daily - Most recent echocardiogram obtained in October 2023 revealed ejection fraction 45 to 50%, trace MR, trace TR, no pericardial effusion - Cardiac catheterization history: December 2023 revealing patent stent in the LAD, severe disease involving mid left circumflex just proximal to the stented segme nt, and intermediate to severe disease involving the RCA distally appears to be unchanged from prior. Patient underwent stenting of the mid circumflex. REVIEW OF SYSTEMS: At the time of my exam: CONSTITUTIONAL: Denies fever or chills. HEENT: Denies blurred vision, vision changes, or eye pain. Denies hemoptysis CARDIOVASCULAR: Denies chest pain. Denies orthopnea. Denies PND. Denies palpitations RESPIRATORY: Denies shortness of breath. GASTROINTESTINAL: Denies abdominal pain. Denies nausea or vomiting. HEMATOLOGIC: Denies bleeding disorders. GENITOURINARY: Denies any blood in urine. SKIN: Denies pruitis. Denies rash. PHYSICAL EXAM: VITAL SIGNS: Reviewed. GENERAL: Well-developed in no acute distress. HEENT: Head is normocephalic. Pupils are equal, round. Sclerae anicteric. Mucous membranes of the mouth are moist. Neck supple. No JVD or thyromegaly LUNGS: Respirations even and unlabored. Lungs essentially clear to auscultation bilaterally. HEART: Regular rate and rhythm. S1 and S2 heard. ABDOMEN: Soft. Nondistended. Nontender. EXTREMITIES: Normal range of motion. No clubbing or cyanosis. Peripheral pulses intact. No lower extremity edema NEUROLOGIC: Awake and alert. Oriented x 3. ASSESSMENT: Chest pain Elevated troponins, suspect type II [place] secondary to hypertensive emergency Hypertensive emergency, improving, patient reports not taking any medications yesterday Coronary artery disease with previous stenting of circumflex and LAD Known intermediate to severe disease involving the RCA Peripheral arterial disease with previous lower extremity revascularization Carotid stenosis status post bilateral carotid endarterectomy and previous stenting of right ICA Hypertension Hyperlipidemia COPD PLAN: Obtain 2D echo to assess cardiac structure and function Continue IV heparin Resume home cardiac medications Continue aspirin and Plavix. Hold low-dose Xarelto due to IV heparin infusion Continue to trend troponins No plans for cardiac catheterization at this time unless patient develops significant chest discomfort. Patient with previous difficulty obtaining access during cardiac catheterizations both radial and femoral. Previous cardiac catheterization had to be performed through right brachial. Additionally, patient's troponin elevation may be secondary to hypertensive emergency upon admission. Further recommendations pending patient course Nurse practitioner note has been reviewed by physician. Signing provider agrees with the documented findings, assessment, and plan of care documented by LIFE TRAINER as a scribe. Past Medical History Past Medical History: Asthma, Coronary Artery Disease (CAD), Chest Pain / An awilda, COPD, CVA/TIA, Diabetes Mellitus, Hyperlipidemia, Hypertension, Myocardial Infarction (MA), Osteoarthritis (OA), Vascular Disorder Additional Past Medical History / Comment(s): stroke 2015-no residual effects, hx. pancreatitis several yrs. ago; severe PAD; bilateral internal carotid stenosis. MA this past easter, 6 stents total History of Any Multi-Drug Resistant Organisms: None Reported Past Surgical History: Cholecystectomy, Heart Catheterization, Heart Catheterization With Stent, Orthopedic Surgery, Tonsillectomy Additional Past Surgical History / Comment(s): aorto femoral bypass, repair of aneurysm in bypass, ORIF left lower leg, left stent carotid Past Anesthesia/Blood Transfusion Reactions: No Reported Reaction Date of Last Stent Placement:: 2016 Past Psychological History: No Psychological Hx Reported Smoking Status: Former smoker Past Alcohol Use History: None Reported Past Drug Use History: None Reported - Past Family History Father Family Medical History: Cancer Medications and Allergies Home Medications Medication Instructions Recorded Confirmed Type Aspirin 81 mg PO DAILY 05/17/17 05/10/24 History Atorvastatin [Lipitor] 80 mg PO DAILY 05/17/17 05/10/24 History Ipratropium/Albuterol Sulfate 1 puff INHALATION RT-QID PRN 05/17/17 05/10/24 History [Combivent Respimat Inhaler] Isosorbide Mononitrate ER [Imdur] 60 mg PO DAILY 05/17/17 05/10/24 History Multivitamin [Men's Multi-Vitamin] 1 tab PO HS 05/17/17 05/10/24 History Nitroglycerin Sl Tabs [Nitrostat] 0.4 mg SL Q5M PRN 05/17/17 05/10/24 History amLODIPine [Norvasc] 10 mg PO DAILY 05/17/17 05/10/24 History gemfibroziL [Lopid] 600 mg PO BID 05/17/17 05/10/24 History lisinopriL [Zestril] 20 mg PO DAILY 05/17/17 05/10/24 History Albuterol Nebulized [Ventolin 2.5 mg INHALATION RT-QID PRN 10/11/23 05/10/24 History Nebulized] Ascorbic Acid [Vitamin C] 1,500 mg PO DAILY 10/11/23 05/10/24 History Budesonide [Pulmicort] 0.5 mg INHALATION RT-BID 10/11/23 05/10/24 History Cholecalciferol [Vitamin D3 (125 125 mcg PO DAILY 10/11/23 05/10/24 History Mcg = 5000 Iu)] Ezetimibe [Zetia] 10 mg PO DAILY 10/11/23 05/10/24 History Fish Oil 1600mg 3 cap PO HS 10/11/23 05/10/24 History Montelukast [Singulair] 10 mg PO HS 10/11/23 05/10/24 History Zinc Gluconate [Zinc] 50 mg PO DAILY 10/11/23 05/10/24 History metFORMIN HCL ER [Glucophage XR] 500 mg PO BID 10/11/23 05/10/24 History Levothyroxine Sodium [Synthroid] 50 mcg PO DAILY@0630 #30 tab 10/14/23 05/10/24 Rx hydrALAZINE HCL [Apresoline] 25 mg PO TID #90 tab 10/14/23 05/10/24 Rx Metoprolol Succinate (ER) [Toprol 50 mg PO DAILY 12/27/23 05/10/24 History XL] Ranolazine [Ranexa] 500 mg PO Q12HR 30 Days #60 tab 12/28/23 05/10/24 Rx hydroCHLOROthiazide [Hydrodiuril] 25 mg PO DAILY 30 Days #30 tab 12/28/23 05/10/24 Rx Clopidogrel [Plavix] 75 mg PO DAILY 05/10/24 05/10/24 History EPINEPHrine (Auto Inject) [Epipen] 0.3 mg IM ONCE PRN 05/10/24 05/10/24 History Rivaroxaban [Xarelto] 2.5 mg PO DAILY 05/10/24 05/10/24 History Triamcinolone 0.5% Cream [Kenalog 1 applic TOPICAL DAILY 05/10/24 05/10/24 History 0.5% Cream] predniSONE See Taper PO DAILY 05/10/24 05/10/24 History Allergies Allergy/AdvReac Type Severity Reaction Status Date / Time fenofibrate [From Tricor] AdvReac mild rash Verified 05/10/24 11:10 simvastatin [From Zocor] AdvReac mild rash Verified 05/10/24 11:10 Physical Exam Vitals: Vital Signs Temp Pulse Pulse Resp BP Pulse Ox 05/10/24 11:29 68 19 160/87 96 05/10/24 09:30 71 18 177/89 95 05/10/24 08:00 78 05/10/24 07:58 73 19 199/109 95 05/10/24 07:38 97.8 F 80 18 191/92 97 Intake and Output 05/09/24 05/10/24 05/10/24 22:59 06:59 14:59 Other: Weight 108.862 kg Results 05/10/24 08:10 05/10/24 08:10 Cardiac Enzymes 05/10/24 05/10/24 05/10/24 Range/Units 08:10 08:10 10:39 AST 30 (17-59) U/L Troponin I 0.074 H* 0.121 H* (0.000-0.034) ng/mL Coagulation 05/10/24 05/10/24 Range/Units 08:10 10:39 PT 10.7 (10.0-12.5) sec APTT 22.6 24.1 (22.0-30.0) sec CBC 05/10/24 Range/Units 08:10 WBC 12.1 H (3.8-10.6) k/uL RBC 4.30 (4.30-5.90) m/uL Hgb 13.2 (13.0-17.5) gm/dL Hct 41.1 (39.0-53.0) % Plt Count 187 (150-450) k/uL Comprehensive Metabolic Panel 05/10/24 Range/Units 08:10 Sodium 138 (137-145) mmol/L Potassium 4.2 (3.5-5.1) mmol/L Chloride 107 (98-107) mmol/L Carbon Dioxide 25 (22-30) mmol/L BUN 28 H (9-20) mg/dL Creatinine 1.11 (0.66-1.25) mg/dL Glucose 130 H (74-99) mg/dL Calcium 9.4 (8.4-10.2) mg/dL AST 30 (17-59) U/L ALT 23 (4-49) U/L Alkaline Phosphatase 83 (38-126) U/L Total Protein 6.6 (6.3-8.2) g/dL Albumin 4.2 (3.5-5.0) g/dL Current Medications Generic Name Dose Route Start Last Admin Trade Name Freq PRN Reason Stop Dose Admin Albuterol/Ipratropium 3 ml 05/10/24 11:12 Ipratropium-Albuterol 3 Ml Neb INHALATION RT-QID PRN Shortness Of Breath Or Wheezing Amlodipine Besylate 10 mg 05/10/24 12:00 Amlodipine 10 Mg Tab PO DAILY [facility] Aspirin 81 mg 05/11/24 09:00 Aspirin 81 Mg PO DAILY [facility] Atorvastatin Calcium 80 mg 05/10/24 12:00 Atorvastatin 80 Mg Tab PO DAILY [facility] Budesonide 0.5 mg 05/10/24 20:00 Budesonide 0.5 Mg/2 Ml Nebu INHALATION RT-BID [facility] Clopidogrel Bisulfate 75 mg 05/10/24 12:00 Clopidogrel 75 Mg Tab PO DAILY [facility] Ezetimibe 10 mg 05/10/24 12:00 Ezetimibe 10 Mg Tab PO DAILY [facility] Hydralazine HCl 25 mg 05/10/24 12:00 Hydralazine Hcl 25 Mg Tab PO TID [facility] Hydrochlorothiazide 25 mg 05/10/24 12:00 Hydrochlorothiazide 25 Mg Tab PO DAILY [facility] Heparin Sodium/Sodium Chloride 250 mls @ 9.994 mls/hr 05/10/24 10:30 05/10/24 11:44 25,000 unit/ Sodium Chloride IV 9.18 units/kg/hr .Q24H [facility] 9.994 mls/hr Administration Protocol 9.18 UNITS/KG/HR Insulin Aspart 0 unit 05/10/24 12:30 05/10/24 12:06 Insulin Aspart (Novolog) 100 Unit/Ml Vial SQ Not Given AC-TID [facility] Protocol Isosorbide Mononitrate 60 mg 05/10/24 12:00 Isosorbide Mononitrate Er 60 Mg Tab.Er.24h PO DAILY [facility] Lisinopril 20 mg 05/10/24 12:00 Lisinopril 20 Mg Tab PO DAILY [facility] Metoprolol Succinate 50 mg 05/10/24 12:00 Metoprolol Succinate (Er) 50 Mg Tab.Er.24h PO DAILY [facility] Nitroglycerin 0.4 mg 05/10/24 10:20 Nitroglycerin Sl Tabs 0.4 Mg Tab SUBLINGUAL Q5M PRN Chest Pain Ranolazine 500 mg 05/10/24 12:00 Ranolazine 500 Mg Tab.Er.12h PO Q12HR [facility] Intake and Output 05/09/24 05/10/24 05/10/24 22:59 06:59 14:59 Other: Weight 108.862 kg Patient Weight 05/11/24 06:59 Weight 108.862 kg 05/10/24 08:10 05/10/24 08:10
[2024-05-10] MEDS ORDERED: ALBUTEROL NEBULIZED 2.5 MG/3 ML INHALATION PRN (13:08)
[2024-05-10] MEDS: amLODIPine 10 MG TAB PO SCH (13:31)
[2024-05-10] MEDS: EZETIMIBE 10 MG TAB PO SCH (13:32)
[2024-05-10] MEDS: lisinopriL 20 MG TAB PO SCH (13:32)
[2024-05-10] MEDS: METOPROLOL SUCCINATE (ER) 50 MG TAB.ER.24H PO SCH (13:32)
[2024-05-10] MEDS: ATORVASTATIN 80 MG TAB PO SCH (13:32)
[2024-05-10] MEDS: hydrALAZINE HCL 25 MG TAB PO SCH (13:32)
[2024-05-10] MEDS: CLOPIDOGREL 75 MG TAB PO SCH (13:32)
[2024-05-10] MEDS: RANOLAZINE 500 MG TAB.ER.12H PO SCH (13:33)
[2024-05-10] MEDS: ISOSORBIDE MONONITRATE ER 60 MG TAB.ER.24H PO SCH (13:34)
[2024-05-10] MEDS: hydroCHLOROthiazide 25 MG TAB PO SCH (13:34)
[2024-05-10 16:42] LABS: Glucose,Whole Blood 202 mg/dL (70-110)
[2024-05-10] MEDS: metFORMIN 500 MG TAB PO SCH (17:29)
[2024-05-10] MEDS ORDERED: BUDESONIDE 0.5 MG/2 ML NEBU INHALATION SCH (20:00)
[2024-05-10 20:26] LABS: Glucose,Whole Blood 136 mg/dL (70-110)
[2024-05-10] MEDS: IPRATROPIUM-ALBUTEROL 3 ML NEB INHALATION PRN (20:30)
[2024-05-10] MEDS: BUDESONIDE 0.5 MG/2 ML NEBU INHALATION SCH (20:30)
[2024-05-10] MEDS: NON FORMULARY DRUG (Gemfibrozil 600 MG Tab) PO SCH (20:33)
[2024-05-11 05:38] LABS: Glucose,Whole Blood 146 mg/dL (70-110)
[2024-05-11] MEDS: LEVOTHYROXINE 50 MCG TAB PO SCH (06:54)
[2024-05-11 08:23] VITALS: TEMP 97.9
[2024-05-11] MEDS: ASPIRIN 81 MG PO SCH (08:38)
[2024-05-11] MEDS ORDERED: ASPIRIN 325 MG TAB PO SCH (09:00)
[2024-05-11] MEDS ORDERED: ASPIRIN 81 MG PO SCH (09:00)
[2024-05-11 09:17] LABS: Mean Platelet Volume 8.9; Platelet Count 173 k/uL (150-450)
[2024-05-11] MEDS: RIVAROXABAN 2.5 MG TABLET PO SCH (10:23)
[2024-05-11 10:51] LABS: African American GFR (CKD) 64 (>60 ml/min/1.73 sqM); Anion Gap 5 mmol/L; Blood Urea Nitrogen 29 mg/dL (9-20); Calcium 9.1 mg/dL (8.4-10.2); Carbon Dioxide 26 mmol/L (22-30); Chloride 104 mmol/L (98-107); Glucose 146 mg/dL (74-99); Magnesium 1.8 mg/dL (1.6-2.3); Non-African American GFR(CKD) 56 (>60 ml/min/1.73 sqM); Potassium 4.3 mmol/L (3.5-5.1); Sodium 135 mmol/L (137-145)
--- NOTE | 2024-05-11 11:15 | CA ---
Transthoracic Echo Report Name: Steve Lea Age: 73 Gender: M : 1950 Exam Date: 05/10/2024 14:43 Exam Location: [facility] Ht (in): 72 Wt (lb): 240 Ordering Physician: Oz Clayton DO Attending/Referring Phys: Sales & Service Associate Isa Christianson RDCS Procedure CPT: Indications: UA Cardiac Hx: Technical Quality: Fair Contrast 1: Total Dose (mL): Contrast 2: Total Dose (mL): MEASUREMENTS (Male / Female) Normal Values 2D ECHO LV Diastolic Diameter PLAX 4.9 cm 4.2 - 5.9 / 3.9 - 5.3 cm LV Systolic Diameter PLAX 3.5 cm IVS Diastolic Thickness 1.5 cm 0.6 - 1.0 / 0.6 - 0.9 cm LVPW Diastolic Thickness 1.3 cm 0.6 - 1.0 / 0.6 - 0.9 cm LV Relative Wall Thickness 0.6 RV Internal Dim ED PLAX 4.7 cm M-MODE Aortic Root Diameter MM 3.4 cm LA Systolic Diameter MM 5.0 cm LA Ao Ratio MM 1.5 AV Cusp Separation MM 2.3 cm DOPPLER AV Peak Velocity 123.6 cm/s AV Peak Gradient 6.1 mmHg AV Mean Velocity 83.8 cm/s AV Mean Gradient 3.1 mmHg AV Velocity Time Integral 27.8 cm LVOT Peak Velocity 92.2 cm/s LVOT Peak Gradient 3.4 mmHg LVOT Velocity Time Integral 17.6 cm MV Area PHT 3.2 cm??? Mitral E Point Velocity 69.1 cm/s Mitral A Point Velocity 100.7 cm/s Mitral E to A Ratio 0.7 MV Deceleration Time 236.3 ms MV E' Velocity 4.1 cm/s Mitral E to MV E' Ratio 16.9 FINDINGS Left Ventricle Moderately increased left ventricular wall thickness. Left ventricular cavity size normal. No obvious regional wall motion abnormalities. Left ventricular ejection fraction is estimated at 50-55 %. Right Ventricle Right ventricular dilatation.Unable to estimate the right ventricular systolic pressure. Right Atrium Right atrium not well visualized. Left Atrium Mildly increased left atrial area. Mitral Valve Structurally normal mitral valve. No mitral stenosis. Mild mitral regurgitation. Aortic Valve No aortic valve stenosis or regurgitation. Tricuspid Valve Structurally normal tricuspid valve. Pulmonic Valve Structurally normal pulmonic valve. Pericardium No pericardial effusion. Aorta Normal size aortic root and proximal ascending aorta. CONCLUSIONS Normal LV function Previewed by: Dr. Mainor Pinto MD (Electronically Signed) Final Date: 11 May 2024 11:14
[2024-05-11 12:27] VITALS: RESP 18
[2024-05-11] MEDS: MAGNESIUM SULFATE-D5W PMX 1 GM in DEXTROSE/WATER 1 100ML.BAG IVPB ONE (12:31)
[2024-05-11 12:40] LABS: Glucose,Whole Blood 119 mg/dL (70-110)
--- NOTE | 2024-05-11 12:59 | P.PN ---
Subjective HISTORY OF PRESENT ILLNESS: This is a 73-year-old male with a past medical history significant for coronary artery disease with previous stenting, peripheral arterial disease with previous revascularization, carotid stenosis with previous bilateral carotid endarterectomy and stenting of right ICA, hypertension, hyperlipidemia, and COPD. Patient follows in the office with Dr. Arias. We have been asked to see the patient in consultation for chest pain. Patient examined at the bedside in the emergency room. Patient states he did not take any of his cardiac medications yesterday. He states that he notices blood pressure was elevated at home. He began to have chest discomfort yesterday in the middle of his chest. He took nitro with relief of his chest pain. It is noted that the patient is also on oral steroids on an outpatient basis. He presented to the hospital for further evaluation. Patient was found to have elevated troponins and was started on IV heparin. Patient's blood pressure on admission was elevated at 199/109. DIAGNOSTICS: - EKG reveals sinus mechanism with no signs of acute ischemia - Chest xray COPD with some patchy atelectasis or developing infiltrate at the right base. Nodular appearing opacity at the left base could represent some nodular atelectasis. - Laboratory data: WBC 12.1. Hemoglobin 13.2. Platelet count 187. Sodium 138. Potassium 4.2. BUN 28. Creatinine 1.11. Troponin 0.074. 0.121. proBNP 602. - Current home cardiac medications include lisinopril 20 mg daily, hydrochlorothiazide 25 mg daily, hydralazine 25 mg 3 times daily, amlodipine 10 mg daily, Xarelto 2.5 mg daily, Ranexa 500 mg twice a day, metoprolol succinate 50 mg daily, Imdur 60 mg daily, Zetia 10 mg daily, Plavix 75 mg daily, Lipitor 80 mg daily, aspirin 81 mg daily - Most recent echocardiogram obtained in October 2023 revealed ejection fraction 45 to 50%, trace MR, trace TR, no pericardial effusion - Cardiac catheterization history: December 2023 revealing patent stent in the LAD, severe disease involving mid left circumflex just proximal to the stented segment, and intermediate to severe disease involving the RCA distally appears to be unchanged from prior. Patient underwent stenting of the mid circumflex. 05/11/2024 Patient examined this morning at the bedside. Patient currently denies chest pain or pressure. He denies shortness of breath. Patient's blood pressures are improved today. Echocardiogram completed revealing ejection fraction 50 to 55% with mild MR. PHYSICAL EXAM: VITAL SIGNS: Reviewed. GENERAL: Well-developed in no acute distress. HEENT: Head is normocephalic. Pupils are equal, round. Sclerae anicteric. Mucous membranes of the mouth are moist. Neck supple. No JVD or thyromegaly LUNGS: Respirations even and unlabored. Lungs essentially clear to auscultation bilaterally. HEART: Regular rate and rhythm. S1 and S2 heard. ABDOMEN: Soft. Nondistended. Nontender. EXTREMITIES: Normal range of motion. No clubbing or cyanosis. Peripheral pulses intact. No lower extremity edema NEUROLOGIC: Awake and alert. Oriented x 3. ASSESSMENT: Chest pain Elevated troponins, suspect type II [place] secondary to hypertensive emergency Hypertensive emergency, improving, patient reports not taking any medications yesterday Coronary artery disease with previous stenting of circumflex and LAD Known intermediate to severe disease involving the RCA Peripheral arterial disease with previous lower extremity revascularization Carotid stenosis status post bilateral carotid endarterectomy and previous stenting of right ICA Hypertension Hyperlipidemia COPD PLAN: Continue current cardiac medications Discontinue IV heparin Continue aspirin and Plavix Resume low-dose Xarelto 2.5 mg twice a day. For unknown reason patient was only taking this once a day. Patient was previously taking samples for Xarelto. Prescription for Xarelto called into patient's mail order pharmacy by staff at [facility]. Patient to contact the office if he has any issues obtaining this medication. Patient may be discharged home today from a cardiac standpoint Patient to follow-up postdischarge with Dr. Arias Nurse practitioner note has been reviewed by physician. Signing provider agrees with the documented findings, assessment, and plan of care documented by [employer] GL[employer] INSTALLER as a scribe. Objective - Vital Signs Vital signs: Vital Signs Temp 97.9 F 05/11/24 08:21 Pulse 56 L 05/11/24 12:26 Resp 18 05/11/24 12:26 BP 144/72 05/11/24 12:26 Pulse Ox 94 L 05/11/24 12:26 FiO2 Intake & Output 05/10/24 05/11/24 05/11/24 18:59 06:59 18:59 Intake Total 185.793 334.36 333.847 Balance 185.793 334.36 333.847 Weight 108.862 kg 109.2 kg Intake: IV 10 Invasive Line 2 10 Intake, IV Titration 67.793 94.36 87.847 Amount Heparin Sod,Pork in 0.45% 67.793 94.36 87.847 NaCl 25,000 unit In 0.45 % NaCl 1 250ml.bag @ 9.18 UNITS/KG/HR 9.994 mls/hr IV .Q24H [facility] Rx#: [id number] Oral 118 240 236 Other: Voiding Method Toilet Toilet # Voids 1 1 - Labs CBC & Chem 7: 05/11/24 08:54 05/11/24 08:54 Labs: Abnormal Lab Results - Last 24 Hours (Table) 05/10/24 05/10/24 05/11/24 Range/Units 16:41 20:24 00:46 APTT (22.0-30.0) sec Sodium (137-145) mmol/L BUN (9-20) mg/dL Creatinine (0.66-1.25) mg/dL Glucose (74-99) mg/dL POC Glucose (mg/dL) 202 H 136 H (70-110) mg/dL Troponin I 0.129 H* (0.000-0.034) ng/mL 05/11/24 05/11/24 05/11/24 Range/Units 00:46 05:37 08:54 APTT 40.1 H (22.0-30.0) sec Sodium 135 L (137-145) mmol/L BUN 29 H (9-20) mg/dL Creatinine 1.29 H (0.66-1.25) mg/dL Glucose 146 H (74-99) mg/dL POC Glucose (mg/dL) 146 H (70-110) mg/dL Troponin I (0.000-0.034) ng/mL 05/11/24 05/11/24 Range/Units 08:54 12:38 APTT 47.1 H (22.0-30.0) sec Sodium (137-145) mmol/L BUN (9-20) mg/dL Creatinine (0.66-1.25) mg/dL Glucose (74-99) mg/dL POC Glucose (mg/dL) 119 H (70-110) mg/dL Troponin I (0.000-0.034) ng/mL
[2024-05-11 15:36] VITALS: BP 128/63; PULSE 59
[2024-05-11 18:18] LABS: Chol/HDL Ratio 3.61 Ratio; LDL Cholesterol,Calculated 71.7 mg/dL (0.0-131.0)
--- NOTE | 2024-05-12 10:02 | P.DS ---
Providers Date of admission: 05/10/24 10:21 Expected date of discharge: 05/11/24 Attending physician: Terrell Silva Consults: 05/10/24 10:20 Consult Physician Urgent Consulting Provider: Pako Arias Consult Reason/Comments: ua Do you want consulting provider notified?: Yes Primary care physician: Juan Carlos Franco MD Hospital Course: Final diagnosis -Mild elevation of troponin, type II non-ST elevation [facility] secondary to hypertensive urgency -Nodular opacities on the chest x-ray which was not seen on the CT scan recommend outpatient follow-up -Incidental finding of exophytic lesion on the kidney: Follow-up with urology as an outpatient and repeat imaging in 3 months -Abdominal aortic aneurysm and descending thoracic arctic aneurysm patient follows up with vascular surgery as an outpatient -Hypertension patient did not take his medications today morning blood pressure is better controlled now -Hypothyroidism -Hyperlipidemia -Coronary artery disease -Obesity with a BMI 32.7 -Type 2 diabetes mellitus, uncontrolled with hyperglycemia -DVT prophylaxis -GI prophylaxis -Full code Discharge disposition Patient is being discharged in a stable condition with guarded prognosis to home . Patient will follow-up with Dr. EDGARDO Franco in the outpatient setting upon discharge. Patient is to continue with close outpatient follow-up with cardiology as scheduled. Total time taken is greater than 35 minutes. Hospital course This is a 73-year-old male who was recently admitted with chest pain and shortness of breath being evaluated by cardiology with uncontrolled hypertension as well. Patient has been reevaluated by cardiology recommending outpatient follow-up and has been cleared for discharge. Patient with significant past medical history follows with multiple specialties in the outpatient setting. Overall guarded prognosis and high risk for readmissions given these significant comorbidities. Patient reports to feeling well and would like to go home. Please refer to cardiology notes for further HPI. Currently no reports of chest pain, shortness of breath, or palpitations. Patient is afebrile. No reports of nausea or vomiting and patient is tolerating diet. Patient will be discharged home today. Physical exam: Gen: This is a 73-year-old male who is awake, alert and oriented x 3, well- developed, elderly appearing, obese HEENT: Head is atraumatic, normocephalic. Pupils equal, round. Sclerae is anicteric. NECK: Supple. No JVD. No lymphadenopathy. No thyromegaly. LUNGS: Diminished breath sounds bilaterally otherwise clear to auscultation. No wheezes or rhonchi. No intercostal retractions. HEART: S1, S2 are muffled ABDOMEN: Soft. Obese. Bowel sounds are present. No masses. No tenderness. EXTREMITIES: No pedal edema. No calf tenderness. NEUROLOGICAL: Patient is awake, alert and oriented x3. Cranial nerves 2 through 12 are grossly intact. Please refer to medication reconciliation sheet for a list of medications. The impression and plan of care has been dictated by Leticia Shirley, Nurse Practitioner as directed. Dr. Nel MD I have performed a history and examination and MDM of this patient, discussed th e same with the dictator, and agree with the dictator's assessment and plan as written ,documented as a scribe. Based on total visit time, I have performed more than 50% of the visit. Patient Condition at Discharge: Fair Plan - Discharge Summary New Discharge Prescriptions: New Clopidogrel [Plavix] 75 mg PO DAILY tab Rivaroxaban [Xarelto] 2.5 mg PO BID tab Continue Nitroglycerin Sl Tabs [Nitrostat] 0.4 mg SL Q5M PRN PRN Reason: Chest Pain Aspirin 81 mg PO DAILY lisinopriL [Zestril] 20 mg PO DAILY Isosorbide Mononitrate ER [Imdur] 60 mg PO DAILY amLODIPine [Norvasc] 10 mg PO DAILY Ipratropium/Albuterol Sulfate [Combivent Respimat Inhaler] 1 puff INHALATION RT-QID PRN PRN Reason: Shortness Of Breath gemfibroziL [Lopid] 600 mg PO BID Atorvastatin [Lipitor] 80 mg PO DAILY Multivitamin [Men's Multi-Vitamin] 1 tab PO HS Budesonide [Pulmicort] 0.5 mg INHALATION RT-BID Ascorbic Acid [Vitamin C] 1,500 mg PO DAILY Montelukast [Singulair] 10 mg PO HS hydrALAZINE HCL [Apresoline] 25 mg PO TID #90 tab Levothyroxine Sodium [Synthroid] 50 mcg PO DAILY@0630 #30 tab Metoprolol Succinate (ER) [Toprol XL] 50 mg PO DAILY Ranolazine [Ranexa] 500 mg PO Q12HR 30 Days #60 tab predniSONE See Taper PO DAILY Triamcinolone 0.5% Cream [Kenalog 0.5% Cream] 1 applic TOPICAL DAILY Ezetimibe [Zetia] 10 mg PO DAILY Albuterol Nebulized [Ventolin Nebulized] 2.5 mg INHALATION RT-QID PRN PRN Reason: Shortness Of Breath Fish Oil 1600mg 3 cap PO HS Cholecalciferol [Vitamin D3 (125 Mcg = 5000 Iu)] 125 mcg PO DAILY metFORMIN HCL ER [Glucophage XR] 500 mg PO BID Zinc Gluconate [Zinc] 50 mg PO DAILY hydroCHLOROthiazide [Hydrodiuril] 25 mg PO DAILY 30 Days #30 tab EPINEPHrine (Auto Inject) [Epipen] 0.3 mg IM ONCE PRN PRN Reason: Anaphylaxis Discontinued Rivaroxaban [Xarelto] 2.5 mg PO DAILY Clopidogrel [Plavix] 75 mg PO DAILY Discharge Medication List Aspirin 81 mg PO DAILY 05/17/17 [History] Atorvastatin [Lipitor] 80 mg PO DAILY 05/17/17 [History] Ipratropium/Albuterol Sulfate [Combivent Respimat Inhaler] 1 puff INHALATION RT- QID PRN 05/17/17 [History] Isosorbide Mononitrate ER [Imdur] 60 mg PO DAILY 05/17/17 [History] Multivitamin [Men's Multi-Vitamin] 1 tab PO HS 05/17/17 [History] Nitroglycerin Sl Tabs [Nitrostat] 0.4 mg SL Q5M PRN 05/17/17 [History] amLODIPine [Norvasc] 10 mg PO DAILY 05/17/17 [History] gemfibroziL [Lopid] 600 mg PO BID 05/17/17 [History] lisinopriL [Zestril] 20 mg PO DAILY 05/17/17 [History] Albuterol Nebulized [Ventolin Nebulized] 2.5 mg INHALATION RT-QID PRN 10/11/23 [History] Ascorbic Acid [Vitamin C] 1,500 mg PO DAILY 10/11/23 [History] Budesonide [Pulmicort] 0.5 mg INHALATION RT-BID 10/11/23 [History] Cholecalciferol [Vitamin D3 (125 Mcg = 5000 Iu)] 125 mcg PO DAILY 10/11/23 [History] Ezetimibe [Zetia] 10 mg PO DAILY 10/11/23 [History] Fish Oil 1600mg 3 cap PO HS 10/11/23 [History] Montelukast [Singulair] 10 mg PO HS 10/11/23 [History] Zinc Gluconate [Zinc] 50 mg PO DAILY 10/11/23 [History] metFORMIN HCL ER [Glucophage XR] 500 mg PO BID 10/11/23 [History] Levothyroxine Sodium [Synthroid] 50 mcg PO DAILY@0630 #30 tab 10/14/23 [Rx] hydrALAZINE HCL [Apresoline] 25 mg PO TID #90 tab 10/14/23 [Rx] Metoprolol Succinate (ER) [Toprol XL] 50 mg PO DAILY 12/27/23 [History] Ranolazine [Ranexa] 500 mg PO Q12HR 30 Days #60 tab 12/28/23 [Rx] hydroCHLOROthiazide [Hydrodiuril] 25 mg PO DAILY 30 Days #30 tab 12/28/23 [Rx] EPINEPHrine (Auto Inject) [Epipen] 0.3 mg IM ONCE PRN 05/10/24 [History] Triamcinolone 0.5% Cream [Kenalog 0.5% Cream] 1 applic TOPICAL DAILY 05/10/24 [History] predniSONE See Taper PO DAILY 05/10/24 [History] Clopidogrel [Plavix] 75 mg PO DAILY tab 05/11/24 [Rx] Rivaroxaban [Xarelto] 2.5 mg PO BID tab 05/11/24 [Rx] Follow up Appointment(s)/Referral(s): Pako Arias MD [STAFF PHYSICIAN] - 1 Week (office will call and make appointment) Juan Carlos Franco MD [Primary Care Provider] - 05/21/24 Patient Instructions/Handouts: Angina (DC), Chest Pain (DC), Hypertension (DC) Activity/Diet/Wound Care/Special Instructions: New Xarelto RX 2.5mg TWICE A DAY called into your mail order pharmacy by cardiology office. If you have any issues obtaining medication, call the cardiology office Follow-up with primary care provider on discharge Follow-up with cardiology as instructed Continue taking medications as prescribed Continue heart healthy diet Discharge Disposition: HOME SELF-CARE
== END 2024-05-11 15:52 | disposition home or self-care (01) ==
LOC: EC 07:32 → 3SCARD 10:21
PROVIDERS: ADMIT Hospitalist; ATTEND Hospitalist
DX: I16.1 Hypertensive emergency (principal); I21.A1 Myocardial infarction type 2; E11.65 Type 2 diabetes mellitus with hyperglycemia; I25.10 Atherosclerotic heart disease of native coronary artery without angina pectoris; J44.9 Chronic obstructive pulmonary disease, unspecified; E78.5 Hyperlipidemia, unspecified; I10 Essential (primary) hypertension; I65.23 Occlusion and stenosis of bilateral carotid arteries; E11.51 Type 2 diabetes mellitus with diabetic peripheral angiopathy without gangrene; I71.40 Abdominal aortic aneurysm, without rupture, unspecified; I71.23 Aneurysm of the descending thoracic aorta, without rupture; R91.8 Other nonspecific abnormal finding of lung field; E03.9 Hypothyroidism, unspecified; N28.89 Other specified disorders of kidney and ureter; I25.2 Old myocardial infarction; E66.9 Obesity, unspecified; Z68.32 Body mass index [BMI] 32.0-32.9, adult; Z86.73 Personal history of transient ischemic attack (TIA), and cerebral infarction without residual deficits; Z87.891 Personal history of nicotine dependence; Z95.5 Presence of coronary angioplasty implant and graft; Z79.01 Long term (current) use of anticoagulants; Z79.02 Long term (current) use of antithrombotics/antiplatelets; Z79.82 Long term (current) use of aspirin; Z79.84 Long term (current) use of oral hypoglycemic drugs; Z79.890 Hormone replacement therapy; Z79.899 Other long term (current) drug therapy
CPT/HCPCS: 96366 ×3; 96376; 96365; 99291; 36415; 94640 ×3; 93005; 93306; 85379; 83880; 80061; 80053; 80048; 83735 ×2; 84484 ×2; 85025; 85049; 85610; 85730 ×2; 87636; 71046; 71275; G0378 ×2; J1644 ×3; Q9967